=== PATIENT | male | born 1955 | race Caucasian/White ===

== ENCOUNTER → 2019-11-30 | Outpatient (CLI) | payer MEDICARE ==
[2019-11-30 11:24] LABS: African American GFR (CKD) >90 (>60 ml/min/1.73 sqM); Blood Urea Nitrogen 17 mg/dL (9-20); Non-African American GFR(CKD) >90 (>60 ml/min/1.73 sqM)
--- NOTE | 2019-11-30 12:56 | CT ---
EXAMINATION TYPE: CT soft tissue neck w con DATE OF EXAM: 11/30/2019 HISTORY: Bilateral neck tenderness with pain during swallowing. COMPARISON: NONE CT DLP: 603.9 mGycm. Automated Exposure Control for Dose Reduction was Utilized. TECHNIQUE: CT scan of the neck is performed with IV Contrast, patient injected with 100 mL of Isovue 300, axial images are obtained, coronal and sagittal reformatted images are reviewed. FINDINGS: Airway: There is irregularity at the tongue base and anterior margin of the vallecula that may repres ent secretions or folding however direct visualization is recommended given this patient's symptoms o f neck pain when swallowing. Piriform sinuses are unremarkable. True vocal cords are opposed and subo ptimally evaluated. False focal cords are unremarkable. Airway is significantly narrowed by tonsillar hypertrophy and diminutive at the level of the tonsils. Numerous dystrophic tonsilliths are also see n. Parotid/submandibular glands: Small calcification is present within the right parotid gland and the deep lobe. No additional gross abnormality seen. Carotid/Vascular Structures: Common carotid arteries and cervical portions of the internal carotid ar maggi are patent without hemodynamically significant stenosis. Vertebral arteries are also patent. Min imal atherosclerosis of the aortic arch. Osseous Structures: Moderate focal degenerative disc disease of the cervical spine at C4-C5 and C5-C6 with posterior projecting disc osteophyte complexes. Other: Superficial ovoid 7 mm density could represent a small lymph node, venous varix or sebaceous c yst. The lungs demonstrate mild background centrilobular emphysematous change and dependent subsegmen mary atelectasis. IMPRESSION: 1. Severe narrowing of the airway at the level of tonsils, diminutive and nearly obstructed due to to nsillar hypertrophy. 2. Irregularity of the tongue base and anterior vallecula that could represent simply folding or secr etions however direct visualization is recommended given the patient's complaint. 3. Punctate calcification in the deep lobe of the right parotid gland (sialolith). 4. Suboptimal evaluation of the true vocal cords given their close apposition. False focal cords are unremarkable.
[2019-12-01 11:57] LABS: ANA Pattern Homogeneous; ANA Pattern 2 See Footnote
== END | disposition home or self-care (01) ==
LOC: RADCTMAIN 10:28
PROVIDERS: ATTEND Otolaryngology
DX: J35.1 Hypertrophy of tonsils (principal); K11.8 Other diseases of salivary glands; R93.0 Abnormal findings on diagnostic imaging of skull and head, not elsewhere classified; K11.7 Disturbances of salivary secretion; K11.1 Hypertrophy of salivary gland
CPT/HCPCS: 85652; 82565; 84520; 86038; 86039; 86235; 70491; 36415; Q9967

== ENCOUNTER → 2021-07-17 | Outpatient (CLI) | payer MEDICARE ==
[2021-07-17 19:59] LABS: Albumin 4.2 g/dL (3.8-4.9); Albumin/Globulin Ratio 1.48 (1.60-3.17); Anion Gap 10.7 mmol/L (4.00-12.00); BUN/Creat Ratio 24.65 Ratio (12.00-20.00); Calcium 9.8 mg/dL (8.7-10.3); Carbon Dioxide 27.2 mmol/L (21.6-31.8); Chol/HDL Ratio 3.54 Ratio; Globulin 2.8 g/dL (1.6-3.3); HDL Cholesterol 42.1 mg/dL (40.00-60.00); LDL Cholesterol,Calculated 78.3 mg/dL (0.0-131.0); Non-African American GFR(CKD) 108.7 (60.0-200.0); Potassium 4.8 mmol/L (3.5-5.5); Total Bilirubin 0.3 mg/dL (0.30-1.20); VLDL Calculation 28.6 mg/dL (5.00-40.00)
== END | disposition home or self-care (01) ==
LOC: LABWHC1 10:29
PROVIDERS: ATTEND Internal Medicine Endocrinology, Diabetes & Metabolism
DX: E11.65 Type 2 diabetes mellitus with hyperglycemia (principal)
CPT/HCPCS: 36415; 80053; 80061; 82043; 82570; 83036; 84443

== ENCOUNTER → 2022-08-26 | Outpatient (CLI) | payer MEDICARE ==
[2022-08-26 15:07] LABS: ALT 18 U/L (10-49); AST 19 U/L (14-35); African American GFR (CKD) 124.2 (60.0-200.0); Albumin 4.2 g/dL (3.8-4.9); Albumin/Globulin Ratio 1.54 (1.60-3.17); Alkaline Phosphatase 95 U/L (41-126); BUN/Creat Ratio 18.51 Ratio (12.00-20.00); Blood Urea Nitrogen 10.7 mg/dL (9.0-27.0); Calcium 9.7 mg/dL (8.7-10.3); Carbon Dioxide 27.3 mmol/L (20.0-27.5); Chloride 102 mmol/L (96-109); Chol/HDL Ratio 3.95 Ratio; Globulin 2.7 g/dL (1.6-3.3); Glucose 161 mg/dL (70-110); LDL Cholesterol,Calculated 84.4 mg/dL (0.0-131.0); Non-African American GFR(CKD) 107.1 (60.0-200.0); Sodium 140 mmol/L (135-145); Total Protein 6.9 g/dL (6.2-8.2)
[2022-08-26 19:58] LABS: Microalbumin Creatinine Ratio <30 mg/g Creat (0-30); Urine Creatinine 15.9 mg/dL (39.0-259.0)
== END | disposition home or self-care (01) ==
LOC: LABWHC1 08:34
PROVIDERS: ATTEND Internal Medicine Endocrinology, Diabetes & Metabolism
DX: E11.65 Type 2 diabetes mellitus with hyperglycemia (principal)
CPT/HCPCS: 36415; 80053; 80061; 82043; 82570; 83036; 84443

== ENCOUNTER → 2023-03-07 | Outpatient (CLI) | payer MEDICARE ==
[2023-03-07 16:12] LABS: ALT 20 U/L (10-49); AST 18 U/L (14-35); Albumin 4.1 d/dL (3.8-4.9); Albumin/Globulin Ratio 1.64 Ratio (1.60-3.17); Alkaline Phosphatase 109 U/L (41-126); BUN/Creat Ratio 19.17 Ratio (12.00-20.00); Blood Urea Nitrogen 11.5 mg/dL (9.0-27.0); Calcium 9.9 mg/dL (8.7-10.3); Carbon Dioxide 26.2 mmol/L (21.6-31.8); Chloride 96 mmol/L (96-109); Chol/HDL Ratio 3.36 Ratio; Globulin 2.5 d/dL (1.6-3.3); Glucose 279 mg/dL (70-110); LDL Cholesterol,Calculated 67.6 mg/dL (0.0-131.0); Potassium 4.5 mmol/L (3.5-5.5); Sodium 135 mmol/L (135-145); Total Bilirubin 0.5 mg/dL (0.3-1.2); Total Protein 6.6 d/dL (6.2-8.2)
[2023-03-07 21:58] LABS: Microalbumin Creatinine Ratio <129 mg/g Cr (0-30); Urine Creatinine 9.3 mg/dL (39.0-259.0)
== END | disposition home or self-care (01) ==
LOC: LABWHC1 06:56
PROVIDERS: ATTEND Internal Medicine Endocrinology, Diabetes & Metabolism
DX: E11.65 Type 2 diabetes mellitus with hyperglycemia (principal)
CPT/HCPCS: 36415; 80053; 80061; 82043; 82570; 83036; 84443

== ENCOUNTER → 2023-06-06 | Outpatient (CLI) | payer MEDICARE ==
[2023-06-06 16:17] LABS: ALT 16 U/L (10-49); AST 19 U/L (14-35); Albumin 4.1 d/dL (3.8-4.9); Albumin/Globulin Ratio 1.71 Ratio (1.60-3.17); Alkaline Phosphatase 92 U/L (41-126); BUN/Creat Ratio 20.83 Ratio (12.00-20.00); Blood Urea Nitrogen 12.5 mg/dL (9.0-27.0); Calcium 9.5 mg/dL (8.7-10.3); Carbon Dioxide 27.5 mmol/L (21.6-31.8); Chloride 102 mmol/L (96-109); Chol/HDL Ratio 3.08 Ratio; Globulin 2.4 d/dL (1.6-3.3); Glucose 179 mg/dL (70-110); LDL Cholesterol,Calculated 69.4 mg/dL (0.0-131.0); Potassium 4.6 mmol/L (3.5-5.5); Sodium 140 mmol/L (135-145); Total Bilirubin 0.4 mg/dL (0.3-1.2); Total Protein 6.5 d/dL (6.2-8.2); VLDL Calculation 14.28 mg/dL (5.00-40.00)
[2023-06-07 02:57] LABS: Microalbumin Creatinine Ratio <111 mg/g Cr (0-30); Urine Creatinine 10.8 mg/dL (39.0-259.0)
== END | disposition home or self-care (01) ==
LOC: LABWHC1 08:33
PROVIDERS: ATTEND Internal Medicine Endocrinology, Diabetes & Metabolism
DX: E11.65 Type 2 diabetes mellitus with hyperglycemia (principal)
CPT/HCPCS: 36415; 80053; 80061; 82043; 82570; 83036; 84443

== ENCOUNTER → 2023-07-16 | Outpatient (CLI) | payer MEDICARE ==
[2023-07-16 10:03] LABS: African American GFR (CKD) >90 (>60 ml/min/1.73 sqM); Blood Urea Nitrogen 17 mg/dL (9-20); Non-African American GFR(CKD) >90 (>60 ml/min/1.73 sqM)
--- NOTE | 2023-07-16 11:17 | CT ---
EXAMINATION TYPE: CT chest w con DATE OF EXAM: 07/16/2023 COMPARISON: None HISTORY: Lung nodule, DALIA, recent hx PNE CT DLP: 557 mGycm Automated exposure control for dose reduction was used. CONTRAST: CT scan of the chest is performed with IV Contrast, patient injected with 100 mL of Isovue 300. FINDINGS: LUNGS: There is a 4.9 mm pulmonary nodule lateral segment right middle lobe. No additional nodules pr esent. Dependent atelectasis at the lung bases. There is no pleural effusion or pneumothorax seen. T he tracheobronchial tree is patent. MEDIASTINUM: There are no greater than 1 cm hilar or mediastinal lymph nodes. No pericardial effusi on is seen. Thoracic aorta is of normal caliber. The heart is mildly enlarged. UPPER ABDOMEN: No significant abnormality appreciated. OTHER: No additional significant abnormality is seen. IMPRESSION: 1.There is a 4.9 mm pulmonary nodule lateral segment right middle lobe. No additional nodules present . Twelve-month follow-up recommended.
== END | disposition home or self-care (01) ==
LOC: RADCTMAIN 08:55
PROVIDERS: ATTEND Internal Medicine Critical Care Medicine
DX: R91.1 Solitary pulmonary nodule (principal); R06.00 Dyspnea, unspecified
CPT/HCPCS: 82565; 84520; 71260; 36415; Q9967

== ENCOUNTER 2023-08-08 19:22 | Inpatient (IN) | payer MEDICARE ==
[2023-08-08 19:54] LABS: Glucose,Whole Blood 184 mg/dL (70-110)
[2023-08-08] MEDS ORDERED: ACETAMINOPHEN TAB 500 MG TAB PO STA (20:11)
[2023-08-08] MEDS ORDERED: SODIUM CHLORIDE 0.9% 1,000 ML IV STA (20:11)
--- NOTE | 2023-08-08 20:13 | XR ---
EXAMINATION TYPE: XR chest 1V portable DATE OF EXAM: 08/08/2023 Comparison: 10/29/2018 Clinical History: 68-year-old male confusion, altered mental status covid Findings: Heart upper limits of normal in size. Aorta within normal limits. Mild increased interstitial density . Mild hyperinflation. No ruthie consolidation or pleural effusion. IMPRESSION: COPD. Mild increased interstitial density could reflect bronchitis or subtle underlying COVID infiltr ates.
[2023-08-08 20:22] LABS: HCT 42.6 % (39.0-53.0); HGB 14.6 gm/dL (13.0-17.5); MCH 29.2 pg (25.0-35.0); MCHC 34.3 g/dL (31.0-37.0); MCV 85.1 fL (80.0-100.0); Mean Platelet Volume 7.9; Platelet Count 169 k/uL (150-450); RBC 5.01 m/uL (4.30-5.90); RDW 13.9 % (11.5-15.5); WBC 10.1 k/uL (3.8-10.6)
--- NOTE | 2023-08-08 20:40 | ED ---
General Adult HPI - General Chief complaint: Altered Mental Status Stated complaint: Altered Mental Time Seen by Provider: 08/08/23 19:42 Source: EMS Mode of arrival: EMS Limitations: altered mental status - History of Present Illness Initial comments: Dictation was produced using [employer] dictation software. please excuse any grammatical, word or spelling errors. Chief Complaint: 68-year-old male presents for altered mental status History of Present Illness: Patient is 68-year-old male presents emergency department for altered mental status. Patient has been positive for COVID-19 for 7 days. He's been sick and weak for the last 2 weeks. Currently patient is brought in by EMS after his family member called for concerns of altered mental status. Patient is vaccinated for COVID-19. Complains of total body pain, cough, shortness of breath. The ROS documented in this emergency department record has been reviewed and confirmed by me. Those systems with pertinent positive or negative responses have been documented in the HPI. All other systems are other negative and/or noncontributory. - Related Data Home Medications Medication Instructions Recorded Confirmed Albuterol Sulfate [Proair Hfa] 2 inhalation INHALATION Q6HR PRN 12/26/15 12/26/15 Ascorbic Acid [Vitamin C] 1 tab PO HS 12/26/15 01/02/16 Aspirin EC [Ecotrin] 325 mg PO DAILY 12/26/15 12/26/15 Levothyroxine Sodium [Synthroid] 1 tab PO DAILY 12/26/15 01/02/16 Lisinopril-Hctz 10-12.5 mg 1 tab PO DAILY 12/26/15 01/02/16 [Zestoretic 10-12.5] Meloxicam 15 mg PO DAILY PRN 12/26/15 01/02/16 Multivit-Min/FA/Lycopen/Lutein 1 tab PO DAILY 12/26/15 01/02/16 [Centrum Silver Tablet] Non Formulary Drug 10 mg PO DAILY 12/26/15 01/02/16 Omeprazole 20 mg PO DAILY 12/26/15 01/02/16 Simvastatin [Zocor] 40 mg PO HS 12/26/15 01/02/16 carvediloL [Coreg] 12.5 mg PO BID 12/26/15 01/02/16 metFORMIN HCL [Glucophage] 2 tab PO BID 12/26/15 01/02/16 sitaGLIPtin [Januvia] 50 mg PO DAILY 12/26/15 01/02/16 traMADol HCl [Ultram] 50 mg PO Q6H PRN 12/26/15 01/02/16 Allergies Allergy/AdvReac Type Severity Reaction Status Date / Time No Known Allergies Allergy Verified 08/08/23 19:33 Review of Systems ROS Statement: Those systems with pertinent positive or pertinent negative responses have been documented in the HPI. ROS Other: All systems not noted in ROS Statement are negative. Past Medical History Past Medical History: Coronary Artery Disease (CAD), COPD, Diabetes Mellitus, GERD/Reflux, Hyperlipidemia, Hypertension, Myocardial Infarction (AL), Musculoskeletal Disorder, Osteoarthritis (OA), Thyroid Disorder Additional Past Medical History / Comment(s): underactive thyroid, L2, L3 spinal vertebrae abnormality Last Myocardial Infarction Date:: 11/2011 History of Any Multi-Drug Resistant Organisms: None Reported Past Surgical History: Heart Catheterization With Stent, Orthopedic Surgery Additional Past Surgical History / Comment(s): 1984 - left knee surgery - ligament repair left knee Past Anesthesia/Blood Transfusion Reactions: No Reported Reaction Date of Last Stent Placement:: 11/2011 Past Psychological History: No Psychological Hx Reported Smoking Status: Current every day smoker Past Alcohol Use History: Rare Past Drug Use History: None Reported - Past Family History Father Family Medical History: No Reported History General Exam - General Exam Comments Initial Comments: PHYSICAL EXAM: General Impression: Alert and oriented x3, not in acute distress HEENT: Normocephalic atraumatic, extra-ocular movements intact, pupils equal and reactive to light bilaterally, mucous membranes moist. Cardiovascular: Heart regular rate and rhythm Chest: Able to complete full sentences, no retractions, no tachypnea Abdomen: abdomen soft, non-tender, non-distended, no organomegaly Musculoskeletal: Pulses present and equal in all extremities, no peripheral edema Motor: no focal deficits noted Neurological: CN II-XII grossly intact, no focal motor or sensory deficits noted Skin: Intact with no visualized rashes Psych: Normal affect and mood Limitations: altered mental status Course Vital Signs 08/08/23 19:23 Temperature 102.1 F H Pulse Rate 109 H Respiratory 20 Rate Blood Pressure 121/75 O2 Sat by Pulse 93 L Oximetry EKG Findings - EKG Comments: EKG Findings:: My EKG interpretation: Ventricular rate 111, sinus tachycardia,. 156, QRS 106, QTC 340. No VA prolongation, no QTC prolongation, no ST or T-wave changes noted. Overall, this EKG is unremarkable Medical Decision Making - Medical Decision Making Was pt. sent in by a medical professional or institution (, MIHIR, STEAM FITTER SUPERVISOR, urgent care, hospital, or alf...) When possible be specific @ -No Did you speak to anyone other than the patient for history (EMS, parent, family, police, friend...)? What history was obtained from this source @ -No Did you review nursing and triage notes (agree or disagree)? Why? @ -I reviewed and agree with nursing and triage notes Were old charts reviewed (outside hosp., previous admission, EMS record, old EKG, old radiological studies, urgent care reports/EKG's, alf records)? Report findings @ -No old charts were reviewed Differential Diagnosis (chest pain, altered mental status, abdominal pain women, abdominal pain men, vaginal bleeding, musculoskeletal, weakness, fever, dyspnea, syncope, headache, dizziness, GI bleed, back pain, seizure, CVA, palpatations, mental health)? @ -Differential Altered Mental Status: Hypoglycemia, DKA, hypercapnia, ETOH, overdose, CO poisoning, trauma, myxedema coma, HTN encephalopathy, infection, encephalitis, psychosis, intercranial hemorrhage, hepatic encephalopathy, meningitis, CVA, this is not meant to be an all-inclusive list EKG interpreted by me (3pts min.). @ -None done X-rays interpreted by me (1pt min.). @ -X-ray shows no acute processes. CT interpreted by me (1pt min.). @ -Computed tomography scan the brain shows no acute processes intracranial U/S interpreted by me (1pt. min.). @ -None done What testing was considered but not performed or refused? (CT, X-rays, U/S, la bs)? Why? @ -None What meds were considered but not given or refused? Why? @ -None Did you discuss the management of the patient with other professionals (professionals i.e. MIHIR Eldridge, STEAM FITTER SUPERVISOR, lab, RT, psych nurse, social security specialist, director of publications, teacher, transportation security officer, case checker)? Give summary @ -Case discussed with hospitalist for admission Was smoking cessation discussed for >3mins.? @ -No Was critical care preformed (if so, how long)? @ -No Were there social determinants of health that impacted care today? How? (Homelessness, low income, unemployed, alcoholism, drug addiction, transportation, low edu. Level, literacy, decrease access to med. care, senior care, rehab)? @ -No Was there de-escalation of care discussed even if they declined (Discuss DNR or withdrawal of care, Hospice)? DNR status @ -No What co-morbidities impacted this encounter? (DM, HTN, Smoking, COPD, CAD, Cancer, CVA, ARF, Chemo, Hep., AIDS, mental health diagnosis, sleep apnea, morbid obesity)? @ -None Was patient admitted / discharged? Hospital course, mention meds given and route, prescriptions, significant lab abnormalities, going to OR and other pertinent info. @ -68-year-old male presents emergency department for altered mental status. Denies been positive for cocaine 19 for approximately 2 weeks. Patient is alert and oriented 4. Family at the bedside states that he's been confused and weak. Vital signs upon arrival shows 92% on nasal cannula. Temperature 12.1. Patient given antipyretics. Laboratory evaluation shows normal CBC, coag panel negative. D-dimer is a sit appropriate. Potassium 3.1. COVID-19 is positive. Patient became hypoxic after trial with no supplemental oxygen patient dropped to the 89% at the bedside. Patient given Decadron. Patient will be admitted with constipation pulmonology for hypoxia. Undiagnosed new problem with uncertain prognosis? @ -No Drug Therapy requiring intensive monitoring for toxicity (Heparin, Nitro, Insulin, Cardizem)? @ -No Were any procedures done? @ -No Diagnosis/symptom? Acute, or Chronic, or Acute on Chronic? Uncomplicated (without systemic symptoms) or Complicated (systemic symptoms)? @ -Respiratory failure Side effects of treatment? @ -No Exacerbation, Progression, or Severe Exacerbation? @ -No Poses a threat to life or bodily function? How? (Chest pain, USA, AL, pneumonia, PE, COPD, DKA, ARF, appy, cholecystitis, CVA, Diverticulitis, Homicidal, Suicidal, threat to staff... and all critical care pts) @ -yes - Lab Data Result diagrams: 08/08/23 20:03 08/08/23 20:03 Lab Results 08/08/23 08/08/2323 Range/Units 19:53 20:03 20:03 WBC 10.1 (3.8-10.6) k/uL RBC 5.01 (4.30-5.90) m/uL Hgb 14.6 (13.0-17.5) gm/dL Hct 42.6 (39.0-53.0) % MCV 85.1 (80.0-100.0) fL MCH 29.2 (25.0-35.0) pg MCHC 34.3 (31.0-37.0) g/dL RDW 13.9 (11.5-15.5) % Plt Count 169 (150-450) k/uL MPV 7.9 Neutrophils % (Manual) 74 % Band Neuts % (Manual) 14 % Lymphocytes % (Manual) 3 % Monocytes % (Manual) 8 % Metamyelocytes % 1 % Myelocytes % 1 % Neutrophils # (Manual) 8.80 H (1.3-7.7) k/uL Lymphocytes # (Manual) 0.30 L (1.0-4.8) k/uL Monocytes # (Manual) 0.81 (0-1.0) k/uL Metamyelocytes # (Man) 0.10 H (0) k/uL Myelocytes # (Manual) 0.10 H (0) k/uL Nucleated RBCs 0 (0-0) /100 WBC Manual Slide Review Performed Toxic Granulation Present Toxic Vacuolation Present PT 10.4 (10.0-12.5) sec INR 0.9 (<1.2) APTT 28.6 (22.0-30.0) sec D-Dimer 0.60 H (<0.60) mg/L FEU Sodium (137-145) mmol/L Potassium (3.5-5.1) mmol/L Chloride (98-107) mmol/L Carbon Dioxide (22-30) mmol/L Anion Gap mmol/L BUN (9-20) mg/dL Creatinine (0.66-1.25) mg/dL Est GFR (CKD-EPI)AfAm (>60 ml/min/1.73 sqM) Est GFR (CKD-EPI)NonAf (>60 ml/min/1.73 sqM) Glucose (74-99) mg/dL POC Glucose (mg/dL) 184 H (70-110) mg/dL POC Glu Extrusion Die Template Maker ID Elyse Blancas Plasma Lactic Acid Ty (0.7-2.0) mmol/L Calcium (8.4-10.2) mg/dL TSH (0.465-4.680) mIU/L Influenza Type A (PCR) (Not Detectd) Influenza Type B (PCR) (Not Detectd) RSV (PCR) (Not Detectd) SARS-CoV-2 (PCR) (Not Detectd) 08/08/23 08/08/23 08/08/23 Range/Units 20:03 20:03 20:14 WBC (3.8-10.6) k/uL RBC (4.30-5.90) m/uL Hgb (13.0-17.5) gm/dL Hct (39.0-53.0) % MCV (80.0-100.0) fL MCH (25.0-35.0) pg MCHC (31.0-37.0) g/dL RDW (11.5-15.5) % Plt Count (150-450) k/uL MPV Neutrophils % (Manual) % Band Neuts % (Manual) % Lymphocytes % (Manual) % Monocytes % (Manual) % Metamyelocytes % % Myelocytes % % Neutrophils # (Manual) (1.3-7.7) k/uL Lymphocytes # (Manual) (1.0-4.8) k/uL Monocytes # (Manual) (0-1.0) k/uL Metamyelocytes # (Man) (0) k/uL Myelocytes # (Manual) (0) k/uL Nucleated RBCs (0-0) /100 WBC Manual Slide Review Toxic Granulation Toxic Vacuolation PT (10.0-12.5) sec INR (<1.2) APTT (22.0-30.0) sec D-Dimer (<0.60) mg/L FEU Sodium 134 L (137-145) mmol/L Potassium 3.1 L (3.5-5.1) mmol/L Chloride 99 (98-107) mmol/L Carbon Dioxide 25 (22-30) mmol/L Anion Gap 10 mmol/L BUN 16 (9-20) mg/dL Creatinine 0.48 L (0.66-1.25) mg/dL Est GFR (CKD-EPI)AfAm >90 (>60 ml/min/1.73 sqM) Est GFR (CKD-EPI)NonAf >90 (>60 ml/min/1.73 sqM) Glucose 186 H (74-99) mg/dL POC Glucose (mg/dL) (70-110) mg/dL POC Glu Extrusion Die Template Maker ID Plasma Lactic Acid Ty 1.2 (0.7-2.0) mmol/L Calcium 8.9 (8.4-10.2) mg/dL TSH 0.878 (0.465-4.680) mIU/L Influenza Type A (PCR) Not Detected (Not Detectd) Influenza Type B (PCR) Not Detected (Not Detectd) RSV (PCR) Not Detected (Not Detectd) SARS-CoV-2 (PCR) Detected A (Not Detectd) Disposition Clinical Impression: Coronavirus infection Disposition: ADMITTED IP TO THIS [facility] Condition: Fair Referrals: Dalia Canales DO [Primary Care Provider] - 1-2 days Decision Time: 22:09
[2023-08-08 20:47] LABS: INR 0.9 (<1.2); Partial Thromboplastin Time 28.6 sec (22.0-30.0); Prothrombin Time 10.4 sec (10.0-12.5)
[2023-08-08 20:52] LABS: African American GFR (CKD) >90 (>60 ml/min/1.73 sqM); Anion Gap 10 mmol/L; Blood Urea Nitrogen 16 mg/dL (9-20); Calcium 8.9 mg/dL (8.4-10.2); Carbon Dioxide 25 mmol/L (22-30); Chloride 99 mmol/L (98-107); Glucose 186 mg/dL (74-99); Non-African American GFR(CKD) >90 (>60 ml/min/1.73 sqM); Potassium 3.1 mmol/L (3.5-5.1); Sodium 134 mmol/L (137-145)
[2023-08-08 21:23] LABS: Band Neutrophils % 14 %; Metamyelocytes % 1 %; Monocytes # (M) 0.81 k/uL (0-1.0); Myelocytes % 1 %; Neutrophils % (M) 74 %; Nucleated Red Blood Cells 0 /100 WBC (0-0); Total Cells Counted 200
[2023-08-08 21:24] LABS: Toxic Vacuolation Present
[2023-08-08 21:25] LABS: Toxic Granulation Present
--- NOTE | 2023-08-08 21:44 | CT ---
EXAMINATION TYPE: CT brain wo con DATE OF EXAM: 08/08/2023 COMPARISON: None HISTORY: 68-year-old male altered mental status, Weakness, confusion. TECHNIQUE: Examination was done in axial plane without intravenous contrast. Coronal and sagittal r econstructions performed. CT DLP: 1124.4 mGycm Automated exposure control for dose reduction was used. FINDINGS: There is no evidence of acute intracranial hemorrhage, acute ischemic changes, mass, mass-effect, or extra-axial fluid collection. There is no effacement of cerebral sulci or basal subarachnoid cister ns. There is no hydrocephalus. There is no midline shift. Sanchez-white matter distinction is preserv ed. Atherosclerotic calcifications within the carotid siphons. Lacunar infarct left caudate head. Mild pe riventricular white matter hypodensities. Mild mucosal thickening throughout the ethmoid air cells. Some fluid within the inferior left mastoid air cells. Leftward nasal septal deviation. Orbits and globes appear intact. IMPRESSION: Mild changes of chronic small vessel ischemic disease. No acute intracranial abnormality seen. Mild chronic ethmoid sinus disease. Some fluid in the inferior left mastoid air cells. Correlate for any mastoid pain to exclude mastoidi tis.
[2023-08-08] MEDS ORDERED: DEXAMETHASONE SOD PHOSPHATE 10 MG/ML 1 ML VIAL IV STA (21:59)
[2023-08-08] MEDS ORDERED: NALOXONE 0.4 MG/ML 1 ML VIAL IV PRN (22:02)
[2023-08-08] MEDS: SODIUM CHLORIDE 0.9% 1,000 ML IV SCH (22:29)
[2023-08-09 05:27] LABS: Glucose,Whole Blood 247 mg/dL (70-110)
[2023-08-09] MEDS ORDERED: ALBUTEROL NEBULIZED 2.5 MG/3 ML INHALATION PRN (08:33)
[2023-08-09] MEDS ORDERED: DEXTROSE 50% SYRINGE 50 ML IVP PRN ×4 (08:35→12:52)
[2023-08-09] MEDS ORDERED: LISINOPRIL-HCTZ 10-12.5 MG 1 EACH TAB PO SCH (08:45)
[2023-08-09] MEDS: ASPIRIN 325 MG TAB PO SCH (08:59)
[2023-08-09] MEDS: FAMOTIDINE 20 MG TAB PO SCH ×2 (08:59→21:02)
[2023-08-09] MEDS: metFORMIN 500 MG TAB PO SCH ×2 (08:59→21:03)
[2023-08-09] MEDS: PANTOPRAZOLE 40 MG TABLET PO SCH (08:59)
[2023-08-09] MEDS: GLIMEPIRIDE 4 MG TAB PO SCH (09:00)
[2023-08-09] MEDS: buPROPion XL 150 MG TAB.ER.24H PO SCH ×2 (09:00→21:02)
[2023-08-09] MEDS: MELOXICAM 7.5 MG TAB PO SCH (09:00)
[2023-08-09] MEDS: LEVOTHYROXINE 137 MCG TAB PO SCH (09:00)
[2023-08-09] MEDS: LORATADINE 10 MG TAB PO SCH (09:01)
[2023-08-09] MEDS: MULTIVITAMINS, THERA 1 EACH TAB PO SCH (09:01)
[2023-08-09] MEDS: CHOLECALCIFEROL 125 MCG (5000 IU) TABLET PO SCH (09:01)
[2023-08-09] MEDS: carvediloL 12.5 MG TAB PO SCH ×2 (09:01→17:14)
[2023-08-09] MEDS: ACETAMINOPHEN TAB 325 MG TAB PO PRN ×2 (10:05→14:04)
[2023-08-09] MEDS ORDERED: dexAMETHasone 2 MG TAB PO SCH (11:00)
[2023-08-09 11:48] LABS: Glucose,Whole Blood 234 mg/dL (70-110)
[2023-08-09] MEDS: ENOXAPARIN 40 MG/0.4 ML SYRINGE SQ SCH (11:52)
[2023-08-09] MEDS: INSULIN ASPART (NovoLOG) 100 UNIT/ML VIAL SQ SCH ×3 (11:53→21:02)
--- NOTE | 2023-08-09 12:57 | P.HPIM ---
History of Present Illness H&P Date: 08/09/23 Chief Complaint: Short of breath cough This is a 68-year-old patient follows Dr. Miller. Chronic stable medical conditions include CAD with stent in 2011, diabetes, GERD, hypertension, hyperlipidemia, prostatitis, hypothyroid,. Patient is a smoker. Patient tested positive for COVID 6 days ago. Started getting symptoms or shortness of breath cough or sputum that is not able to expectorate. In the last 2 days symptoms became much worse. Fever. Chills. Bodyaches. Her appetite for last 3 days. Admitted for the same. Patient's pulse ox was down to 90% on room air. Patient's is also admitted to the hospital COVID. Patient also diagnosed with COVID. Review of systems: GEN.: Decreased appetite tired EYES: None HEENT: None NECK: None RESPIRATORY: As above CARDIOVASCULAR: None GASTROINTESTINAL: None GENITOURINARY: None MUSCULOSKELETAL: 20 joint pains LYMPHATICS: None HEMATOLOGICAL: None PSYCHIATRY: None NEUROLOGICAL: None Past medical history to include: CAD raised in 2011,'s COPD, diabetes, GERD, hypertension, hyperlipidemia, osteoarthritis, hypothyroid, Social history: . Did different jobs. Currently retired. Smokes an average of 2 packs a day for last 50 years. Alcohol rarely Physical examination: VITAL SIGNS: 102.1, 109, 20, 1 21 x 75, 90% on room air GENERAL: BMI 29.5, reclining in bed awake tired short of breath. EYES: Pupils equal. Conjunctiva normal. HEENT: External appearance of nose and ears normal, oral cavity grossly normal. NECK: JVD not raised; masses not palpable. HEART: First and second heart sounds are normal; no edema. LUNGS: Respiratory rate increased; diminished breath sounds, prolonged expirat ion and wheezing coarse crackles. ABDOMEN: Soft, nontender, liver spleen not palpable, no masses palpable. PSYCH: Alert and oriented x3; mood and affect anxiousl. MUSCULOSKELETAL:No Clubbing/cyanosis;muscles-grossly intact NEUROLOGICAL: Cranial nerves grossly intact; no facial asymmetry, power and sensation grossly intact. LYMPHATICS: No lymph nodes palpable in the axilla and neck INVESTIGATIONS, reviewed in the clinical context: White count 10.1 hemoglobin 14.6 platelets 169 neutrophils 8.8 d-dimer 0.6 sodium 134 potassium 3.1 BUN 16 creatinine 0.48 blood glucose 186 Procalcitonin 1.2 TSH 0.878 COVID: PCR positive EKG tracing personally reviewed by me-sinus tachycardia. Nonspecific T-wave changes. Chest x-ray film personally reviewed by me-some scattered infiltrates Assessment and plan: -Acute COVID 19 pneumonitis causing hypoxia and sepsis Dexamethasone -Sepsis secondary to Covid 19 pneumonitis IV fluids -Acute COPD exacerbation in a current smoker Ventolin 6 puffs with spacer every 4. Symbicort -Diabetes mellitus type 2 and oral hypoglycemic Glyburide, metformin. Actos Follow Accu-Cheks and sliding scale insulin -Chronic nicotine dependence, cigarette smoker Nicotine patch -Hyperlipidemia Lipitor 20 mg daily at bedtime -Depression Celexa 20 mg daily at bedtime -GERD Pepcid 20 mg twice a day -Hypothyroid Levothyroxine 137 g a day -Essential hypertension Continue Coreg. Hold lisinopril as blood pressure running in the lower side Care was discussed with the patient and daughter the bedside. Dr. Sanchez consulted. Past Medical History Past Medical History: Coronary Artery Disease (CAD), COPD, Diabetes Mellitus, GERD/Reflux, Hyperlipidemia, Hypertension, Myocardial Infarction ([place]), Musculoskeletal Disorder, Osteoarthritis (OA), Thyroid Disorder Additional Past Medical History / Comment(s): underactive thyroid, L2, L3 spinal vertebrae abnormality Last Myocardial Infarction Date:: 11/2011 History of Any Multi-Drug Resistant Organisms: None Reported Past Surgical History: Heart Catheterization With Stent, Orthopedic Surgery Additional Past Surgical History / Comment(s): 1984 - left knee surgery - ligament repair left knee Past Anesthesia/Blood Transfusion Reactions: No Reported Reaction Date of Last Stent Placement:: 11/2011 Past Psychological History: No Psychological Hx Reported Smoking Status: Current every day smoker Past Alcohol Use History: Rare Additional Past Alcohol Use History / Comment(s): Quit 2003 Past Drug Use History: None Reported - Past Family History Father Family Medical History: No Reported History Medications and Allergies Home Medications Medication Instructions Recorded Confirmed Type Albuterol Sulfate [Proair Hfa] 2 puff INHALATION RT-QID PRN 12/26/15 08/08/23 History Aspirin EC [Ecotrin] 325 mg PO W/BRKFST 12/26/15 08/08/23 History Lisinopril-Hctz 10-12.5 mg 1 tab PO AC-BRKFST 12/26/15 08/08/23 History [Zestoretic 10-12.5] Meloxicam 15 mg PO AC-BRKFST 12/26/15 08/08/23 History Omeprazole 20 mg PO AC-BRKFST 12/26/15 08/08/23 History carvediloL [Coreg] 12.5 mg PO BID 12/26/15 08/08/23 History Ascorbic Acid [Vitamin C] 1,000 mg PO HS 08/08/23 08/08/23 History Atorvastatin [Lipitor] 20 mg PO HS 08/08/23 08/08/23 History Cholecalciferol [Vitamin D3 (125 125 mcg PO AC-BRKFST 08/08/23 08/08/23 History Mcg = 5000 Iu)] Citalopram Hydrobromide [CeleXA] 20 mg PO HS 08/08/23 08/08/23 History Famotidine [Pepcid] 20 mg PO BID 08/08/23 08/08/23 History Fluticasone Propion/Salmeterol 1 puff INHALATION RT-BID 08/08/23 08/08/23 History [Wixela 500-50 Inhub] Glimepiride [Amaryl] 4 mg PO W/BRKFST 08/08/23 08/08/23 History Insulin Aspart [NovoLOG Flexpen] 5 - 10 units SQ AC-TID 08/08/23 08/08/23 History Insulin Glargine,Hum.rec.anlog 24 units SQ HS 08/08/23 08/08/23 History [[place] Solostar] Levothyroxine Sodium 137 mcg PO AC-BRKFST 08/08/23 08/08/23 History Loratadine [Claritin] 10 mg PO AC-BRKFST 08/08/23 08/08/23 History Mv-Min/Folic/K1/Lycopen/Lutein 1 tab PO DAILY 08/08/23 08/08/23 History [Centrum Silver Men Tablet] Pioglitazone [Actos] 30 mg PO HS 08/08/23 08/08/23 History Tiotropium [place] [Spiriva] 1 cap INHALATION RT-DAILY 08/08/23 08/08/23 History buPROPion XL [Wellbutrin XL] 150 mg PO BID 08/08/23 08/08/23 History metFORMIN HCL 1,000 mg PO BID 08/08/23 08/08/23 History Allergies Allergy/AdvReac Type Severity Reaction Status Date / Time No Known Allergies Allergy Verified 08/08/23 19:33 Physical Exam Vitals: Vital Signs Temp Pulse Pulse Resp BP BP Pulse Ox 08/09/23 08:40 100.3 F H 77 18 134/80 93 L 08/09/23 03:30 97.9 F 83 18 141/85 94 L 08/09/23 02:00 92 18 111/75 94 L 08/09/23 00:00 99 20 105/55 92 L 08/08/23 22:30 90 20 93/67 91 L 08/08/23 21:30 102 H 20 96/70 98 08/08/23 20:32 110 H 24 109/60 90 L 08/08/23 19:23 102.1 F H 109 H 20 121/75 93 L Intake and Output 08/08/23 08/09/23 08/09/23 22:59 06:59 14:59 Other: # Voids 1 Weight 90.718 kg 90.718 kg Results CBC & Chem 7: 08/08/23 20:03 08/08/23 20:03 Labs: Abnormal Lab Results - Last 24 Hours (Table) 08/08/23 08/08/23 08/08/23 Range/Units 19:53 20:03 20:03 Neutrophils # (Manual) 8.80 H (1.3-7.7) k/uL Lymphocytes # (Manual) 0.30 L (1.0-4.8) k/uL Metamyelocytes # (Man) 0.10 H (0) k/uL Myelocytes # (Manual) 0.10 H (0) k/uL D-Dimer 0.60 H (<0.60) mg/L FEU Sodium (137-145) mmol/L Potassium (3.5-5.1) mmol/L Creatinine (0.66-1.25) mg/dL Glucose (74-99) mg/dL POC Glucose (mg/dL) 184 H (70-110) mg/dL Procalcitonin (0.02-0.09) ng/mL SARS-CoV-2 (PCR) (Not Detectd) 08/08/23 08/08/23 08/08/23 Range/Units 20:03 20:03 20:03 Neutrophils # (Manual) (1.3-7.7) k/uL Lymphocytes # (Manual) (1.0-4.8) k/uL Metamyelocytes # (Man) (0) k/uL Myelocytes # (Manual) (0) k/uL D-Dimer (<0.60) mg/L FEU Sodium 134 L (137-145) mmol/L Potassium 3.1 L (3.5-5.1) mmol/L Creatinine 0.48 L (0.66-1.25) mg/dL Glucose 186 H (74-99) mg/dL POC Glucose (mg/dL) (70-110) mg/dL Procalcitonin 1.20 H (0.02-0.09) ng/mL SARS-CoV-2 (PCR) Detected A (Not Detectd) 08/09/23 Range/Units 05:26 Neutrophils # (Manual) (1.3-7.7) k/uL Lymphocytes # (Manual) (1.0-4.8) k/uL Metamyelocytes # (Man) (0) k/uL Myelocytes # (Manual) (0) k/uL D-Dimer (<0.60) mg/L FEU Sodium (137-145) mmol/L Potassium (3.5-5.1) mmol/L Creatinine (0.66-1.25) mg/dL Glucose (74-99) mg/dL POC Glucose (mg/dL) 247 H (70-110) mg/dL Procalcitonin (0.02-0.09) ng/mL SARS-CoV-2 (PCR) (Not Detectd)
[2023-08-09] MEDS ORDERED: ALBUTEROL HFA INHALER INHALATION PRN (13:06)
--- NOTE | 2023-08-09 13:51 | P.CNPUL ---
History of Present Illness Consult date: 08/09/23 Reason for consult: dyspnea Chief complaint: DYspnea, Covid 19 infection History of present illness: Patient is 68-year-old male presents emergency department for altered mental status. Patient has been positive for COVID-19 for 7 days. He's been sick and weak for the last 2 weeks. Currently patient is brought in by EMS after his family member called for concerns of altered mental status. . The patient been feeling lethargic, weak, and becoming more incoherent and at the same time feeling tired and fatigued without any stamina or energy. His oral intake has also been diminished and the patient was complaining of some shortness of breath in addition. He has not been infected with Covid 19 in the past and this is current infection. His symptoms started approximately 10 days ago and the patient tested positive approximately a week ago based on an outpatient. He has not received any treatment on outpatient basis. Patient is vaccinated for COVID-19 2 and the patient not been infected in the past.. Complains of total body pain, cough, shortness of breath.. The patient's is admitted for the same and currently she is hospitalized for Covid 19 infection and pneumonia. He has no focal neurological deficit and a CAT scan of the brain was negative. The chest x-ray showed no acute abnormalities. He has COPD. There is some mild increased interstitial markings bilaterally which could reflect bronchitis or limited Covid 19 related pneumonia changes. The patient is currently on 2 L of oxygen nasal cannula with pulse ox of 93% patient is running a low-grade fever. Also, his echoes at 10.1 with a hemoglobin of 14.6 and a platelet count of 146. D-dimer is at 0.6. Sodium is at 134 with a potassium level of 3.1. BUN is 16 with a creatinine of 0.4. Pro-calcitonin level is at 1.2. TSH 0.8. LDH level is at 117. Review of Systems Constitutional: Reports daytime sleepiness, Reports fatigue, Reports fever, Reports lethargy, Reports poor appetite, Reports weakness Eyes: denies as per HPI, denies blurred vision, denies bulging eye, denies decreased vision, denies diplopia, denies discharge, denies dry eye, denies irritation, denies itching, denies pain, denies photophobia, denies loss of peripheral vision, denies loss of vision, denies tunnel vision/blind spots Ears: deny: decreased hearing, ear discharge, earache, tinnitus Ears, nose, mouth and throat: Reports as per HPI Breasts: absent: as per HPI, gynecomastia Cardiovascular: Reports as per HPI Respiratory: Reports cough, Reports dyspnea Gastrointestinal: Reports as per HPI, Reports loss of appetite Genitourinary: Reports as per HPI Musculoskeletal: Reports as per HPI Musculoskeletal: absent: ankle pain, ankle stiffness, ankle swelling Integumentary: Reports as per HPI Neurological: Reports as per HPI, Reports confusion Psychiatric: Reports as per HPI Endocrine: Reports as per HPI, Reports fatigue Hematologic/Lymphatic: Reports as per HPI Past Medical History Past Medical History: Coronary Artery Disease (CAD), COPD, Diabetes Mellitus, GERD/Reflux, Hyperlipidemia, Hypertension, Myocardial Infarction ([place]), Musculoskeletal Disorder, Osteoarthritis (OA), Thyroid Disorder Additional Past Medical History / Comment(s): underactive thyroid, L2, L3 spinal vertebrae abnormality Last Myocardial Infarction Date:: 11/2011 History of Any Multi-Drug Resistant Organisms: None Reported Past Surgical History: Heart Catheterization With Stent, Orthopedic Surgery Additional Past Surgical History / Comment(s): 1984 - left knee surgery - ligament repair left knee Past Anesthesia/Blood Transfusion Reactions: No Reported Reaction Date of Last Stent Placement:: 11/2011 Past Psychological History: No Psychological Hx Reported Smoking Status: Current every day smoker Past Alcohol Use History: Rare Additional Past Alcohol Use History / Comment(s): Quit 2003 Past Drug Use History: None Reported - Past Family History Father Family Medical History: No Reported History Medications and Allergies Home Medications Medication Instructions Recorded Confirmed Type Albuterol Sulfate [Proair Hfa] 2 puff INHALATION RT-QID PRN 12/26/15 08/08/23 History Aspirin EC [Ecotrin] 325 mg PO W/BRKFST 12/26/15 08/08/23 History Lisinopril-Hctz 10-12.5 mg 1 tab PO AC-BRKFST 12/26/15 08/08/23 History [Zestoretic 10-12.5] Meloxicam 15 mg PO AC-BRKFST 12/26/15 08/08/23 History Omeprazole 20 mg PO AC-BRKFST 12/26/15 08/08/23 History carvediloL [Coreg] 12.5 mg PO BID 12/26/15 08/08/23 History Ascorbic Acid [Vitamin C] 1,000 mg PO HS 08/08/23 08/08/23 History Atorvastatin [Lipitor] 20 mg PO HS 08/08/23 08/08/23 History Cholecalciferol [Vitamin D3 (125 125 mcg PO AC-BRKFST 08/08/23 08/08/23 History Mcg = 5000 Iu)] Citalopram Hydrobromide [CeleXA] 20 mg PO HS 08/08/23 08/08/23 History Famotidine [Pepcid] 20 mg PO BID 08/08/23 08/08/23 History Fluticasone Propion/Salmeterol 1 puff INHALATION RT-BID 08/08/23 08/08/23 History [Wixela 500-50 Inhub] Glimepiride [Amaryl] 4 mg PO W/BRKFST 08/08/23 08/08/23 History Insulin Aspart [NovoLOG Flexpen] 5 - 10 units SQ AC-TID 08/08/23 08/08/23 History Insulin Glargine,Hum.rec.anlog 24 units SQ HS 08/08/23 08/08/23 History [[place] Solostar] Levothyroxine Sodium 137 mcg PO AC-BRKFST 08/08/23 08/08/23 History Loratadine [Claritin] 10 mg PO AC-BRKFST 08/08/23 08/08/23 History Mv-Min/Folic/K1/Lycopen/Lutein 1 tab PO DAILY 08/08/23 08/08/23 History [Centrum Silver Men Tablet] Pioglitazone [Actos] 30 mg PO HS 08/08/23 08/08/23 History Tiotropium [place] [Spiriva] 1 cap INHALATION RT-DAILY 08/08/23 08/08/23 History buPROPion XL [Wellbutrin XL] 150 mg PO BID 08/08/23 08/08/23 History metFORMIN HCL 1,000 mg PO BID 08/08/23 08/08/23 History Allergies Allergy/AdvReac Type Severity Reaction Status Date / Time No Known Allergies Allergy Verified 08/08/23 19:33 Physical Exam Vitals: Vital Signs Temp Pulse Pulse Resp BP BP Pulse Ox 08/09/23 08:40 100.3 F H 77 18 134/80 93 L 08/09/23 03:30 97.9 F 83 18 141/85 94 L 08/09/23 02:00 92 18 111/75 94 L 08/09/23 00:00 99 20 105/55 92 L 08/08/23 22:30 90 20 93/67 91 L 08/08/23 21:30 102 H 20 96/70 98 08/08/23 20:32 110 H 24 109/60 90 L 08/08/23 19:23 102.1 F H 109 H 20 121/75 93 L Intake and Output 08/08/23 08/09/23 08/09/23 22:59 06:59 14:59 Other: # Voids 1 Weight 90.718 kg 90.718 kg GENERAL: BMI 29.5, reclining in bed awake tired short of breath. The patient is currently on 2 L of O2 nasal cannula Head exam was generally normal. There was no scleral icterus or corneal arcus. Mucous membranes were moist. EYES: Pupils equal. Conjunctiva normal. HEENT: External appearance of nose and ears normal, oral cavity grossly normal. NECK: JVD not raised; masses not palpable. HEART: First and second heart sounds are normal; no edema. LUNGS: Respiratory rate increased; diminished breath sounds, prolonged expiration and wheezing coarse crackles. ABDOMEN: Soft, nontender, liver spleen not palpable, no masses palpable. PSYCH: Alert and oriented x3; mood and affect anxiousl. MUSCULOSKELETAL:No Clubbing/cyanosis;muscles-grossly intact NEUROLOGICAL: Cranial nerves grossly intact; no facial asymmetry, power and sensation grossly intact. LYMPHATICS: No lymph nodes palpable in the axilla and neck Examination of the skin revealed no evidence of significant rashes, suspicious appearing nevi or other concerning lesions. Results - Laboratory Findings CBC and BMP: 08/08/23 20:03 08/08/23 20:03 PT/INR, D-dimer PT 10.4 sec (10.0-12.5) 08/08/23 20:03 INR 0.9 (<1.2) 08/08/23 20:03 D-Dimer 0.60 mg/L FEU (<0.60) H 08/08/23 20:03 Abnormal lab findings: Abnormal Labs 08/08/23 08/08/23 08/08/23 19:53 20:03 20:03 Neutrophils # (Manual) 8.80 H Lymphocytes # (Manual) 0.30 L Metamyelocytes # (Man) 0.10 H Myelocytes # (Manual) 0.10 H D-Dimer 0.60 H Sodium Potassium Creatinine Glucose POC Glucose (mg/dL) 184 H Procalcitonin SARS-CoV-2 (PCR) 08/08/23 08/08/23 08/08/23 20:03 20:03 20:03 Neutrophils # (Manual) Lymphocytes # (Manual) Metamyelocytes # (Man) Myelocytes # (Manual) D-Dimer Sodium 134 L Potassium 3.1 L Creatinine 0.48 L Glucose 186 H POC Glucose (mg/dL) Procalcitonin 1.20 H SARS-CoV-2 (PCR) Detected A 08/09/23 05:26 Neutrophils # (Manual) Lymphocytes # (Manual) Metamyelocytes # (Man) Myelocytes # (Manual) D-Dimer Sodium Potassium Creatinine Glucose POC Glucose (mg/dL) 247 H Procalcitonin SARS-CoV-2 (PCR) - Diagnostic Findings Chest x-ray: image reviewed Assessment and Plan Plan: Covid 19 infection. Symptoms started approximately 10 days ago and the patient tested positive approximately week ago on an outpatient basis. The diagnosis was confirmed here in the hospital. His is admitted for the same. The patient may have a limited Covid 19 related pneumonia based on chest x-ray findings. Patient also has a mild hypoxic respiratory failure addition to various other constitutional symptoms The patient has been vaccinated 2 without any boosters. This is his first infection with Covid 19 Acute hypoxic respiratory failure currently on 2 L of oxygen by nasal cannula COPD and the patient smokes up to 2 pack of cigarettes a day Shortness of breath secondary to above Generalized weakness and lethargy and fatigue along with some altered level of consciousness, with a negative CAT scan of the brain and the patient is improving. D-dimer is at low Diabetes mellitus type 2 Hypothyroidism Hypertension Hyperlipidemia Plan Titrate oxygen flow to maintain saturation above 90% Start the patient on Decadron 6 mg IV every 24 hours IV fluids LDH level is low Pro calcitonin level is nonspecifically elevated and this will be monitored Resume all medications Lovenox for DVT prophylaxis We'll continue to follow.
[2023-08-09] MEDS: NICOTINE 21MG/24HR PATCH TRANSDERM SCH (14:02)
[2023-08-09] MEDS: guaiFENesin 600 MG TABLET.ER PO SCH ×3 (14:02→21:02)
[2023-08-09] MEDS: ALBUTEROL HFA INHALER INHALATION SCH ×2 (15:25→21:16)
[2023-08-09 16:53] LABS: Glucose,Whole Blood 272 mg/dL (70-110)
[2023-08-09 20:30] LABS: Glucose,Whole Blood 296 mg/dL (70-110)
[2023-08-09] MEDS: CITALOPRAM HYDROBROMIDE 20 MG TAB PO SCH (21:02)
[2023-08-09] MEDS: INSULIN DETEMIR (LEVEMIR) 100 UNIT/ML SYR SQ SCH (21:02)
[2023-08-09] MEDS: PIOGLITAZONE 30 MG TAB PO SCH (21:02)
[2023-08-09] MEDS: ASCORBIC ACID 500 MG TAB PO SCH (21:02)
[2023-08-09] MEDS: ATORVASTATIN 20 MG TAB PO SCH (21:03)
[2023-08-09] MEDS: dexAMETHasone 2 MG TAB PO SCH (21:03)
[2023-08-09] MEDS: SODIUM CHLORIDE 0.9% 1,000 ML IV SCH (21:06)
[2023-08-09] MEDS: SYMBICORT 160-4.5 MCG INHALER INHALATION SCH (21:17)
[2023-08-10] MEDS: ALBUTEROL HFA INHALER INHALATION SCH ×7 (00:19→23:36)
[2023-08-10] MEDS: ACETAMINOPHEN TAB 325 MG TAB PO PRN ×2 (01:33→08:13)
[2023-08-10 05:59] LABS: Glucose,Whole Blood 185 mg/dL (70-110)
[2023-08-10] MEDS: INSULIN ASPART (NovoLOG) 100 UNIT/ML VIAL SQ SCH ×4 (06:46→22:06)
[2023-08-10] MEDS: FAMOTIDINE 20 MG TAB PO SCH ×2 (08:12→22:10)
[2023-08-10] MEDS: LORATADINE 10 MG TAB PO SCH (08:12)
[2023-08-10] MEDS: ENOXAPARIN 40 MG/0.4 ML SYRINGE SQ SCH (08:12)
[2023-08-10] MEDS: dexAMETHasone 2 MG TAB PO SCH ×2 (08:12→22:08)
[2023-08-10] MEDS: ASPIRIN 325 MG TAB PO SCH (08:12)
[2023-08-10] MEDS: guaiFENesin 600 MG TABLET.ER PO SCH ×4 (08:12→22:06)
[2023-08-10] MEDS: metFORMIN 500 MG TAB PO SCH ×2 (08:12→22:08)
[2023-08-10] MEDS: MULTIVITAMINS, THERA 1 EACH TAB PO SCH (08:12)
[2023-08-10] MEDS: CHOLECALCIFEROL 125 MCG (5000 IU) TABLET PO SCH (08:12)
[2023-08-10] MEDS: carvediloL 12.5 MG TAB PO SCH ×2 (08:12→17:06)
[2023-08-10] MEDS: PANTOPRAZOLE 40 MG TABLET PO SCH (08:12)
[2023-08-10] MEDS: MELOXICAM 7.5 MG TAB PO SCH (08:13)
[2023-08-10] MEDS: NICOTINE 21MG/24HR PATCH TRANSDERM SCH (08:13)
[2023-08-10] MEDS: LEVOTHYROXINE 137 MCG TAB PO SCH (08:14)
[2023-08-10] MEDS: buPROPion XL 150 MG TAB.ER.24H PO SCH ×2 (08:14→22:07)
[2023-08-10] MEDS: GLIMEPIRIDE 4 MG TAB PO SCH (08:14)
[2023-08-10] MEDS: SYMBICORT 160-4.5 MCG INHALER INHALATION SCH ×2 (08:26→21:41)
[2023-08-10] MEDS: IPRATROPIUM 0.5 MG/2.5 ML NEBU INHALATION SCH ×3 (08:27→15:32)
[2023-08-10] MEDS: SODIUM CHLORIDE 0.9% 1,000 ML IV SCH (10:32)
[2023-08-10 11:37] LABS: Glucose,Whole Blood 222 mg/dL (70-110)
[2023-08-10] MEDS ORDERED: LACTULOSE 20 GM/30 ML CUP PO ONE (12:46)
--- NOTE | 2023-08-10 13:12 | P.PN ---
Subjective Progress Note Date: 08/10/23 Patient is 68-year-old male presents emergency department for altered mental status. Patient has been positive for COVID-19 for 7 days. He's been sick and weak for the last 2 weeks. Currently patient is brought in by EMS after his family member called for concerns of altered mental status. . The patient been feeling lethargic, weak, and becoming more incoherent and at the same time feeling tired and fatigued without any stamina or energy. His oral intake has also been diminished and the patient was complaining of some shortness of breath in addition. He has not been infected with Covid 19 in the past and this is current infection. His symptoms started approximately 10 days ago and the pat ient tested positive approximately a week ago based on an outpatient. He has not received any treatment on outpatient basis. Patient is vaccinated for COVID-19 2 and the patient not been infected in the past.. Complains of total body pain, cough, shortness of breath.. The patient's is admitted for the same and currently she is hospitalized for Covid 19 infection and pneumonia. He has no focal neurological deficit and a CAT scan of the brain was negative. The chest x-ray showed no acute abnormalities. He has COPD. There is some mild increased interstitial markings bilaterally which could reflect bronchitis or limited Covid 19 related pneumonia changes. The patient is currently on 2 L of oxygen nasal cannula with pulse ox of 93% patient is running a low-grade fever. Also, his echoes at 10.1 with a hemoglobin of 14.6 and a platelet count of 146. D-dimer is at 0.6. Sodium is at 134 with a potassium level of 3.1. BUN is 16 with a creatinine of 0.4. Pro-calcitonin level is at 1.2. TSH 0.8. LDH level is at 117. On today's evaluation of 08/10/2023, seeing the patient for a follow-up. Slightly improved compared to yesterday. Still having issues with lethargy and weakness. No altered mentation at this point in time. No nausea and emesis. He has a congested cough as the patient has advanced COPD and is a chronic smoker. He remains on Decadron. Some elevation of blood sugar is noted and the patient's HbA1c level is at 9.6 indicating portal blood sugar control. The d- dimer is at 0.6. TSH 0.8. Pro-calcitonin level was interestingly elevated at 1.2. No clear indication for an underlying bacterial infection at this point in time. The patient remains on Lovenox for DVT prophylaxis. Home medications of his COPD remains on Symbicort and albuterol HFA [id number]. Objective - Vital Signs Vital signs: Vital Signs Temp 99.7 F H 08/10/23 07:45 Pulse 98 08/10/23 07:45 Resp 19 08/10/23 07:45 BP 143/86 08/10/23 07:45 Pulse Ox 93 L 08/10/23 08:28 FiO2 Intake & Output 08/09/23 08/10/23 08/10/23 18:59 06:59 18:59 Other: Voiding Method Toilet # Voids 4 2 - Exam GENERAL: BMI 29.5, reclining in bed awake tired short of breath. The patient is currently on 2 L of O2 nasal cannula Head exam was generally normal. There was no scleral icterus or corneal arcus. Mucous membranes were moist. EYES: Pupils equal. Conjunctiva normal. HEENT: External appearance of nose and ears normal, oral cavity grossly normal. NECK: JVD not raised; masses not palpable. HEART: First and second heart sounds are normal; no edema. LUNGS: Respiratory rate increased; diminished breath sounds, prolonged expira tion and wheezing coarse crackles. ABDOMEN: Soft, nontender, liver spleen not palpable, no masses palpable. PSYCH: Alert and oriented x3; mood and affect anxiousl. MUSCULOSKELETAL:No Clubbing/cyanosis;muscles-grossly intact NEUROLOGICAL: Cranial nerves grossly intact; no facial asymmetry, power and sensation grossly intact. LYMPHATICS: No lymph nodes palpable in the axilla and neck Examination of the skin revealed no evidence of significant rashes, suspicious appearing nevi or other concerning lesions. - Labs CBC & Chem 7: 08/08/23 20:03 08/08/23 20:03 Labs: Abnormal Lab Results - Last 24 Hours (Table) 08/09/23 08/09/23 08/09/23 Range/Units 11:28 11:46 16:51 POC Glucose (mg/dL) 234 H 272 H (70-110) mg/dL Hemoglobin A1c (<=6.0) % Lactate Dehydrogenase 117 L (120-246) U/L 08/09/23 08/10/23 08/10/23 Range/Units 20:28 04:49 05:57 POC Glucose (mg/dL) 296 H 185 H (70-110) mg/dL Hemoglobin A1c 9.6 H (<=6.0) % Lactate Dehydrogenase (120-246) U/L Assessment and Plan Plan: Covid 19 infection. Symptoms started approximately 10 days ago and the patient tested positive approximately week ago on an outpatient basis. The diagnosis was confirmed here in the hospital. His is admitted for the same. The patient may have a limited Covid 19 related pneumonia based on chest x-ray findings. Patient also has a mild hypoxic respiratory failure addition to various other constitutional symptoms The patient has been vaccinated 2 without any boosters. This is his first infection with Covid 19 Acute hypoxic respiratory failure currently on 2 L of oxygen by nasal cannula COPD and the patient smokes up to 2 pack of cigarettes a day with a component of COPD exacerbation Shortness of breath secondary to above Generalized weakness and lethargy and fatigue along with some altered level of consciousness, with a negative CAT scan of the brain and the patient is improving. D-dimer is at low Diabetes mellitus type 2, poorly controlled and outpatient basis with an elevated HbA1c level and the patient is currently on Levemir insulin 24 units and a sliding scale coverage. Hypothyroidism Hypertension Hyperlipidemia Plan Clinically improved compared to yesterday Titrate oxygen flow to maintain saturation above 90% Start the patient on Decadron 6 mg IV every 24 hours IV fluids LDH level is low Pro calcitonin level is nonspecifically elevated and this will be monitored, suggested beating on the pro calcitonin level in a.m. Resume all medications Lovenox for DVT prophylaxis We'll continue to follow.
[2023-08-10] MEDS ORDERED: POTASSIUM CHLORIDE ER 20 MEQ TAB.ER PO STA (14:55)
--- NOTE | 2023-08-10 14:56 | P.PN ---
Progress Note - Text Progress Note Date: 08/10/23 Chief Complaint: Short of breath cough This is a 68-year-old patient follows Dr. Miller. Chronic stable medical conditions include CAD with stent in 2011, diabetes, GERD, hypertension, hyperlipidemia, prostatitis, hypothyroid,. Patient is a smoker. Patient tested positive for COVID 6 days ago. Started getting symptoms or shortness of breath cough or sputum that is not able to expectorate. In the last 2 days symptoms became much worse. Fever. Chills. Bodyaches. Her appetite for last 3 days. Admitted for the same. Patient's pulse ox was down to 90% on room air. Patient's is also admitted to the hospital COVID. Patient also diagnosed with COVID. August 10: Some improvement in breathing. Did eating better. Transferred to the bedside. Some cough and sputum. No fever. Tired. Slight blood in the sputum. Last BM was 3 days ago. Lactulose ordered. Active Medications Acetaminophen (Acetaminophen Tab 325 Mg Tab) 650 mg PO Q6HR PRN PRN Reason: Fever and/ or Pain Last Admin: 08/10/23 08:13 Dose: 650 mg Albuterol Sulfate (Albuterol Hfa Inhaler) 6 puff INHALATION RT-Q4H [facility] Last Admin: 08/10/23 11:35 Dose: 6 puff Albuterol Sulfate (Albuterol Hfa Inhaler) 2 puff INHALATION RT-QID PRN PRN Reason: Shortness Of Breath Ascorbic Acid (Ascorbic Acid 500 Mg Tab) 1,000 mg PO [facility] Last Admin: 08/09/23 21:02 Dose: 1,000 mg Aspirin (Aspirin 325 Mg Tab) 325 mg PO W/BRKFST [facility] Last Admin: 08/10/23 08:12 Dose: 325 mg Atorvastatin Calcium (Atorvastatin 20 Mg Tab) 20 mg PO [facility] Last Admin: 08/09/23 21:03 Dose: 20 mg Budesonide/Formoterol Fumarate (Symbicort 160-4.5 Mcg Inhaler) 2 puff INHALATION RT-BID [facility] Last Admin: 08/10/23 08:26 Dose: 2 puff Bupropion HCl (Bupropion Xl 150 Mg Tab.Er.24h) 150 mg PO BID [facility] Last Admin: 08/10/23 08:14 Dose: 150 mg Carvedilol (Carvedilol 12.5 Mg Tab) 12.5 mg PO AC-BID [facility] Last Admin: 08/10/23 08:12 Dose: 12.5 mg Cholecalciferol (Cholecalciferol 125 Mcg (5000 Iu) Tablet) 125 mcg PO AC-BRKFST [facility] Last Admin: 08/10/23 08:12 Dose: 125 mcg Citalopram Hydrobromide (Citalopram Hydrobromide 20 Mg Tab) 20 mg PO [facility] Last Admin: 08/09/23 21:02 Dose: 20 mg Dexamethasone (Dexamethasone 2 Mg Tab) 6 mg PO BID [facility] Last Admin: 08/10/23 08:12 Dose: 6 mg Dextrose/Water (Dextrose 50% Syringe 50 Ml) 25 ml IVP PER PROTOCOL PRN; Protocol PRN Reason: Hypoglycemia Dextrose/Water (Dextrose 50% Syringe 50 Ml) 50 ml IVP PER PROTOCOL PRN; Protocol PRN Reason: Hypoglycemia Enoxaparin Sodium (Enoxaparin 40 Mg/0.4 Ml Syringe) 40 mg SQ DAILY [facility] Last Admin: 08/10/23 08:12 Dose: 40 mg Famotidine (Famotidine 20 Mg Tab) 20 mg PO BID [facility] Last Admin: 08/10/23 08:12 Dose: 20 mg Glimepiride (Glimepiride 4 Mg Tab) 4 mg PO W/BRKFST [facility] Last Admin: 08/10/23 08:14 Dose: 4 mg Guaifenesin (Guaifenesin 600 Mg Tablet.Er) 600 mg PO QID [facility] Last Admin: 08/10/23 12:02 Dose: 600 mg Sodium Chloride (Saline 0.9%) 1,000 mls @ 75 mls/hr IV .[id number] [facility] Last Admin: 08/10/23 10:32 Dose: Not Given Insulin Aspart (Insulin Aspart (Novolog) 100 Unit/Ml Vial) 0 unit SQ [facility]; Protocol Last Admin: 08/10/23 12:02 Dose: 4 unit Insulin Detemir (Insulin Detemir (Levemir) 100 Unit/Ml Syr) 24 unit SQ [facility] Last Admin: 08/09/23 21:02 Dose: 24 unit Ipratropium [place] (Ipratropium 0.5 Mg/2.5 Ml Nebu) 0.5 mg INHALATION RT-QID [facility] Last Admin: 08/10/23 11:35 Dose: Not Given Levothyroxine Sodium (Levothyroxine 137 Mcg Tab) 137 mcg PO -BRKFST [facility] Last Admin: 08/10/23 08:14 Dose: 137 mcg Loratadine (Loratadine 10 Mg Tab) 10 mg PO -BRKFST [facility] Last Admin: 08/10/23 08:12 Dose: 10 mg Meloxicam (Meloxicam 7.5 Mg Tab) 15 mg PO AC-KFST [facility] Last Admin: 08/10/23 08:13 Dose: 15 mg Metformin HCl (Metformin 500 Mg Tab) 1,000 mg PO BID [facility] Last Admin: 08/10/23 08:12 Dose: 1,000 mg Multivitamins (Multivitamins, Thera 1 Each Tab) 1 each PO DAILY [facility] Last Admin: 08/10/23 08:12 Dose: 1 each Naloxone HCl (Naloxone 0.4 Mg/Ml 1 Ml Vial) 0.2 mg IV Q2M PRN PRN Reason: Opioid Reversal Nicotine (Nicotine 21mg/24hr Patch) 1 patch TRANSDERM DAILY [facility] Last Admin: 08/10/23 08:13 Dose: 1 patch Pantoprazole Sodium (Pantoprazole 40 Mg Tablet) 40 mg PO -KFST [facility] Last Admin: 08/10/23 08:12 Dose: 40 mg Pioglitazone HCl (Pioglitazone 30 Mg Tab) 30 mg PO HS [facility] Last Admin: 08/09/23 21:02 Dose: 30 mg Past medical history to include: CAD raised in 2011,'s COPD, diabetes, GERD, hypertension, hyperlipidemia, osteoarthritis, hypothyroid, Social history: . Did different jobs. Currently retired. Smokes an average of 2 packs a day for last 50 years. Alcohol rarely Physical examination: VITAL SIGNS: 99.7, 98, 19, 143 with 86, 93% on 2 L GENERAL: Sitting at the edge of the bed, looking better EYES: Pupils equal. Conjunctiva normal. HEENT: External appearance of nose and ears normal, oral cavity grossly normal. NECK: JVD not raised; masses not palpable. HEART: First and second heart sounds are normal; no edema. LUNGS: Respiratory rate increased; diminished breath sounds, prolonged expiration and some wheezing ABDOMEN: Soft, nontender, liver spleen not palpable, no masses palpable. PSYCH: Alert and oriented x3; mood and affect anxiousl. INVESTIGATIONS, reviewed in the clinical context: White count 10.1 hemoglobin 14.6 platelets 169 neutrophils 8.8 d-dimer 0.6 sodium 134 potassium 3.1 BUN 16 creatinine 0.48 blood glucose 186 Procalcitonin 1.2 TSH 0.878 COVID: PCR positive EKG tracing personally reviewed by me-sinus tachycardia. Nonspecific T-wave changes. Chest x-ray film personally reviewed by me-some scattered infiltrates Assessment and plan: -Acute COVID 19 pneumonitis causing hypoxia and sepsis Dexamethasone -Sepsis secondary to Covid 19 pneumonitis IV fluids -Acute COPD exacerbation in a current smoker Ventolin 6 puffs with spacer every 4. Symbicort -Diabetes mellitus type 2 and oral hypoglycemic Glyburide, metformin. Actos Follow Accu-Cheks and sliding scale insulin -CAD with stent Aspirin, Coreg -Chronic nicotine dependence, cigarette smoker Nicotine patch -Hyperlipidemia Lipitor 20 mg daily at bedtime -Depression Celexa 20 mg daily at bedtime -GERD Pepcid 20 mg twice a day -Hypothyroid Levothyroxine 137 g a day -Essential hypertension Continue Coreg. Hold lisinopril as blood pressure running in the lower side Slight improvement. Continue current medication treatment plan. Add incentive spirometry.
[2023-08-10 17:02] LABS: Glucose,Whole Blood 223 mg/dL (70-110)
[2023-08-10] MEDS: TIOTROPIUM 2.5 MCG INHALER INHALATION SCH (17:55)
[2023-08-10 19:36] LABS: Glucose,Whole Blood 274 mg/dL (70-110)
[2023-08-10] MEDS: INSULIN DETEMIR (LEVEMIR) 100 UNIT/ML SYR SQ SCH (22:05)
[2023-08-10] MEDS: PIOGLITAZONE 30 MG TAB PO SCH (22:06)
[2023-08-10] MEDS: ASCORBIC ACID 500 MG TAB PO SCH (22:07)
[2023-08-10] MEDS: ATORVASTATIN 20 MG TAB PO SCH (22:07)
[2023-08-10] MEDS: CITALOPRAM HYDROBROMIDE 20 MG TAB PO SCH (22:08)
[2023-08-11] MEDS: ALBUTEROL HFA INHALER INHALATION SCH ×5 (02:54→20:20)
[2023-08-11] MEDS: SODIUM CHLORIDE 0.9% 1,000 ML IV SCH ×2 (05:38→12:32)
[2023-08-11 06:20] LABS: Glucose,Whole Blood 120 mg/dL (70-110)
[2023-08-11 06:25] LABS: Basophils % (A) 0 %; Eosinophils % (A) 0 %; HCT 36.2 % (39.0-53.0); Lymphocytes # (A) 0.3 k/uL (1.0-4.8); Lymphocytes % (A) 4 %; MCH 29.1 pg (25.0-35.0); MCHC 33.1 g/dL (31.0-37.0); Mean Platelet Volume 8.5; Monocytes # (A) 0.3 k/uL (0-1.0); Monocytes % (A) 4 %; Neutrophils # (A) 6.9 k/uL (1.3-7.7); Neutrophils % (A) 92 %; Platelet Count 207 k/uL (150-450); RBC 4.12 m/uL (4.30-5.90); RDW 14.1 % (11.5-15.5); WBC 7.6 k/uL (3.8-10.6)
[2023-08-11] MEDS: INSULIN ASPART (NovoLOG) 100 UNIT/ML VIAL SQ SCH ×4 (06:30→21:39)
[2023-08-11 06:36] LABS: ALT 19 U/L (4-49); AST 22 U/L (17-59); African American GFR (CKD) >90 (>60 ml/min/1.73 sqM); Albumin 2.5 g/dL (3.5-5.0); Albumin/Globulin Ratio 0.9; Alkaline Phosphatase 101 U/L (38-126); Anion Gap 7 mmol/L; Blood Urea Nitrogen 24 mg/dL (9-20); Calcium 9.2 mg/dL (8.4-10.2); Carbon Dioxide 27 mmol/L (22-30); Chloride 102 mmol/L (98-107); Globulin 2.7 g/dL; Glucose 108 mg/dL (74-99); Non-African American GFR(CKD) >90 (>60 ml/min/1.73 sqM); Potassium 4.2 mmol/L (3.5-5.1); Sodium 136 mmol/L (137-145); Total Bilirubin 0.6 mg/dL (0.2-1.3); Total Protein 5.2 g/dL (6.3-8.2)
[2023-08-11] MEDS: MELOXICAM 7.5 MG TAB PO SCH (06:37)
[2023-08-11] MEDS: ASPIRIN 325 MG TAB PO SCH (06:37)
[2023-08-11] MEDS: CHOLECALCIFEROL 125 MCG (5000 IU) TABLET PO SCH (06:37)
[2023-08-11] MEDS: PANTOPRAZOLE 40 MG TABLET PO SCH (06:37)
[2023-08-11] MEDS: carvediloL 12.5 MG TAB PO SCH ×2 (06:39→17:10)
[2023-08-11] MEDS: LORATADINE 10 MG TAB PO SCH (06:39)
[2023-08-11] MEDS: GLIMEPIRIDE 4 MG TAB PO SCH (06:40)
[2023-08-11] MEDS: LEVOTHYROXINE 137 MCG TAB PO SCH (06:40)
[2023-08-11] MEDS: metFORMIN 500 MG TAB PO SCH ×3 (09:26→21:38)
[2023-08-11] MEDS: TIOTROPIUM 2.5 MCG INHALER INHALATION SCH (09:28)
[2023-08-11] MEDS: SYMBICORT 160-4.5 MCG INHALER INHALATION SCH ×2 (09:29→20:21)
[2023-08-11] MEDS: NICOTINE 21MG/24HR PATCH TRANSDERM SCH (09:33)
[2023-08-11] MEDS: ENOXAPARIN 40 MG/0.4 ML SYRINGE SQ SCH (09:34)
[2023-08-11] MEDS: guaiFENesin 600 MG TABLET.ER PO SCH ×4 (09:34→21:38)
[2023-08-11] MEDS: FAMOTIDINE 20 MG TAB PO SCH ×2 (09:34→21:38)
[2023-08-11] MEDS: MULTIVITAMINS, THERA 1 EACH TAB PO SCH (09:34)
[2023-08-11] MEDS: dexAMETHasone 2 MG TAB PO SCH (09:34)
[2023-08-11] MEDS: buPROPion XL 150 MG TAB.ER.24H PO SCH ×2 (09:40→21:38)
[2023-08-11 11:43] LABS: Glucose,Whole Blood 184 mg/dL (70-110)
[2023-08-11] MEDS: ALBUTEROL NEBULIZED 2.5 MG/3 ML INHALATION SCH ×2 (13:05→16:35)
--- NOTE | 2023-08-11 13:12 | P.PN ---
Progress Note - Text Progress Note Date: 08/11/23 Chief Complaint: Short of breath cough This is a 68-year-old patient follows Dr. Miller. Chronic stable medical conditions include CAD with stent in 2011, diabetes, GERD, hypertension, hyperlipidemia, prostatitis, hypothyroid,. Patient is a smoker. Patient tested positive for COVID 6 days ago. Started getting symptoms or shortness of breath cough or sputum that is not able to expectorate. In the last 2 days symptoms became much worse. Fever. Chills. Bodyaches. Her appetite for last 3 days. Admitted for the same. Patient's pulse ox was down to 90% on room air. Patient's is also admitted to the hospital COVID. Patient also diagnosed with COVID. August 10: Some improvement in breathing. Did eating better. Transferred to the bedside. Some cough and sputum. No fever. Tired. Slight blood in the sputum. Last BM was 3 days ago. Lactulose ordered. August 11: Still having some shortness of breath and some wheezing. Tired. Reminded the patient sit up in a chair. Use incentive spirometry. Oral intake good. [Patient's in the hospital in the ICU intubated.] Active Medications Acetaminophen (Acetaminophen Tab 325 Mg Tab) 650 mg PO Q6HR PRN PRN Reason: Fever and/ or Pain Last Admin: 08/10/23 08:13 Dose: 650 mg Albuterol Sulfate (Albuterol Hfa Inhaler) 2 puff INHALATION RT-QID PRN PRN Reason: Shortness Of Breath Last Admin: 08/11/23 13:09 Dose: 2 puff Albuterol Sulfate (Albuterol Nebulized 2.5 Mg/3 Ml) 2.5 mg INHALATION RT-Q4H [facility] Ascorbic Acid (Ascorbic Acid 500 Mg Tab) 1,000 mg PO [facility] Last Admin: 08/10/23 22:07 Dose: 1,000 mg Aspirin (Aspirin 325 Mg Tab) 325 mg PO W/BRKFST [facility] Last Admin: 08/11/23 06:37 Dose: 325 mg Atorvastatin Calcium (Atorvastatin 20 Mg Tab) 20 mg PO [facility] Last Admin: 08/10/23 22:07 Dose: 20 mg Budesonide/Formoterol Fumarate (Symbicort 160-4.5 Mcg Inhaler) 2 puff INHALATION RT-BID [facility] Last Admin: 08/11/23 09:29 Dose: 2 puff Bupropion HCl (Bupropion Xl 150 Mg Tab.Er.24h) 150 mg PO BID [facility] Last Admin: 08/11/23 09:40 Dose: 150 mg Carvedilol (Carvedilol 12.5 Mg Tab) 12.5 mg PO AC-BID [facility] Last Admin: 08/11/23 06:39 Dose: 12.5 mg Cholecalciferol (Cholecalciferol 125 Mcg (5000 Iu) Tablet) 125 mcg PO AC-BRKFST [facility] Last Admin: 08/11/23 06:37 Dose: 125 mcg Citalopram Hydrobromide (Citalopram Hydrobromide 20 Mg Tab) 20 mg PO [facility] Last Admin: 08/10/23 22:08 Dose: 20 mg Dexamethasone (Dexamethasone 2 Mg Tab) 6 mg PO DAILY [facility] Dextrose/Water (Dextrose 50% Syringe 50 Ml) 25 ml IVP PER PROTOCOL PRN; Protocol PRN Reason: Hypoglycemia Dextrose/Water (Dextrose 50% Syringe 50 Ml) 50 ml IVP PER PROTOCOL PRN; Protocol PRN Reason: Hypoglycemia Enoxaparin Sodium (Enoxaparin 40 Mg/0.4 Ml Syringe) 40 mg SQ DAILY [facility] Last Admin: 08/11/23 09:34 Dose: 40 mg Famotidine (Famotidine 20 Mg Tab) 20 mg PO BID [facility] Last Admin: 08/11/23 09:34 Dose: 20 mg Glimepiride (Glimepiride 4 Mg Tab) 4 mg PO W/BRKFST [facility] Last Admin: 08/11/23 06:40 Dose: 4 mg Guaifenesin (Guaifenesin 600 Mg Tablet.Er) 600 mg PO QID [facility] Last Admin: 08/11/23 12:34 Dose: 600 mg Sodium Chloride (Saline 0.9%) 1,000 mls @ 75 mls/hr IV .[id number] [facility] Last Admin: 08/11/23 12:32 Dose: Not Given Insulin Aspart (Insulin Aspart (Novolog) 100 Unit/Ml Vial) 0 unit SQ [facility]; Protocol Last Admin: 08/11/23 12:34 Dose: 2 unit Insulin Detemir (Insulin Detemir (Levemir) 100 Unit/Ml Syr) 24 unit SQ [facility] Last Admin: 08/10/23 22:05 Dose: 24 unit Levothyroxine Sodium (Levothyroxine 137 Mcg Tab) 137 mcg PO -[facility] Last Admin: 08/11/23 06:40 Dose: 137 mcg Loratadine (Loratadine 10 Mg Tab) [facility] Last Admin: 08/11/23 06:39 Dose: 10 mg Meloxicam (Meloxicam 7.5 Mg Tab) [facility] Last Admin: 08/11/23 06:37 Dose: 15 mg Metformin HCl (Metformin 500 Mg Tab) 1,000 mg PO BID [facility] Last Admin: 08/11/23 09:34 Dose: 1,000 mg Multivitamins (Multivitamins, Thera 1 Each Tab) 1 each PO DAILY [facility] Last Admin: 08/11/23 09:34 Dose: 1 each Naloxone HCl (Naloxone 0.4 Mg/Ml 1 Ml Vial) 0.2 mg IV Q2M PRN PRN Reason: Opioid Reversal Nicotine (Nicotine 21mg/24hr Patch) 1 patch TRANSDERM DAILY [facility] Last Admin: 08/11/23 09:33 Dose: 1 patch Pantoprazole Sodium (Pantoprazole 40 Mg Tablet) 40 mg PO -[facility] Last Admin: 08/11/23 06:37 Dose: 40 mg Pioglitazone HCl (Pioglitazone 30 Mg Tab) 30 mg PO HS [facility] Last Admin: 08/10/23 22:06 Dose: 30 mg Tiotropium [place] (Tiotropium 2.5 Mcg Inhaler) 2 puff INHALATION RT-DAILY [facility] Last Admin: 08/11/23 09:28 Dose: 2 puff Past medical history to include: CAD raised in 2011,'s COPD, diabetes, GERD, hypertension, hyperlipidemia, osteoarthritis, hypothyroid, Social history: . Did different jobs. Currently retired. Smokes an average of 2 packs a day for last 50 years. Alcohol rarely Physical examination: VITAL SIGNS: 98, 78, 17, 138/92, 96% on 2 L, 91% on room air GENERAL: Laying in bed, tired EYES: Pupils equal. Conjunctiva normal. HEENT: External appearance of nose and ears normal, oral cavity grossly normal. NECK: JVD not raised; masses not palpable. HEART: First and second heart sounds are normal; no edema. LUNGS: Respiratory rate increased; diminished breath sounds, , wheezing ABDOMEN: Soft, nontender, liver spleen not palpable, no masses palpable. PSYCH: Alert and oriented x3; mood and affect anxious INVESTIGATIONS, reviewed in the clinical context: August 11: White count 7.6 hemoglobin 12 platelets 277 potassium 4.2. 24 creatinine 0.49. Albumin 2.5 White count 10.1 hemoglobin 14.6 platelets 169 neutrophils 8.8 d-dimer 0.6 sodium 134 potassium 3.1 BUN 16 creatinine 0.48 blood glucose 186 Procalcitonin 1.2 TSH 0.878 COVID: PCR positive EKG tracing personally reviewed by me-sinus tachycardia. Nonspecific T-wave changes. Chest x-ray film personally reviewed by me-some scattered infiltrates Assessment and plan: -Acute COVID 19 pneumonitis causing hypoxia and sepsis: Slow improvement Dexamethasone -Sepsis secondary to Covid 19 pneumonitis, improving. No further fever IV fluids -Acute hypoxic respiratory failure secondary dose COVID 19 and COPD exacerbation Pulse ox 91% on 6 L -Acute COPD exacerbation in a current smoker: Slow to respond Ventolin 6 puffs with spacer every 4. Symbicort -Diabetes mellitus type 2 and oral hypoglycemic Glyburide, metformin. Actos Follow Accu-Cheks and sliding scale insulin -CAD with stent Aspirin, Coreg -Chronic nicotine dependence, cigarette smoker Nicotine patch -Hyperlipidemia Lipitor 20 mg daily at bedtime -Depression Celexa 20 mg daily at bedtime -GERD Pepcid 20 mg twice a day -Hypothyroid Levothyroxine 137 g a day -Essential hypertension Continue Coreg. Hold lisinopril as blood pressure running in the lower side Encourage incentive spirometry. Sitting up on a chair. Current medications to continue. Increase activity as tolerated.
--- NOTE | 2023-08-11 15:04 | P.PN ---
Subjective Progress Note Date: 08/11/23 Patient is 68-year-old male presents emergency department for altered mental status. Patient has been positive for COVID-19 for 7 days. He's been sick and weak for the last 2 weeks. Currently patient is brought in by EMS after his family member called for concerns of altered mental status. . The patient been feeling lethargic, weak, and becoming more incoherent and at the same time feeling tired and fatigued without any stamina or energy. His oral intake has also been diminished and the patient was complaining of some shortness of breath in addition. He has not been infected with Covid 19 in the past and this is current infection. His symptoms started approximately 10 days ago and the melinda ent tested positive approximately a week ago based on an outpatient. He has not received any treatment on outpatient basis. Patient is vaccinated for COVID-19 2 and the patient not been infected in the past.. Complains of total body pain, cough, shortness of breath.. The patient's is admitted for the same and currently she is hospitalized for Covid 19 infection and pneumonia. He has no focal neurological deficit and a CAT scan of the brain was negative. The chest x-ray showed no acute abnormalities. He has COPD. There is some mild increased interstitial markings bilaterally which could reflect bronchitis or limited Covid 19 related pneumonia changes. The patient is currently on 2 L of oxygen nasal cannula with pulse ox of 93% patient is running a low-grade fever. Also, his echoes at 10.1 with a hemoglobin of 14.6 and a platelet count of 146. D-dimer is at 0.6. Sodium is at 134 with a potassium level of 3.1. BUN is 16 with a creatinine of 0.4. Pro-calcitonin level is at 1.2. TSH 0.8. LDH level is at 117. On today's evaluation of 08/10/2023, seeing the patient for a follow-up. Slightly improved compared to yesterday. Still having issues with lethargy and weakness. No altered mentation at this point in time. No nausea and emesis. He has a congested cough as the patient has advanced COPD and is a chronic smoker. He remains on Decadron. Some elevation of blood sugar is noted and the patient's HbA1c level is at 9.6 indicating portal blood sugar control. The d- dimer is at 0.6. TSH 0.8. Pro-calcitonin level was interestingly elevated at 1.2. No clear indication for an underlying bacterial infection at this point in time. The patient remains on Lovenox for DVT prophylaxis. Home medications of his COPD remains on Symbicort and albuterol HFA [id number]. The patient is seen today 08/11/2023 in follow-up on the regular medical floor. He is currently resting comfortably in bed. Awake and alert in no acute distress. He is sitting up in bed. He is maintaining O2 saturations in the 90s on room air. His a dry nonproductive cough. White count 7.6. Hemoglobin 12.0. Platelets 207. Sodium 136. Potassium 4.2. Bicarb 27. BUN 24. Creatinine 0.49. Glucose 108. AST 22. ALT 19. He is continued on Symbicort, Spiriva, albuterol, vitamin supplements. Maintained on Decadron. Lovenox for DVT prophylaxis. NicoDerm patch in place. Objective - Vital Signs Vital signs: Vital Signs Temp 97.8 F 08/11/23 13:45 Pulse 94 08/11/23 13:45 Resp 18 08/11/23 13:45 BP 127/79 08/11/23 13:45 Pulse Ox 94 L 08/11/23 13:45 FiO2 Intake & Output 08/10/23 08/11/23 08/11/23 18:59 06:59 18:59 Weight 90.718 kg Other: # Voids 2 1 # Bowel Movements 2 - Exam GENERAL EXAM: Alert, alert 68-year-old male, on room air, comfortable in no apparent distress. HEAD: Normocephalic. EYES: Normal reaction of pupils, equal size. NOSE: Clear with pink turbinates. THROAT: No erythema or exudates. NECK: No masses, no JVD. CHEST: No chest wall deformity. LUNGS: Equal air entry with crackles in the bilateral bases. CVS: S1 and S2 normal with no audible murmur, regular rhythm. ABDOMEN: No hepatosplenomegaly, normal bowel sounds, no guarding or rigidity. SPINE: No scoliosis or deformity SKIN: No rashes CENTRAL NERVOUS SYSTEM: No focal deficits, tone is normal in all 4 extremities. EXTREMITIES: There is no peripheral edema. No clubbing, no cyanosis. Peripheral pulses are intact. - Labs CBC & Chem 7: 08/11/23 05:18 08/11/23 05:18 Labs: Abnormal Lab Results - Last 24 Hours (Table) 08/10/23 08/10/23 08/11/23 Range/Units 17:01 19:34 05:18 RBC 4.12 L (4.30-5.90) m/uL Hgb 12.0 L (13.0-17.5) gm/dL Hct 36.2 L (39.0-53.0) % Lymphocytes # 0.3 L (1.0-4.8) k/uL Sodium (137-145) mmol/L BUN (9-20) mg/dL Creatinine (0.66-1.25) mg/dL Glucose (74-99) mg/dL POC Glucose (mg/dL) 223 H 274 H (70-110) mg/dL Total Protein (6.3-8.2) g/dL Albumin (3.5-5.0) g/dL 08/11/23 08/11/23 08/11/23 Range/Units 05:18 06:18 11:42 RBC (4.30-5.90) m/uL Hgb (13.0-17.5) gm/dL Hct (39.0-53.0) % Lymphocytes # (1.0-4.8) k/uL Sodium 136 L (137-145) mmol/L BUN 24 H (9-20) mg/dL Creatinine 0.49 L (0.66-1.25) mg/dL Glucose 108 H (74-99) mg/dL POC Glucose (mg/dL) 120 H 184 H (70-110) mg/dL Total Protein 5.2 L (6.3-8.2) g/dL Albumin 2.5 L (3.5-5.0) g/dL Assessment and Plan Assessment: Covid 19 infection. Symptoms started over 10 days ago and the patient tested positive over a week ago on an outpatient basis. The diagnosis was confirmed here in the hospital. His is admitted for the same. The patient may have a limited Covid 19 related pneumonia based on chest x-ray findings. Patient also has a mild hypoxic respiratory failure addition to various other constitutional symptoms. The patient has been vaccinated 2 without any boosters. This is his first infection with Covid 19 Acute hypoxic respiratory failure recovered and on room air COPD and the patient smokes up to 2 pack of cigarettes a day with a component of COPD exacerbation Generalized weakness and lethargy and fatigue along with some altered level of c onsciousness, with a negative CAT scan of the brain and the patient is improving. D-dimer is at low Diabetes mellitus type 2, poorly controlled and outpatient basis with an elevated HbA1c level and the patient is currently on Levemir insulin 24 units and a sliding scale coverage. Hypothyroidism Hypertension Hyperlipidemia Plan: The patient was seen and evaluated Labs and medications reviewed Continue bronchodilators Continue Decadron Continue Lovenox Continue vitamin supplements Increase his activity as tolerated I have personally seen and examined the patient, performed the documentation and the assessment and plan as written. Number of minutes spent on the visit: 10.
[2023-08-11 16:44] LABS: Glucose,Whole Blood 291 mg/dL (70-110)
[2023-08-11 19:14] LABS: Glucose,Whole Blood 285 mg/dL (70-110)
[2023-08-11] MEDS: ASCORBIC ACID 500 MG TAB PO SCH (21:38)
[2023-08-11] MEDS: CITALOPRAM HYDROBROMIDE 20 MG TAB PO SCH (21:38)
[2023-08-11] MEDS: ATORVASTATIN 20 MG TAB PO SCH (21:38)
[2023-08-11] MEDS: PIOGLITAZONE 30 MG TAB PO SCH (21:38)
[2023-08-11] MEDS: INSULIN DETEMIR (LEVEMIR) 100 UNIT/ML SYR SQ SCH (21:39)
[2023-08-11] MEDS: ACETAMINOPHEN TAB 325 MG TAB PO PRN (21:45)
[2023-08-12] MEDS: ALBUTEROL HFA INHALER INHALATION SCH ×7 (01:08→20:38)
[2023-08-12] MEDS: SODIUM CHLORIDE 0.9% 1,000 ML IV SCH ×2 (03:19→20:22)
[2023-08-12 06:22] LABS: Glucose,Whole Blood 59 mg/dL (70-110)
[2023-08-12 06:22] LABS: Glucose,Whole Blood 70 mg/dL (70-110)
[2023-08-12 06:37] LABS: ABG Base Excess 2.1 mmol/L; ABG HCO3 27 mmol/L (21-25); ABG Oxygen Saturation 93.8 % (94-97); ABG PCO2 44 mmHg (35-45); ABG PO2 70 mmHg (83-108); ABG TCO2 28 mmol/L (19-24); Allen Test Performed? Yes
[2023-08-12 06:50] LABS: Glucose,Whole Blood 114 mg/dL (70-110)
[2023-08-12 07:07] LABS: ALT 26 U/L (4-49); AST 29 U/L (17-59); African American GFR (CKD) >90 (>60 ml/min/1.73 sqM); Albumin 2.5 g/dL (3.5-5.0); Albumin/Globulin Ratio 0.9; Alkaline Phosphatase 103 U/L (38-126); Anion Gap 9 mmol/L; Blood Urea Nitrogen 23 mg/dL (9-20); Calcium 9.6 mg/dL (8.4-10.2); Carbon Dioxide 23 mmol/L (22-30); Chloride 103 mmol/L (98-107); Globulin 2.8 g/dL; Glucose 94 mg/dL (74-99); Magnesium 1.4 mg/dL (1.6-2.3); Non-African American GFR(CKD) >90 (>60 ml/min/1.73 sqM); Potassium 3.7 mmol/L (3.5-5.1); Sodium 135 mmol/L (137-145); Total Bilirubin 0.8 mg/dL (0.2-1.3); Total Protein 5.3 g/dL (6.3-8.2)
--- NOTE | 2023-08-12 07:34 | XR ---
EXAM: XR Chest, 1 View CLINICAL HISTORY: ITS.REASON XR Reason: Resp distress TECHNIQUE: Frontal view of the chest. COMPARISON: 10/29/18 FINDINGS: Lungs: Interval development of dense opacity in the mid to lower lung zones bilaterally. Pleural space: Blunting of the right lateral costophrenic sulcus, probable small effusion. No pneumothorax. Heart: Cardiovascular silhouette, upper limits of normal. Mediastinum: Unremarkable. Normal mediastinal contour. Bones/joints: Unremarkable. No acute fracture. Vasculature: Calcified tortuous thoracic aorta is seen. IMPRESSION: 1. Interval development of bilateral airspace disease and probable small right effusion. 2. Follow-up to clearing recommended to exclude underlying abnormality/lesion.
[2023-08-12 07:49] LABS: HCT 44.8 % (39.0-53.0); Hypochromasia Moderate; MCH 29.1 pg (25.0-35.0); MCHC 31.3 g/dL (31.0-37.0); Mean Platelet Volume 8.2; Platelet Count 276 k/uL (150-450); RBC 4.81 m/uL (4.30-5.90); RDW 14.1 % (11.5-15.5); WBC 4.2 k/uL (3.8-10.6)
[2023-08-12 07:55] LABS: MCV 93.1 fL (80.0-100.0)
[2023-08-12] MEDS: SYMBICORT 160-4.5 MCG INHALER INHALATION SCH ×2 (08:12→20:38)
[2023-08-12] MEDS: CHOLECALCIFEROL 125 MCG (5000 IU) TABLET PO SCH (08:27)
[2023-08-12] MEDS: carvediloL 12.5 MG TAB PO SCH ×2 (08:27→18:06)
[2023-08-12] MEDS: PANTOPRAZOLE 40 MG TABLET PO SCH (08:27)
[2023-08-12] MEDS: guaiFENesin 600 MG TABLET.ER PO SCH ×4 (08:27→20:21)
[2023-08-12] MEDS: MULTIVITAMINS, THERA 1 EACH TAB PO SCH (08:27)
[2023-08-12] MEDS: LORATADINE 10 MG TAB PO SCH (08:27)
[2023-08-12] MEDS: ASPIRIN 325 MG TAB PO SCH (08:27)
[2023-08-12] MEDS: FAMOTIDINE 20 MG TAB PO SCH ×2 (08:27→20:21)
[2023-08-12] MEDS: PIPERACILLIN-TAZOBACTAM 3.375 GM in SODIUM CHLORIDE 0.9% 100 ML IVPB SCH ×2 (08:28→16:00)
[2023-08-12] MEDS: ENOXAPARIN 40 MG/0.4 ML SYRINGE SQ SCH (08:28)
[2023-08-12] MEDS: NICOTINE 21MG/24HR PATCH TRANSDERM SCH (08:28)
[2023-08-12] MEDS: TIOTROPIUM 2.5 MCG INHALER INHALATION SCH (08:29)
[2023-08-12 08:38] LABS: Band Neutrophils % 14 %; Lymphocytes # (M) 0.21 k/uL (1.0-4.8); Metamyelocytes # (M) 0.13 k/uL (0); Metamyelocytes % 3 %; Myelocytes # (M) 0.04 k/uL (0); Myelocytes % 1 %; Neutrophils % (M) 79 %; Nucleated Red Blood Cells 0 /100 WBC (0-0); Total Cells Counted 200
[2023-08-12] MEDS ORDERED: FUROSEMIDE 10 MG/ML 4 ML VIAL IV STA (08:48)
[2023-08-12 09:00] LABS: Glucose,Whole Blood 58 mg/dL (70-110)
[2023-08-12] MEDS: MELOXICAM 7.5 MG TAB PO SCH (09:26)
[2023-08-12] MEDS: LEVOTHYROXINE 137 MCG TAB PO SCH (09:26)
[2023-08-12] MEDS: MAGNESIUM SULFATE-D5W PMX 1 GM in DEXTROSE/WATER 1 100ML.BAG IVPB SCH ×2 (09:31→12:15)
[2023-08-12 09:34] LABS: Glucose,Whole Blood 90 mg/dL (70-110)
[2023-08-12] MEDS: INSULIN ASPART (NovoLOG) 100 UNIT/ML VIAL SQ SCH ×4 (09:59→20:41)
[2023-08-12] MEDS ORDERED: LORazepam 2 MG/ML INJ IV PRN (10:05)
[2023-08-12 10:27] LABS: Glucose,Whole Blood 90 mg/dL (70-110)
[2023-08-12] MEDS: buPROPion XL 150 MG TAB.ER.24H PO SCH ×2 (11:05→20:41)
[2023-08-12] MEDS: dexAMETHasone 2 MG TAB PO SCH (11:05)
[2023-08-12 11:13] LABS: Glucose,Whole Blood 99 mg/dL (70-110)
[2023-08-12] MEDS: GLIMEPIRIDE 4 MG TAB PO SCH (11:20)
[2023-08-12 11:47] LABS: ABG Base Excess 3.4 mmol/L; ABG HCO3 29 mmol/L (21-25); ABG Oxygen Saturation 98.6 % (94-97); ABG PCO2 48 mmHg (35-45); ABG PH 7.38 (7.35-7.45); ABG PO2 128 mmHg (83-108); ABG TCO2 30 mmol/L (19-24); Allen Test Performed? Yes
[2023-08-12] MEDS ORDERED: SODIUM CHLORIDE 0.9% 1,000 ML IV ONE (12:14)
[2023-08-12 12:31] LABS: Glucose,Whole Blood 70 mg/dL (70-110)
[2023-08-12 13:17] LABS: Glucose,Whole Blood 78 mg/dL (70-110)
[2023-08-12 14:38] LABS: C Reactive Protein 26.7 mg/dL (<1.0)
--- NOTE | 2023-08-12 14:45 | P.PN ---
Subjective Progress Note Date: 08/12/23 Patient today was a rapid response for worsening respiratory failure ended up on a 100% nonrebreather. Had a chest x-ray done which reveals a small right-sided pleural effusion and received a dose of IV Lasix. Was transferred to the intensive care unit and was placed on a 100% FiO2 BiPAP 08/27. Noted the patient tested positive for Covid 4 days ago in the hospital but has been having symptoms for 10+ days outpatient and had a positive test outpatient as well. D- Dimer is elevated at 2.11 which is increased from 0.60 on admission. He has been started on IV zosyn empirically as well as PO decadron. Review of Systems Unable to complete PHYSICAL EXAMINATION: GENERAL: The patient is alert and oriented x3, short of breath, Well developed, well nourished. HEENT: Pupils are round and equally reacting to light. EOMI. No scleral icterus. No conjunctival pallor. Normocephalic, atraumatic. No pharyngeal erythema. No thyromegaly. CARDIOVASCULAR: S1 and S2 present. No murmurs, rubs, or gallops. PULMONARY: Diminished, bibasilar crackles ABDOMEN: Soft, nontender, nondistended, normoactive bowel sounds. No palpable organomegaly. MUSCULOSKELETAL: No joint swelling or deformity. EXTREMITIES: No cyanosis, clubbing, or pedal edema. NEUROLOGICAL: Gross neurological examination did not reveal any focal deficits. Generalized weakness. SKIN: No rashes. Assessment Acute covid 19 infection with underlying pneumonia and sepsis Acute hypoxic respiratory failure secondary to acute covid infection and COPD exacerbation COPD and mild COPD exacerbation Chronic nicotine use Diabetes Mellitus type 2 HX of coronary artery disease and prior cardiac stenting Gastroesophageal reflux disease Hypthyroidism Hypertension currently hypotensive Hyperlipidemia GI prophylaxis Protonix DVT prophylaxis Lovenox Full Code Plan Check procalcionin, LDH, CRP CT angiography ordered rule out pulmonary embolism Continue BiPAP per home care chaplain Continue oral decadron, and empiric IV zosyn Hold metformin, and levemir; recommend to continue with sliding scale inclusin Continue to hold lisinopril PT/OT Repeat labs in AM The impression and plan of care has been dictated by Sherlyn Blancas Nurse Practitioner as directed. Dr. Darrel MD I have performed a history and physical examination and medical decision making of this patient, discussed the same with the dictator, and agree with the dictators assessment and plan as written, documented as a scribe. Based on total visit time, I have performed more than 50% of this visit. Objective - Vital Signs Vital signs: Vital Signs Temp 98.3 F 08/12/23 01:20 Pulse 82 08/12/23 01:20 Resp 18 08/12/23 01:20 BP 115/72 08/12/23 01:20 Pulse Ox 94 L 08/12/23 06:38 FiO2 100 08/12/23 08:13 Intake & Output 08/11/23 08/12/23 08/12/23 18:59 06:59 18:59 Weight 90.718 kg Other: # Voids 2 1 - Labs CBC & Chem 7: 08/12/23 06:35 08/12/23 06:35 Labs: Abnormal Lab Results - Last 24 Hours (Table) 08/11/23 08/11/23 08/11/23 Range/Units 11:42 16:42 19:13 Lymphocytes # (Manual) (1.0-4.8) k/uL Metamyelocytes # (Man) (0) k/uL Myelocytes # (Manual) (0) k/uL ABG pO2 (83-108) mmHg ABG HCO3 (21-25) mmol/L ABG Total CO2 (19-24) mmol/L ABG O2 Saturation (94-97) % Sodium (137-145) mmol/L BUN (9-20) mg/dL Creatinine (0.66-1.25) mg/dL POC Glucose (mg/dL) 184 H 291 H 285 H (70-110) mg/dL Plasma Lactic Acid Ty (0.7-2.0) mmol/L Magnesium (1.6-2.3) mg/dL Total Protein (6.3-8.2) g/dL Albumin (3.5-5.0) g/dL 08/12/23 08/12/23 08/12/23 Range/Units 06:08 06:34 06:35 Lymphocytes # (Manual) 0.21 L (1.0-4.8) k/uL Metamyelocytes # (Man) 0.13 H (0) k/uL Myelocytes # (Manual) 0.04 H (0) k/uL ABG pO2 70 L (83-108) mmHg ABG HCO3 27 H (21-25) mmol/L ABG Total CO2 28 H (19-24) mmol/L ABG O2 Saturation 93.8 L (94-97) % Sodium (137-145) mmol/L BUN (9-20) mg/dL Creatinine (0.66-1.25) mg/dL POC Glucose (mg/dL) 59 L (70-110) mg/dL Plasma Lactic Acid Ty (0.7-2.0) mmol/L Magnesium (1.6-2.3) mg/dL Total Protein (6.3-8.2) g/dL Albumin (3.5-5.0) g/dL 08/12/23 08/12/23 08/12/23 Range/Units 06:35 06:35 06:49 Lymphocytes # (Manual) (1.0-4.8) k/uL Metamyelocytes # (Man) (0) k/uL Myelocytes # (Manual) (0) k/uL ABG pO2 (83-108) mmHg ABG HCO3 (21-25) mmol/L ABG Total CO2 (19-24) mmol/L ABG O2 Saturation (94-97) % Sodium 135 L (137-145) mmol/L BUN 23 H (9-20) mg/dL Creatinine 0.49 L (0.66-1.25) mg/dL POC Glucose (mg/dL) 114 H (70-110) mg/dL Plasma Lactic Acid Ty 2.4 H* (0.7-2.0) mmol/L Magnesium 1.4 L (1.6-2.3) mg/dL Total Protein 5.3 L (6.3-8.2) g/dL Albumin 2.5 L (3.5-5.0) g/dL 08/12/23 Range/Units 08:58 Lymphocytes # (Manual) (1.0-4.8) k/uL Metamyelocytes # (Man) (0) k/uL Myelocytes # (Manual) (0) k/uL ABG pO2 (83-108) mmHg ABG HCO3 (21-25) mmol/L ABG Total CO2 (19-24) mmol/L ABG O2 Saturation (94-97) % Sodium (137-145) mmol/L BUN (9-20) mg/dL Creatinine (0.66-1.25) mg/dL POC Glucose (mg/dL) 58 L (70-110) mg/dL Plasma Lactic Acid Ty (0.7-2.0) mmol/L Magnesium (1.6-2.3) mg/dL Total Protein (6.3-8.2) g/dL Albumin (3.5-5.0) g/dL Assessment and Plan Time with Patient: Less than 30
[2023-08-12] MEDS ORDERED: RX INFO: IV CONTRAST WAS GIVEN 1 EACH MISC MISCELLANE PRN (15:03)
--- NOTE | 2023-08-12 15:03 | P.PN ---
Subjective Progress Note Date: 08/12/23 Principal diagnosis: Acute COVID-19 infection/pneumonia Patient is 68-year-old male presents emergency department for altered mental status. Patient has been positive for COVID-19 for 7 days. He's been sick and weak for the last 2 weeks. Currently patient is brought in by EMS after his family member called for concerns of altered mental status. . The patient been feeling lethargic, weak, and becoming more incoherent and at the same time feeling tired and fatigued without any stamina or energy. His oral intake has also been diminished and the patient was complaining of some shortness of breath in addition. He has not been infected with Covid 19 in the past and this is current infection. His symptoms started approximately 10 days ago and the patient tested positive approximately a week ago based on an outpatient. He has not received any treatment on outpatient basis. Patient is vaccinated for COVID-19 2 and the patient not been infected in the past.. Complains of total body pain, cough, shortness of breath.. The patient's is admitted for the same and currently she is hospitalized for Covid 19 infection and pneumonia. He has no focal neurological deficit and a CAT scan of the brain was negative. The chest x-ray showed no acute abnormalities. He has COPD. There is some mild increased interstitial markings bilaterally which could reflect bronchitis or limited Covid 19 related pneumonia changes. The patient is currently on 2 L of oxygen nasal cannula with pulse ox of 93% patient is running a low-grade fever. Also, his echoes at 10.1 with a hemoglobin of 14.6 and a platelet count of 146. D-dimer is at 0.6. Sodium is at 134 with a potassium level of 3.1. BUN is 16 with a creatinine of 0.4. Pro-calcitonin level is at 1.2. TSH 0.8. LDH level is at 117. On today's evaluation of 08/10/2023, seeing the patient for a follow-up. Slightly improved compared to yesterday. Still having issues with lethargy and weakness. No altered mentation at this point in time. No nausea and emesis. He has a congested cough as the patient has advanced COPD and is a chronic smoker. He remains on Decadron. Some elevation of blood sugar is noted and the patient's HbA1c level is at 9.6 indicating portal blood sugar control. The d-di tami is at 0.6. TSH 0.8. Pro-calcitonin level was interestingly elevated at 1.2. No clear indication for an underlying bacterial infection at this point in time. The patient remains on Lovenox for DVT prophylaxis. Home medications of his COPD remains on Symbicort and albuterol HFA [id number]. The patient is seen today 08/11/2023 in follow-up on the regular medical floor. He is currently resting comfortably in bed. Awake and alert in no acute distress. He is sitting up in bed. He is maintaining O2 saturations in the 90s on room air. His a dry nonproductive cough. White count 7.6. Hemoglobin 12.0. Platelets 207. Sodium 136. Potassium 4.2. Bicarb 27. BUN 24. Creatinine 0 .49. Glucose 108. AST 22. ALT 19. He is continued on Symbicort, Spiriva, albuterol, vitamin supplements. Maintained on Decadron. Lovenox for DVT prophylaxis. NicoDerm patch in place. Patient was reevaluated today on 08/12/70, patient had a downhill course overnight, and his oxygenation deteriorated, required placement on BiPAP, and 100% FiO2, and he had an increase in the work of breathing, hence the patient was transferred to the ICU and he remains on BiPAP //100%. Patient also had a worsening chest x-ray with worsening bilateral pneumonia right more so than left, he remains on Decadron, Lovenox, Zosyn, and he received 1 dose of Lasix 40 mg IV push but no significant improvement. And no significant urine output after the Lasix given. His IV fluid is 0.9 at 75 mL per hour, pro-calcitonin is elevated at 1.2. D-dimer is up to 2.11, and I'm recommending a CT angiogram of the chest on this patient. Follow-up ABG on BiPAP showed a pO2 of 128 pCO2 48 pH of 7.38. Considering his pro-calcitonin, patient is not a candidate for Baricitinib, and he is already out of the therapeutic window to start on Remdesivir. Considering his overall pulmonary status is marginal, I prefer to keep a close watch in the ICU. Objective - Vital Signs Vital signs: Vital Signs Temp 99.8 F H 08/12/23 08:00 Pulse 82 08/12/23 14:00 Resp 16 08/12/23 14:00 BP 88/62 08/12/23 14:00 Pulse Ox 95 08/12/23 14:00 FiO2 90 08/12/23 14:00 Intake & Output 08/11/23 08/12/23 08/12/23 18:59 06:59 18:59 Intake Total 1400 Output Total 280 Balance 1120 Weight 90.718 kg Intake: IV 100 .9NS 100 Intake, IV Titration 1300 Amount Magnesium Sulfate-D5w Pmx 200 1 gm In Dextrose/Water 1 100ml.bag @ 100 mls/hr IVPB Q1H [facility] Rx#: [id number] Piperacillin-Tazobactam 3 100 .375 gm In Sodium Chloride 0.9% 100 ml @ 25 mls/hr IVPB Q8HR [facility] Rx# :[id number] Sodium Chloride 0.9% 1, 1000 000 ml @ 999 mls/hr IV . Q1H1M [facility] Rx#:[id number] Output: Urine 280 Other: # Voids 2 1 # Bowel Movements 1 - Exam GENERAL EXAM: Revealed a 68-year-old white male, on BiPAP, seems to be relatively comfortable he is on 100% FiO2. HEAD: Normocephalic. EYES: Normal reaction of pupils, equal size. NOSE: Clear with pink turbinates. THROAT: No erythema or exudates. NECK: No masses, no JVD. CHEST: No chest wall deformity. LUNGS: Crackles persist bilaterally. CVS: S1 and S2 normal with no audible murmur, regular rhythm. ABDOMEN: No hepatosplenomegaly, normal bowel sounds, no guarding or rigidity. SKIN: No rashes CENTRAL NERVOUS SYSTEM: Alert and oriented 3 focal deficit EXTREMITIES: No clubbing, no edema, no cyanosis - Labs CBC & Chem 7: 08/12/23 06:35 08/12/23 06:35 Labs: Abnormal Lab Results - Last 24 Hours (Table) 08/11/23 08/11/23 08/12/23 Range/Units 16:42 19:13 06:08 Lymphocytes # (Manual) (1.0-4.8) k/uL Metamyelocytes # (Man) (0) k/uL Myelocytes # (Manual) (0) k/uL D-Dimer (<0.60) mg/L FEU ABG pCO2 (35-45) mmHg ABG pO2 (83-108) mmHg ABG HCO3 (21-25) mmol/L ABG Total CO2 (19-24) mmol/L ABG O2 Saturation (94-97) % Sodium (137-145) mmol/L BUN (9-20) mg/dL Creatinine (0.66-1.25) mg/dL POC Glucose (mg/dL) 291 H 285 H 59 L (70-110) mg/dL Plasma Lactic Acid Ty (0.7-2.0) mmol/L Magnesium (1.6-2.3) mg/dL C-Reactive Protein (<1.0) mg/dL Total Protein (6.3-8.2) g/dL Albumin (3.5-5.0) g/dL 08/12/23 08/12/23 08/12/23 Range/Units 06:34 06:35 06:35 Lymphocytes # (Manual) 0.21 L (1.0-4.8) k/uL Metamyelocytes # (Man) 0.13 H (0) k/uL Myelocytes # (Manual) 0.04 H (0) k/uL D-Dimer (<0.60) mg/L FEU ABG pCO2 (35-45) mmHg ABG pO2 70 L (83-108) mmHg ABG HCO3 27 H (21-25) mmol/L ABG Total CO2 28 H (19-24) mmol/L ABG O2 Saturation 93.8 L (94-97) % Sodium 135 L (137-145) mmol/L BUN 23 H (9-20) mg/dL Creatinine 0.49 L (0.66-1.25) mg/dL POC Glucose (mg/dL) (70-110) mg/dL Plasma Lactic Acid Ty (0.7-2.0) mmol/L Magnesium 1.4 L (1.6-2.3) mg/dL C-Reactive Protein (<1.0) mg/dL Total Protein 5.3 L (6.3-8.2) g/dL Albumin 2.5 L (3.5-5.0) g/dL 08/12/23 08/12/23 08/12/23 Range/Units 06:35 06:35 06:49 Lymphocytes # (Manual) (1.0-4.8) k/uL Metamyelocytes # (Man) (0) k/uL Myelocytes # (Manual) (0) k/uL D-Dimer (<0.60) mg/L FEU ABG pCO2 (35-45) mmHg ABG pO2 (83-108) mmHg ABG HCO3 (21-25) mmol/L ABG Total CO2 (19-24) mmol/L ABG O2 Saturation (94-97) % Sodium (137-145) mmol/L BUN (9-20) mg/dL Creatinine (0.66-1.25) mg/dL POC Glucose (mg/dL) 114 H (70-110) mg/dL Plasma Lactic Acid Ty 2.4 H* (0.7-2.0) mmol/L Magnesium (1.6-2.3) mg/dL C-Reactive Protein 26.7 H (<1.0) mg/dL Total Protein (6.3-8.2) g/dL Albumin (3.5-5.0) g/dL 08/12/23 08/12/23 08/12/23 Range/Units 08:58 10:04 11:36 Lymphocytes # (Manual) (1.0-4.8) k/uL Metamyelocytes # (Man) (0) k/uL Myelocytes # (Manual) (0) k/uL D-Dimer 2.11 H (<0.60) mg/L FEU ABG pCO2 48 H (35-45) mmHg ABG pO2 128 H (83-108) mmHg ABG HCO3 29 H (21-25) mmol/L ABG Total CO2 30 H (19-24) mmol/L ABG O2 Saturation 98.6 H (94-97) % Sodium (137-145) mmol/L BUN (9-20) mg/dL Creatinine (0.66-1.25) mg/dL POC Glucose (mg/dL) 58 L (70-110) mg/dL Plasma Lactic Acid Ty (0.7-2.0) mmol/L Magnesium (1.6-2.3) mg/dL C-Reactive Protein (<1.0) mg/dL Total Protein (6.3-8.2) g/dL Albumin (3.5-5.0) g/dL Assessment and Plan Assessment: Impression: Acute hypoxic respiratory failure Acute COVID-19 infection, possible pneumonia Possible superimposed bacterial pneumonia Underlying COPD based on his clinical history Type 2 diabetes Hypothyroidism Hypertension Dyslipidemia Recommendations: Continue to monitor in the ICU Continue Decadron Continue Lovenox Continue COVID-19 cocktail Not a candidate for Baricitinib and not a candidate for Remdesivir. Consider CT angiogram of the chest since his d-dimer is elevated although clinically I truly doubt pulmonary embolism. Will continue to follow. Prognosis is relatively guarded Time with Patient: Less than 30
[2023-08-12 16:10] LABS: Glucose,Whole Blood 78 mg/dL (70-110)
--- NOTE | 2023-08-12 17:05 | CT ---
EXAMINATION TYPE: CT chest angio for PE CT DLP: 627.4 mGycm, Automated exposure control for dose reduction was used. DATE OF EXAM: 08/12/2023 4:53 PM COMPARISON: CT chest 07/16/2023. CLINICAL INDICATION:Male, 68 years old with history of r/o PE; Rule out PE, Covid + TECHNIQUE/CONTRAST: CTA scan of the thorax is performed with IV Contrast, patient injected with 100 mL of Isovue 370, MIP images are created and reviewed these are created on a separate workstation.. FINDINGS: Pulmonary Artery: There is no evidence for a filling defect within the pulmonary vasculature to sugge st acute pulmonary embolism. The pulmonary artery is of normal size. Lungs/Pleura: Airspace opacities on the right hilum. There is consolidation changes of the lower lung s. No evidence of focal consolidation, pleural effusion or pneumothorax. Airway: Large airways are patent. Heart: There are is mildly enlarged for size. There is coronary artery atherosclerosis. Vasculature: No evidence of aortic aneurysm. Mediastinum: No gross evidence of adenopathy. Scattered prominent lymph nodes throughout the mediasti num are new likely reactive to ongoing infectious process. Musculoskeletal: No acute osseous abnormalities Soft Tissues: Unremarkable. Lower neck: No significant findings. Upper Abdomen: No significant findings. IMPRESSION: 1. No evidence of pulmonary embolism. 2. Bibasilar and right perihilar airspace consolidation. Findings likely represent pneumonia. Finding s are new from prior. There is lymphadenopathy throughout the mediastinum likely secondary to infecti ous process
[2023-08-12] MEDS: ASCORBIC ACID 500 MG TAB PO SCH (20:21)
[2023-08-12] MEDS: CITALOPRAM HYDROBROMIDE 20 MG TAB PO SCH (20:21)
[2023-08-12] MEDS: ATORVASTATIN 20 MG TAB PO SCH (20:21)
[2023-08-12 20:26] LABS: Glucose,Whole Blood 91 mg/dL (70-110)
[2023-08-13] MEDS: PIPERACILLIN-TAZOBACTAM 3.375 GM in SODIUM CHLORIDE 0.9% 100 ML IVPB SCH ×3 (00:01→15:58)
[2023-08-13 00:05] LABS: Glucose,Whole Blood 123 mg/dL (70-110)
[2023-08-13] MEDS: ALBUTEROL HFA INHALER INHALATION SCH ×7 (00:16→23:36)
[2023-08-13] MEDS: SODIUM CHLORIDE 0.9% 1,000 ML IV SCH ×2 (06:41→12:23)
[2023-08-13 06:52] LABS: Glucose,Whole Blood 159 mg/dL (70-110)
[2023-08-13] MEDS: carvediloL 12.5 MG TAB PO SCH ×2 (06:57→17:05)
[2023-08-13] MEDS: LORATADINE 10 MG TAB PO SCH (06:57)
[2023-08-13] MEDS: ASPIRIN 325 MG TAB PO SCH (06:57)
[2023-08-13] MEDS: PANTOPRAZOLE 40 MG TABLET PO SCH (06:57)
[2023-08-13] MEDS: CHOLECALCIFEROL 125 MCG (5000 IU) TABLET PO SCH (06:57)
[2023-08-13] MEDS: MELOXICAM 7.5 MG TAB PO SCH (06:58)
[2023-08-13] MEDS: INSULIN ASPART (NovoLOG) 100 UNIT/ML VIAL SQ SCH ×4 (06:59→21:27)
--- NOTE | 2023-08-13 07:54 | XR ---
EXAMINATION TYPE: XR chest 1V portable DATE OF EXAM: 08/13/2023 Comparison: 08/12/2023 Clinical History: 68-year-old male ICU follow-up, assess lungs Findings: Ongoing extensive consolidation in the right lower lung and retrocardiac region. Heart upper limits o f normal in size. Upper lungs remain clear. Impression: Ongoing extensive bilateral lower lung airspace disease, right greater than left.
[2023-08-13 07:59] LABS: ALT 26 U/L (4-49); AST 39 U/L (17-59); African American GFR (CKD) >90 (>60 ml/min/1.73 sqM); Albumin 2.1 g/dL (3.5-5.0); Alkaline Phosphatase 97 U/L (38-126); Anion Gap 11 mmol/L; Blood Urea Nitrogen 30 mg/dL (9-20); Calcium 9.1 mg/dL (8.4-10.2); Carbon Dioxide 24 mmol/L (22-30); Chloride 102 mmol/L (98-107); Glucose 149 mg/dL (74-99); Non-African American GFR(CKD) >90 (>60 ml/min/1.73 sqM); Potassium 3.9 mmol/L (3.5-5.1); Sodium 137 mmol/L (137-145); Total Bilirubin 0.8 mg/dL (0.2-1.3); Total Protein 4.5 g/dL (6.3-8.2)
[2023-08-13] MEDS: MULTIVITAMINS, THERA 1 EACH TAB PO SCH (08:14)
[2023-08-13] MEDS: guaiFENesin 600 MG TABLET.ER PO SCH ×4 (08:14→21:27)
[2023-08-13] MEDS: ENOXAPARIN 40 MG/0.4 ML SYRINGE SQ SCH (08:14)
[2023-08-13] MEDS: buPROPion XL 150 MG TAB.ER.24H PO SCH ×2 (08:14→21:28)
[2023-08-13] MEDS: NICOTINE 21MG/24HR PATCH TRANSDERM SCH (08:14)
[2023-08-13] MEDS: LEVOTHYROXINE 137 MCG TAB PO SCH (08:14)
[2023-08-13] MEDS: dexAMETHasone 2 MG TAB PO SCH (08:15)
[2023-08-13 08:30] LABS: HGB 11.7 gm/dL (13.0-17.5); MCH 28.7 pg (25.0-35.0); MCHC 31.7 g/dL (31.0-37.0); MCV 90.5 fL (80.0-100.0); Mean Platelet Volume 9.7; Platelet Count 230 k/uL (150-450); RBC 4.09 m/uL (4.30-5.90); RDW 14.5 % (11.5-15.5); WBC 10.9 k/uL (3.8-10.6)
[2023-08-13] MEDS: SYMBICORT 160-4.5 MCG INHALER INHALATION SCH ×2 (08:48→20:24)
[2023-08-13] MEDS: TIOTROPIUM 2.5 MCG INHALER INHALATION SCH (08:49)
[2023-08-13] MEDS: ZINC SULFATE 220 MG CAP PO SCH (11:44)
[2023-08-13 12:03] LABS: Glucose,Whole Blood 183 mg/dL (70-110)
--- NOTE | 2023-08-13 12:53 | P.PN ---
Subjective Progress Note Date: 08/13/23 Principal diagnosis: Acute COVID-19 infection/pneumonia Patient is 68-year-old male presents emergency department for altered mental status. Patient has been positive for COVID-19 for 7 days. He's been sick and weak for the last 2 weeks. Currently patient is brought in by EMS after his family member called for concerns of altered mental status. . The patient been feeling lethargic, weak, and becoming more incoherent and at the same time feeling tired and fatigued without any stamina or energy. His oral intake has also been diminished and the patient was complaining of some shortness of breath in addition. He has not been infected with Covid 19 in the past and this is current infection. His symptoms started approximately 10 days ago and the patient tested positive approximately a week ago based on an outpatient. He has not received any treatment on outpatient basis. Patient is vaccinated for COVID-19 2 and the patient not been infected in the past.. Complains of total body pain, cough, shortness of breath.. The patient's is admitted for the same and currently she is hospitalized for Covid 19 infection and pneumonia. He has no focal neurological deficit and a CAT scan of the brain was negative. The chest x-ray showed no acute abnormalities. He has COPD. There is some mild increased interstitial markings bilaterally which could reflect bronchitis or limited Covid 19 related pneumonia changes. The patient is currently on 2 L of oxygen nasal cannula with pulse ox of 93% patient is running a low-grade fever. Also, his echoes at 10.1 with a hemoglobin of 14.6 and a platelet count of 146. D-dimer is at 0.6. Sodium is at 134 with a potassium level of 3.1. BUN is 16 with a creatinine of 0.4. Pro-calcitonin level is at 1.2. TSH 0.8. LDH level is at 117. On today's evaluation of 08/10/2023, seeing the patient for a follow-up. Slightly improved compared to yesterday. Still having issues with lethargy and weakness. No altered mentation at this point in time. No nausea and emesis. He has a congested cough as the patient has advanced COPD and is a chronic smoker. He remains on Decadron. Some elevation of blood sugar is noted and the patient's HbA1c level is at 9.6 indicating portal blood sugar control. The d-di tami is at 0.6. TSH 0.8. Pro-calcitonin level was interestingly elevated at 1.2. No clear indication for an underlying bacterial infection at this point in time. The patient remains on Lovenox for DVT prophylaxis. Home medications of his COPD remains on Symbicort and albuterol HFA [id number]. The patient is seen today 08/11/2023 in follow-up on the regular medical floor. He is currently resting comfortably in bed. Awake and alert in no acute distress. He is sitting up in bed. He is maintaining O2 saturations in the 90s on room air. His a dry nonproductive cough. White count 7.6. Hemoglobin 12.0. Platelets 207. Sodium 136. Potassium 4.2. Bicarb 27. BUN 24. Creatinine 0 .49. Glucose 108. AST 22. ALT 19. He is continued on Symbicort, Spiriva, albuterol, vitamin supplements. Maintained on Decadron. Lovenox for DVT prophylaxis. NicoDerm patch in place. Patient was reevaluated today on 08/12/70, patient had a downhill course overnight, and his oxygenation deteriorated, required placement on BiPAP, and 100% FiO2, and he had an increase in the work of breathing, hence the patient was transferred to the ICU and he remains on BiPAP 08/27/100%. Patient also had a worsening chest x-ray with worsening bilateral pneumonia right more so than left, he remains on Decadron, Lovenox, Zosyn, and he received 1 dose of Lasix 40 mg IV push but no significant improvement. And no significant urine output after the Lasix given. His IV fluid is 0.9 at 75 mL per hour, pro-calcitonin is elevated at 1.2. D-dimer is up to 2.11, and I'm recommending a CT angiogram of the chest on this patient. Follow-up ABG on BiPAP showed a pO2 of 128 pCO2 48 pH of 7.38. Considering his pro-calcitonin, patient is not a candidate for Baricitinib, and he is already out of the therapeutic window to start on Remdesivir. Considering his overall pulmonary status is marginal, I prefer to keep a close watch in the ICU. Reevaluated today on 08/13/23, patient remains in the ICU, remains on BiPAP 08/27/55% and I got him down to 50%. Patient remains on Decadron, Lovenox, Zosyn, his also on the COVID-19 cocktail. Slightly better today compared to yesterday, chest x-ray and CT angiogram of the chest clearly showed extensive bilateral pneumonia and consolidation. Clinically there is slight improvement, patient is hemodynamically stable, he is on IV fluid at 75 mL/h, has good urine output. And again his hemodynamics are normal. WBC count is 10.9 hemoglobin is 11.7 basic metabolic profile is normal renal profile is normal inflammatory markers including C-reactive protein and LDH was slightly elevated with pro- calcitonin also of 0.78, C-reactive protein of 26.7, and LDH of 188 Objective - Vital Signs Vital signs: Vital Signs Temp 97.6 F 08/13/23 12:00 Pulse 85 08/13/23 12:00 Resp 22 08/13/23 12:00 BP 113/80 08/13/23 12:00 Pulse Ox 95 08/13/23 12:00 FiO2 50 08/13/23 12:00 Intake & Output 08/12/23 08/13/23 08/13/23 18:59 06:59 18:59 Intake Total 1710 925 625 Output Total 590 580 305 Balance 1120 345 320 Weight 93.1 kg Intake: IV 310 925 625 .9NS 310 825 525 Piperacillin-Tazobactam 3 100 100 .375 gm In Sodium Chloride 0.9% 100 ml @ 25 mls/hr IVPB Q8HR [facility] Rx# :[id number] Intake, IV Titration 1400 Amount Magnesium Sulfate-D5w Pmx 200 1 gm In Dextrose/Water 1 100ml.bag @ 100 mls/hr IVPB Q1H [facility] Rx#: [id number] Piperacillin-Tazobactam 3 200 .375 gm In Sodium Chloride 0.9% 100 ml @ 25 mls/hr IVPB Q8HR [facility] Rx# :[id number] Sodium Chloride 0.9% 1, 1000 000 ml @ 999 mls/hr IV . Q1H1M ONE Rx#:[id number] Output: Urine 590 580 305 Other: Voiding Method Indwelling Catheter Indwelling Catheter Indwelling Catheter # Bowel Movements 1 - Exam GENERAL EXAM: Revealed a 68-year-old white male, on BiPAP, seems to be relatively comfortable he is on 55% FiO2 12/ HEAD: Normocephalic. EYES: Normal reaction of pupils, equal size. NOSE: Clear with pink turbinates. THROAT: No erythema or exudates. NECK: No masses, no JVD. CHEST: No chest wall deformity. LUNGS: Harsh breath sound bilaterally no rhonchi no wheezes CVS: S1 and S2 normal with no audible murmur, regular rhythm. ABDOMEN: No hepatosplenomegaly, normal bowel sounds, no guarding or rigidity. SKIN: No rashes CENTRAL NERVOUS SYSTEM: Alert and oriented 3 focal deficit EXTREMITIES: No clubbing, no edema, no cyanosis - Labs CBC & Chem 7: 08/13/23 06:53 08/13/23 06:53 Labs: Abnormal Lab Results - Last 24 Hours (Table) 08/12/23 08/12/23 08/13/23 Range/Units 06:35 06:35 00:03 WBC (3.8-10.6) k/uL RBC (4.30-5.90) m/uL Hgb (13.0-17.5) gm/dL Hct (39.0-53.0) % BUN (9-20) mg/dL Creatinine (0.66-1.25) mg/dL Glucose (74-99) mg/dL POC Glucose (mg/dL) 123 H (70-110) mg/dL C-Reactive Protein 26.7 H (<1.0) mg/dL Total Protein (6.3-8.2) g/dL Albumin (3.5-5.0) g/dL Procalcitonin 0.78 H (0.02-0.09) ng/mL 08/13/23 08/13/23 08/13/23 Range/Units 06:51 06:53 06:53 WBC 10.9 H (3.8-10.6) k/uL RBC 4.09 L (4.30-5.90) m/uL Hgb 11.7 L (13.0-17.5) gm/dL Hct 37.0 L (39.0-53.0) % BUN 30 H (9-20) mg/dL Creatinine 0.44 L (0.66-1.25) mg/dL Glucose 149 H (74-99) mg/dL POC Glucose (mg/dL) 159 H (70-110) mg/dL C-Reactive Protein (<1.0) mg/dL Total Protein 4.5 L (6.3-8.2) g/dL Albumin 2.1 L (3.5-5.0) g/dL Procalcitonin (0.02-0.09) ng/mL 08/13/23 Range/Units 12:02 WBC (3.8-10.6) k/uL RBC (4.30-5.90) m/uL Hgb (13.0-17.5) gm/dL Hct (39.0-53.0) % BUN (9-20) mg/dL Creatinine (0.66-1.25) mg/dL Glucose (74-99) mg/dL POC Glucose (mg/dL) 183 H (70-110) mg/dL C-Reactive Protein (<1.0) mg/dL Total Protein (6.3-8.2) g/dL Albumin (3.5-5.0) g/dL Procalcitonin (0.02-0.09) ng/mL Assessment and Plan Assessment: Impression: Acute hypoxic respiratory failure Acute COVID-19 infection, possible pneumonia Possible superimposed bacterial pneumonia Underlying COPD based on his clinical history Type 2 diabetes Hypothyroidism Hypertension Dyslipidemia Recommendations: Continue BiPAP and FiO2 at 50% Continue to monitor in the ICU Continue Decadron Continue Lovenox Continue COVID-19 cocktail, including vitamin C, vitamin D, and zinc Not a candidate for Baricitinib and not a candidate for Remdesivir. CT angiogram of the chest was reviewed no evidence of pulmonary embolism Will continue to follow. Prognosis is relatively guarded Time with Patient: Less than 30
--- NOTE | 2023-08-13 14:14 | P.PN ---
Subjective Progress Note Date: 08/13/23 Patient today was a rapid response for worsening respiratory failure ended up on a 100% nonrebreather. Had a chest x-ray done which reveals a small right-sided pleural effusion and received a dose of IV Lasix. Was transferred to the intensive care unit and was placed on a 100% FiO2 BiPAP /. Noted the patient tested positive for Covid 4 days ago in the hospital but has been having symptoms for 10+ days outpatient and had a positive test outpatient as well. D- Dimer is elevated at 2.11 which is increased from 0.60 on admission. He has been started on IV zosyn empirically as well as PO decadron. 08/13/2023 Patient is evaluated in the intensive care unit. He remains on BiPAP currently at 55% fio2 08/27. CT angiography was completed yesterday which reveals no evidence of pulmonary embolism, there is bibasilar and right perihilar airspace consolidation. Findings are likely representing pneumonia and are new from prior. Lymphadenopathy throughout the mediastinum likely secondary to infectious process. Follow up chest xray today reveals ongoing extensive bilateral lower lung airspace disease right greater than left. Procalcitonin is improved at 0.78. Levemir as discontinued yesterday and blood glucose has improved. Remains on oral decadron, IV zosyn, albuterol inhaler, and supportive care. Review of Systems Unable to complete, patient is on BiPAP he is not answering questions PHYSICAL EXAMINATION: GENERAL: on BiPAP in the ICU, Well developed, well nourished. HEENT: Pupils are round and equally reacting to light. EOMI. No scleral icterus. No conjunctival pallor. Normocephalic, atraumatic. No pharyngeal erythema. No thyromegaly. CARDIOVASCULAR: S1 and S2 present. No murmurs, rubs, or gallops. PULMONARY: Diminished, bibasilar crackles ABDOMEN: Soft, nontender, nondistended, normoactive bowel sounds. No palpable organomegaly. MUSCULOSKELETAL: No joint swelling or deformity. EXTREMITIES: No cyanosis, clubbing, or pedal edema. NEUROLOGICAL: Gross neurological examination did not reveal any focal deficits. Generalized weakness. SKIN: No rashes. Assessment Acute covid 19 infection with underlying pneumonia and sepsis with elevated inflammatory markers. Acute hypoxic respiratory failure secondary to acute covid infection and COPD exacerbation COPD and mild COPD exacerbation Elevated D Dimer with no evidence of pulmonary embolism. Chronic nicotine use Diabetes Mellitus type 2 HX of coronary artery disease and prior cardiac stenting Gastroesophageal reflux disease Hypthyroidism Hypertension currently hypotensive Hyperlipidemia GI prophylaxis Protonix DVT prophylaxis Lovenox Full Code Plan CT angiography has been reviewed and no evidence of pulmonary embolism; remains on lovenox, Continue BiPAP per web production manager with FiO2 of 50% Continue oral decadron, and empiric IV zosyn Patient also remains on vitamin support for acute covid infection with zinc, multivitamin, vitamin c, vitamin D3 Hold metformin, and levemir; recommend to continue with sliding scale insulin and monitor blood glucose ACHS Continue to hold lisinopril, blood pressure is improving PT/OT following Repeat labs in AM The impression and plan of care has been dictated by Sherlyn Blancas, Nurse Practitioner as directed. Dr. Darrel MD I have performed a history and physical examination and medical decision making of this patient, discussed the same with the dictator, and agree with the dictators assessment and plan as written, documented as a scribe. Based on total visit time, I have performed more than 50% of this visit. Objective - Vital Signs Vital signs: Vital Signs Temp 98.3 F 08/13/23 08:00 Pulse 81 08/13/23 08:00 Resp 18 08/13/23 08:00 BP 137/93 08/13/23 08:00 Pulse Ox 95 08/13/23 08:00 FiO2 55 08/13/23 08:00 Intake & Output 08/12/23 08/13/23 08/13/23 18:59 06:59 18:59 Intake Total 1710 925 325 Output Total 590 580 115 Balance 1120 345 210 Weight 93.1 kg Intake: IV 310 925 325 .9NS 310 825 225 Piperacillin-Tazobactam 3 100 100 .375 gm In Sodium Chloride 0.9% 100 ml @ 25 mls/hr IVPB Q8HR [facility] Rx# :[id number] Intake, IV Titration 1400 Amount Magnesium Sulfate-D5w Pmx 200 1 gm In Dextrose/Water 1 100ml.bag @ 100 mls/hr IVPB Q1H [facility] Rx#: [id number] Piperacillin-Tazobactam 3 200 .375 gm In Sodium Chloride 0.9% 100 ml @ 25 mls/hr IVPB Q8HR [facility] Rx# :[id number] Sodium Chloride 0.9% 1, 1000 000 ml @ 999 mls/hr IV . Q1H1M ONE Rx#:[id number] Output: Urine 590 580 115 Other: Voiding Method Indwelling Catheter Indwelling Catheter # Bowel Movements 1 - Labs CBC & Chem 7: 08/13/23 06:53 08/13/23 06:53 Labs: Abnormal Lab Results - Last 24 Hours (Table) 08/12/23 08/12/23 08/12/23 Range/Units 06:35 06:35 10:04 WBC (3.8-10.6) k/uL RBC (4.30-5.90) m/uL Hgb (13.0-17.5) gm/dL Hct (39.0-53.0) % D-Dimer 2.11 H (<0.60) mg/L FEU ABG pCO2 (35-45) mmHg ABG pO2 (83-108) mmHg ABG HCO3 (21-25) mmol/L ABG Total CO2 (19-24) mmol/L ABG O2 Saturation (94-97) % BUN (9-20) mg/dL Creatinine (0.66-1.25) mg/dL Glucose (74-99) mg/dL POC Glucose (mg/dL) (70-110) mg/dL C-Reactive Protein 26.7 H (<1.0) mg/dL Total Protein (6.3-8.2) g/dL Albumin (3.5-5.0) g/dL Procalcitonin 0.78 H (0.02-0.09) ng/mL 08/12/23 08/13/23 08/13/23 Range/Units 11:36 00:03 06:51 WBC (3.8-10.6) k/uL RBC (4.30-5.90) m/uL Hgb (13.0-17.5) gm/dL Hct (39.0-53.0) % D-Dimer (<0.60) mg/L FEU ABG pCO2 48 H (35-45) mmHg ABG pO2 128 H (83-108) mmHg ABG HCO3 29 H (21-25) mmol/L ABG Total CO2 30 H (19-24) mmol/L ABG O2 Saturation 98.6 H (94-97) % BUN (9-20) mg/dL Creatinine (0.66-1.25) mg/dL Glucose (74-99) mg/dL POC Glucose (mg/dL) 123 H 159 H (70-110) mg/dL C-Reactive Protein (<1.0) mg/dL Total Protein (6.3-8.2) g/dL Albumin (3.5-5.0) g/dL Procalcitonin (0.02-0.09) ng/mL 08/13/23 08/13/23 Range/Units 06:53 06:53 WBC 10.9 H (3.8-10.6) k/uL RBC 4.09 L (4.30-5.90) m/uL Hgb 11.7 L (13.0-17.5) gm/dL Hct 37.0 L (39.0-53.0) % D-Dimer (<0.60) mg/L FEU ABG pCO2 (35-45) mmHg ABG pO2 (83-108) mmHg ABG HCO3 (21-25) mmol/L ABG Total CO2 (19-24) mmol/L ABG O2 Saturation (94-97) % BUN 30 H (9-20) mg/dL Creatinine 0.44 L (0.66-1.25) mg/dL Glucose 149 H (74-99) mg/dL POC Glucose (mg/dL) (70-110) mg/dL C-Reactive Protein (<1.0) mg/dL Total Protein 4.5 L (6.3-8.2) g/dL Albumin 2.1 L (3.5-5.0) g/dL Procalcitonin (0.02-0.09) ng/mL Assessment and Plan Time with Patient: Less than 30
[2023-08-13 15:00] LABS: Glucose,Whole Blood 219 mg/dL (70-110)
[2023-08-13 16:05] LABS: Glucose,Whole Blood 222 mg/dL (70-110)
[2023-08-13 16:45] LABS: Band Neutrophils % 9 %; Lymphocytes # (M) 0.22 k/uL (1.0-4.8); Metamyelocytes # (M) 0.11 k/uL (0); Metamyelocytes % 1 %; Monocytes # (M) 0.22 k/uL (0-1.0); Neutrophils % (M) 87 %; Nucleated Red Blood Cells 0 /100 WBC (0-0); Total Cells Counted 200
[2023-08-13 20:35] LABS: Glucose,Whole Blood 222 mg/dL (70-110)
[2023-08-13] MEDS: CITALOPRAM HYDROBROMIDE 20 MG TAB PO SCH (21:27)
[2023-08-13] MEDS: ATORVASTATIN 20 MG TAB PO SCH (21:27)
[2023-08-13] MEDS: ASCORBIC ACID 500 MG TAB PO SCH (21:27)
[2023-08-13 23:56] LABS: Glucose,Whole Blood 264 mg/dL (70-110)
[2023-08-14] MEDS: PIPERACILLIN-TAZOBACTAM 3.375 GM in SODIUM CHLORIDE 0.9% 100 ML IVPB SCH ×3 (00:19→16:21)
[2023-08-14] MEDS: SODIUM CHLORIDE 0.9% 1,000 ML IV SCH ×3 (02:38→16:24)
[2023-08-14] MEDS: ALBUTEROL HFA INHALER INHALATION SCH ×5 (03:05→20:55)
[2023-08-14 04:27] LABS: Basophils # (A) 0.1 k/uL (0-0.2); Basophils % (A) 1 %; Eosinophils % (A) 0 %; HCT 37.4 % (39.0-53.0); HGB 11.9 gm/dL (13.0-17.5); Lymphocytes # (A) 0.3 k/uL (1.0-4.8); Lymphocytes % (A) 2 %; MCH 28.4 pg (25.0-35.0); MCHC 31.7 g/dL (31.0-37.0); MCV 89.6 fL (80.0-100.0); Monocytes # (A) 0.6 k/uL (0-1.0); Monocytes % (A) 4 %; Neutrophils # (A) 14.6 k/uL (1.3-7.7); Neutrophils % (A) 93 %; Platelet Count 311 k/uL (150-450); RBC 4.18 m/uL (4.30-5.90); RDW 14.3 % (11.5-15.5); WBC 15.7 k/uL (3.8-10.6)
[2023-08-14 04:48] LABS: African American GFR (CKD) >90 (>60 ml/min/1.73 sqM); Anion Gap 8 mmol/L; Blood Urea Nitrogen 36 mg/dL (9-20); Calcium 8.9 mg/dL (8.4-10.2); Carbon Dioxide 23 mmol/L (22-30); Chloride 104 mmol/L (98-107); Glucose 196 mg/dL (74-99); Non-African American GFR(CKD) >90 (>60 ml/min/1.73 sqM); Potassium 3.9 mmol/L (3.5-5.1); Sodium 135 mmol/L (137-145)
[2023-08-14 06:45] LABS: Glucose,Whole Blood 244 mg/dL (70-110)
[2023-08-14] MEDS: LORATADINE 10 MG TAB PO SCH (06:59)
[2023-08-14] MEDS: PANTOPRAZOLE 40 MG TABLET PO SCH (06:59)
[2023-08-14] MEDS: CHOLECALCIFEROL 125 MCG (5000 IU) TABLET PO SCH (06:59)
[2023-08-14] MEDS: LEVOTHYROXINE 137 MCG TAB PO SCH (06:59)
[2023-08-14] MEDS: ASPIRIN 325 MG TAB PO SCH (06:59)
[2023-08-14] MEDS: carvediloL 12.5 MG TAB PO SCH ×2 (06:59→16:22)
[2023-08-14] MEDS: INSULIN ASPART (NovoLOG) 100 UNIT/ML VIAL SQ SCH ×4 (07:00→21:42)
[2023-08-14] MEDS: MELOXICAM 7.5 MG TAB PO SCH (07:05)
--- NOTE | 2023-08-14 07:32 | XR ---
EXAMINATION TYPE: XR chest 1V portable DATE OF EXAM: 08/14/2023 HISTORY: Shortness of breath. COMPARISON: 08/13/2023 TECHNIQUE: Single view of the chest is submitted. FINDINGS: Demonstrated are scattered senescent parenchymal change. Basilar infiltrates persist essentially unchanged. The heart is stable. Hilar and mediastinal structures are within normal limits. Degenerative changes are seen of the dorsal spine. IMPRESSION: 1. Stable chest
[2023-08-14] MEDS: ENOXAPARIN 40 MG/0.4 ML SYRINGE SQ SCH (08:16)
[2023-08-14] MEDS: buPROPion XL 150 MG TAB.ER.24H PO SCH ×2 (08:17→21:42)
[2023-08-14] MEDS: dexAMETHasone 2 MG TAB PO SCH (08:17)
[2023-08-14] MEDS: MULTIVITAMINS, THERA 1 EACH TAB PO SCH (08:18)
[2023-08-14] MEDS: guaiFENesin 600 MG TABLET.ER PO SCH ×4 (08:18→21:42)
[2023-08-14] MEDS: ZINC SULFATE 220 MG CAP PO SCH (08:18)
[2023-08-14] MEDS: NICOTINE 21MG/24HR PATCH TRANSDERM SCH (08:18)
[2023-08-14] MEDS: TIOTROPIUM 2.5 MCG INHALER INHALATION SCH (09:20)
[2023-08-14] MEDS: SYMBICORT 160-4.5 MCG INHALER INHALATION SCH ×2 (09:20→20:55)
--- NOTE | 2023-08-14 11:13 | P.PN ---
Subjective Progress Note Date: 08/14/23 Principal diagnosis: Acute COVID-19 infection/pneumonia Patient is 68-year-old male presents emergency department for altered mental status. Patient has been positive for COVID-19 for 7 days. He's been sick and weak for the last 2 weeks. Currently patient is brought in by EMS after his family member called for concerns of altered mental status. . The patient been feeling lethargic, weak, and becoming more incoherent and at the same time feeling tired and fatigued without any stamina or energy. His oral intake has also been diminished and the patient was complaining of some shortness of breath in addition. He has not been infected with Covid 19 in the past and this is current infection. His symptoms started approximately 10 days ago and the patient tested positive approximately a week ago based on an outpatient. He has not received any treatment on outpatient basis. Patient is vaccinated for COVID-19 2 and the patient not been infected in the past.. Complains of total body pain, cough, shortness of breath.. The patient's is admitted for the same and currently she is hospitalized for Covid 19 infection and pneumonia. He has no focal neurological deficit and a CAT scan of the brain was negative. The chest x-ray showed no acute abnormalities. He has COPD. There is some mild increased interstitial markings bilaterally which could reflect bronchitis or limited Covid 19 related pneumonia changes. The patient is currently on 2 L of oxygen nasal cannula with pulse ox of 93% patient is running a low-grade fever. Also, his echoes at 10.1 with a hemoglobin of 14.6 and a platelet count of 146. D-dimer is at 0.6. Sodium is at 134 with a potassium level of 3.1. BUN is 16 with a creatinine of 0.4. Pro-calcitonin level is at 1.2. TSH 0.8. LDH level is at 117. On today's evaluation of 08/10/2023, seeing the patient for a follow-up. Slightly improved compared to yesterday. Still having issues with lethargy and weakness. No altered mentation at this point in time. No nausea and emesis. He has a congested cough as the patient has advanced COPD and is a chronic smoker. He remains on Decadron. Some elevation of blood sugar is noted and the patient's HbA1c level is at 9.6 indicating portal blood sugar control. The d-di tami is at 0.6. TSH 0.8. Pro-calcitonin level was interestingly elevated at 1.2. No clear indication for an underlying bacterial infection at this point in time. The patient remains on Lovenox for DVT prophylaxis. Home medications of his COPD remains on Symbicort and albuterol HFA [id number]. The patient is seen today 08/11/2023 in follow-up on the regular medical floor. He is currently resting comfortably in bed. Awake and alert in no acute distress. He is sitting up in bed. He is maintaining O2 saturations in the 90s on room air. His a dry nonproductive cough. White count 7.6. Hemoglobin 12.0. Platelets 207. Sodium 136. Potassium 4.2. Bicarb 27. BUN 24. Creatinine 0 .49. Glucose 108. AST 22. ALT 19. He is continued on Symbicort, Spiriva, albuterol, vitamin supplements. Maintained on Decadron. Lovenox for DVT prophylaxis. NicoDerm patch in place. Patient was reevaluated today on 08/12/70, patient had a downhill course overnight, and his oxygenation deteriorated, required placement on BiPAP, and 100% FiO2, and he had an increase in the work of breathing, hence the patient was transferred to the ICU and he remains on BiPAP 08/27/100%. Patient also had a worsening chest x-ray with worsening bilateral pneumonia right more so than left, he remains on Decadron, Lovenox, Zosyn, and he received 1 dose of Lasix 40 mg IV push but no significant improvement. And no significant urine output after the Lasix given. His IV fluid is 0.9 at 75 mL per hour, pro-calcitonin is elevated at 1.2. D-dimer is up to 2.11, and I'm recommending a CT angiogram of the chest on this patient. Follow-up ABG on BiPAP showed a pO2 of 128 pCO2 48 pH of 7.38. Considering his pro-calcitonin, patient is not a candidate for Baricitinib, and he is already out of the therapeutic window to start on Remdesivir. Considering his overall pulmonary status is marginal, I prefer to keep a close watch in the ICU. Reevaluated today on 08/13/23, patient remains in the ICU, remains on BiPAP 08/27/55% and I got him down to 50%. Patient remains on Decadron, Lovenox, Zosyn, his also on the COVID-19 cocktail. Slightly better today compared to yesterday, chest x-ray and CT angiogram of the chest clearly showed extensive bilateral pneumonia and consolidation. Clinically there is slight improvement, patient is hemodynamically stable, he is on IV fluid at 75 mL/h, has good urine output. And again his hemodynamics are normal. WBC count is 10.9 hemoglobin is 11.7 basic metabolic profile is normal renal profile is normal inflammatory markers including C-reactive protein and LDH was slightly elevated with pro- calcitonin also of 0.78, C-reactive protein of 26.7, and LDH of 188 Patient was reevaluated today on 08/14/patient remains in the ICU, remains on BiPAP 08/27/50%, remains on Lovenox, Decadron, and Zosyn. Clinically the patient stated that his feeling better chest x-ray is basically about the same patient's oxygenation is improving on 50% of BiPAP, hence I am considering transitioning the patient to airvo or high flow nasal cannula. In the meantime the patient's overall clinical status remains very marginal at best, and I prefer to keep him in the ICU for now. WBC count is 15.7 hemoglobin is 11.9 basic metabolic profile is normal and DL profile is Objective - Vital Signs Vital signs: Vital Signs Temp 98.9 F 08/14/23 08:00 Pulse 72 08/14/23 11:00 Resp 22 08/14/23 11:00 BP 127/94 08/14/23 11:00 Pulse Ox 92 L 08/14/23 11:00 FiO2 60 08/14/23 11:08 Intake & Output 08/13/23 08/14/23 08/14/23 18:59 06:59 18:59 Intake Total 1175 1405 150 Output Total 680 590 130 Balance 495 815 20 Weight 96 kg Intake: IV 1175 925 150 .9NS 975 825 150 Piperacillin-Tazobactam 3 200 100 .375 gm In Sodium Chloride 0.9% 100 ml @ 25 mls/hr IVPB Q8HR [facility] Rx# :[id number] Oral 480 Output: Urine 680 590 130 Other: Voiding Method Indwelling Catheter Indwelling Catheter - Exam GENERAL EXAM: Revealed a 68-year-old white male, on BiPAP, /50% HEAD: Normocephalic. EYES: Normal reaction of pupils, equal size. NOSE: Clear with pink turbinates. THROAT: No erythema or exudates. NECK: No masses, no JVD. CHEST: No chest wall deformity. LUNGS: Egophony noted at the right lower lobe and crackles heard over the right lung. CVS: S1 and S2 normal with no audible murmur, regular rhythm. ABDOMEN: No hepatosplenomegaly, normal bowel sounds, no guarding or rigidity. SKIN: No rashes CENTRAL NERVOUS SYSTEM: Alert and oriented 3 focal deficit EXTREMITIES: No clubbing, no edema, no cyanosis - Labs CBC & Chem 7: 08/14/23 03:51 08/14/23 03:51 Labs: Abnormal Lab Results - Last 24 Hours (Table) 08/13/23 08/13/23 08/13/23 Range/Units 06:53 12:02 14:58 WBC (3.8-10.6) k/uL RBC (4.30-5.90) m/uL Hgb (13.0-17.5) gm/dL Hct (39.0-53.0) % Neutrophils # (1.3-7.7) k/uL Neutrophils # (Manual) 10.40 H (1.3-7.7) k/uL Lymphocytes # (1.0-4.8) k/uL Lymphocytes # (Manual) 0.22 L (1.0-4.8) k/uL Metamyelocytes # (Man) 0.11 H (0) k/uL Sodium (137-145) mmol/L BUN (9-20) mg/dL Creatinine (0.66-1.25) mg/dL Glucose (74-99) mg/dL POC Glucose (mg/dL) 183 H 219 H (70-110) mg/dL 08/13/23 08/13/23 08/13/23 Range/Units 16:03 20:34 23:54 WBC (3.8-10.6) k/uL RBC (4.30-5.90) m/uL Hgb (13.0-17.5) gm/dL Hct (39.0-53.0) % Neutrophils # (1.3-7.7) k/uL Neutrophils # (Manual) (1.3-7.7) k/uL Lymphocytes # (1.0-4.8) k/uL Lymphocytes # (Manual) (1.0-4.8) k/uL Metamyelocytes # (Man) (0) k/uL Sodium (137-145) mmol/L BUN (9-20) mg/dL Creatinine (0.66-1.25) mg/dL Glucose (74-99) mg/dL POC Glucose (mg/dL) 222 H 222 H 264 H (70-110) mg/dL 08/14/23 08/14/23 08/14/23 Range/Units 03:51 03:51 06:44 WBC 15.7 H (3.8-10.6) k/uL RBC 4.18 L (4.30-5.90) m/uL Hgb 11.9 L (13.0-17.5) gm/dL Hct 37.4 L (39.0-53.0) % Neutrophils # 14.6 H (1.3-7.7) k/uL Neutrophils # (Manual) (1.3-7.7) k/uL Lymphocytes # 0.3 L (1.0-4.8) k/uL Lymphocytes # (Manual) (1.0-4.8) k/uL Metamyelocytes # (Man) (0) k/uL Sodium 135 L (137-145) mmol/L BUN 36 H (9-20) mg/dL Creatinine 0.44 L (0.66-1.25) mg/dL Glucose 196 H (74-99) mg/dL POC Glucose (mg/dL) 244 H (70-110) mg/dL Assessment and Plan Assessment: Impression: Acute hypoxic respiratory failure Acute COVID-19 infection, possible pneumonia Possible superimposed bacterial pneumonia Underlying COPD based on his clinical history Type 2 diabetes Hypothyroidism Hypertension Dyslipidemia Recommendations: Continue BiPAP and FiO2 at 50%, consider transitioning the patient to either airvo or high flow nasal cannula and continue to monitor saturations titrate accordingly Continue to monitor in the ICU Continue Decadron Continue Lovenox, continue Zosyn Continue COVID-19 cocktail, including vitamin C, vitamin D, and zinc CT angiogram of the chest was reviewed no evidence of pulmonary embolism Will continue to follow. Prognosis is relatively guarded Time with Patient: Less than 30
[2023-08-14 11:40] LABS: Glucose,Whole Blood 234 mg/dL (70-110)
[2023-08-14 16:29] LABS: Glucose,Whole Blood 232 mg/dL (70-110)
--- NOTE | 2023-08-14 17:42 | P.PN ---
Subjective Progress Note Date: 08/14/23 Patient today was a rapid response for worsening respiratory failure ended up on a 100% nonrebreather. Had a chest x-ray done which reveals a small right-sided pleural effusion and received a dose of IV Lasix. Was transferred to the intensive care unit and was placed on a 100% FiO2 BiPAP 08/27. Noted the patient tested positive for Covid 4 days ago in the hospital but has been having symptoms for 10+ days outpatient and had a positive test outpatient as well. D- Dimer is elevated at 2.11 which is increased from 0.60 on admission. He has been started on IV zosyn empirically as well as PO decadron. 08/13/2023 Patient is evaluated in the intensive care unit. He remains on BiPAP currently at 55% fio2 08/27. CT angiography was completed yesterday which reveals no evidence of pulmonary embolism, there is bibasilar and right perihilar airspace consolidation. Findings are likely representing pneumonia and are new from prior. Lymphadenopathy throughout the mediastinum likely secondary to infectious process. Follow up chest xray today reveals ongoing extensive bilateral lower lung airspace disease right greater than left. Procalcitonin is improved at 0.78. Levemir as discontinued yesterday and blood glucose has improved. Remains on oral decadron, IV zosyn, albuterol inhaler, and supportive care. 08/14/2023 Patient remains in intensive care unit. Currently on BiPAP with 50% FiO2. Chest xray today showing stable infiltrates. White count 15. Renal function normal. Blood glucose improved. Patient remains on empiric antibiotics with IV zosyn. On oral decadron and supportive care. Review of Systems Unable to complete, patient is on BiPAP he is not answering questions PHYSICAL EXAMINATION: GENERAL: on BiPAP in the ICU, Well developed, well nourished. HEENT: Pupils are round and equally reacting to light. EOMI. No scleral icterus. No conjunctival pallor. Normocephalic, atraumatic. No pharyngeal erythema. No thyromegaly. CARDIOVASCULAR: S1 and S2 present. No murmurs, rubs, or gallops. PULMONARY: Diminished, bibasilar crackles ABDOMEN: Soft, nontender, nondistended, normoactive bowel sounds. No palpable organomegaly. MUSCULOSKELETAL: No joint swelling or deformity. EXTREMITIES: No cyanosis, clubbing, or pedal edema. NEUROLOGICAL: Gross neurological examination did not reveal any focal deficits. Generalized weakness. SKIN: No rashes. Assessment Acute covid 19 infection with underlying pneumonia and sepsis with elevated inflammatory markers. Acute hypoxic respiratory failure secondary to acute covid infection and COPD exacerbation mild COPD exacerbation Elevated D Dimer with no evidence of pulmonary embolism. Chronic nicotine use Diabetes Mellitus type 2 HX of coronary artery disease and prior cardiac stenting Gastroesophageal reflux disease Hypthyroidism Hypertension currently hypotensive Hyperlipidemia GI prophylaxis Protonix DVT prophylaxis Lovenox Full Code Plan CT angiography has been reviewed and no evidence of pulmonary embolism; remains on lovenox Continue BiPAP per bpm analyst with FiO2 of 50% Continue oral decadron, and empiric IV zosyn Patient also remains on vitamin support for acute covid infection with zinc, multivitamin, vitamin c, vitamin D3 Continue to hold metformin, levemir will be resumed; recommend to continue with sliding scale insulin and monitor blood glucose ACHS Continue to hold lisinopril, blood pressure is improving PT/OT following Repeat labs in AM The impression and plan of care has been dictated by Sherlyn Blancas, Nurse Practitioner as directed. Dr. Marlee MD I have performed a history and physical examination and medical decision making of this patient, discussed the same with the dictator, and agree with the dictators assessment and plan as written, documented as a scribe. Based on total visit time, I have performed more than 100% of this visit. Objective - Vital Signs Vital signs: Vital Signs Temp 97.1 F L 08/14/23 04:00 Pulse 72 08/14/23 07:00 Resp 17 08/14/23 07:00 BP 124/89 08/14/23 07:00 Pulse Ox 94 L 08/14/23 07:00 FiO2 50 08/14/23 07:46 Intake & Output 08/13/23 08/14/23 08/14/23 18:59 06:59 18:59 Intake Total 1175 1405 75 Output Total 680 590 55 Balance 495 815 20 Weight 96 kg Intake: IV 1175 925 75 .9NS 975 825 75 Piperacillin-Tazobactam 3 200 100 .375 gm In Sodium Chloride 0.9% 100 ml @ 25 mls/hr IVPB Q8HR [facility] Rx# :[id number] Oral 480 Output: Urine 680 590 55 Other: Voiding Method Indwelling Catheter Indwelling Catheter - Labs CBC & Chem 7: 08/14/23 03:51 08/14/23 03:51 Labs: Abnormal Lab Results - Last 24 Hours (Table) 08/13/23 08/13/23 08/13/23 Range/Units 06:53 12:02 14:58 WBC (3.8-10.6) k/uL RBC (4.30-5.90) m/uL Hgb (13.0-17.5) gm/dL Hct (39.0-53.0) % Neutrophils # (1.3-7.7) k/uL Neutrophils # (Manual) 10.40 H (1.3-7.7) k/uL Lymphocytes # (1.0-4.8) k/uL Lymphocytes # (Manual) 0.22 L (1.0-4.8) k/uL Metamyelocytes # (Man) 0.11 H (0) k/uL Sodium (137-145) mmol/L BUN (9-20) mg/dL Creatinine (0.66-1.25) mg/dL Glucose (74-99) mg/dL POC Glucose (mg/dL) 183 H 219 H (70-110) mg/dL 08/13/23 08/13/23 08/13/23 Range/Units 16:03 20:34 23:54 WBC (3.8-10.6) k/uL RBC (4.30-5.90) m/uL Hgb (13.0-17.5) gm/dL Hct (39.0-53.0) % Neutrophils # (1.3-7.7) k/uL Neutrophils # (Manual) (1.3-7.7) k/uL Lymphocytes # (1.0-4.8) k/uL Lymphocytes # (Manual) (1.0-4.8) k/uL Metamyelocytes # (Man) (0) k/uL Sodium (137-145) mmol/L BUN (9-20) mg/dL Creatinine (0.66-1.25) mg/dL Glucose (74-99) mg/dL POC Glucose (mg/dL) 222 H 222 H 264 H (70-110) mg/dL 08/14/23 08/14/23 08/14/23 Range/Units 03:51 03:51 06:44 WBC 15.7 H (3.8-10.6) k/uL RBC 4.18 L (4.30-5.90) m/uL Hgb 11.9 L (13.0-17.5) gm/dL Hct 37.4 L (39.0-53.0) % Neutrophils # 14.6 H (1.3-7.7) k/uL Neutrophils # (Manual) (1.3-7.7) k/uL Lymphocytes # 0.3 L (1.0-4.8) k/uL Lymphocytes # (Manual) (1.0-4.8) k/uL Metamyelocytes # (Man) (0) k/uL Sodium 135 L (137-145) mmol/L BUN 36 H (9-20) mg/dL Creatinine 0.44 L (0.66-1.25) mg/dL Glucose 196 H (74-99) mg/dL POC Glucose (mg/dL) 244 H (70-110) mg/dL Assessment and Plan Time with Patient: Less than 30
[2023-08-14] MEDS ORDERED: INSULIN DETEMIR (LEVEMIR) 100 UNIT/ML SYR SQ SCH (21:00)
[2023-08-14 21:09] LABS: Glucose,Whole Blood 245 mg/dL (70-110)
[2023-08-14] MEDS: ASCORBIC ACID 500 MG TAB PO SCH (21:42)
[2023-08-14] MEDS: ATORVASTATIN 20 MG TAB PO SCH (21:42)
[2023-08-14] MEDS: CITALOPRAM HYDROBROMIDE 20 MG TAB PO SCH (21:42)
[2023-08-15] MEDS: ALBUTEROL HFA INHALER INHALATION SCH ×6 (00:16→20:44)
[2023-08-15] MEDS: PIPERACILLIN-TAZOBACTAM 3.375 GM in SODIUM CHLORIDE 0.9% 100 ML IVPB SCH ×4 (00:38→23:40)
[2023-08-15 02:46] LABS: Glucose,Whole Blood 190 mg/dL (70-110)
[2023-08-15] MEDS: SODIUM CHLORIDE 0.9% 1,000 ML IV SCH ×3 (04:36→16:09)
[2023-08-15 06:37] LABS: Glucose,Whole Blood 158 mg/dL (70-110)
[2023-08-15 06:38] LABS: African American GFR (CKD) >90 (>60 ml/min/1.73 sqM); Anion Gap 5 mmol/L; Blood Urea Nitrogen 32 mg/dL (9-20); Calcium 8.5 mg/dL (8.4-10.2); Carbon Dioxide 28 mmol/L (22-30); Chloride 103 mmol/L (98-107); Glucose 167 mg/dL (74-99); Non-African American GFR(CKD) >90 (>60 ml/min/1.73 sqM); Sodium 136 mmol/L (137-145)
[2023-08-15 06:51] LABS: Basophils # (A) 0.1 k/uL (0-0.2); Basophils % (A) 0 %; Eosinophils % (A) 0 %; HCT 34.7 % (39.0-53.0); HGB 11.6 gm/dL (13.0-17.5); Lymphocytes # (A) 0.6 k/uL (1.0-4.8); Lymphocytes % (A) 4 %; MCH 29.8 pg (25.0-35.0); MCHC 33.6 g/dL (31.0-37.0); MCV 88.8 fL (80.0-100.0); Mean Platelet Volume 8.2; Monocytes % (A) 8 %; Neutrophils # (A) 11.1 k/uL (1.3-7.7); Neutrophils % (A) 86 %; Platelet Count 324 k/uL (150-450); RBC 3.91 m/uL (4.30-5.90); RDW 14.5 % (11.5-15.5); WBC 12.9 k/uL (3.8-10.6)
[2023-08-15] MEDS: CHOLECALCIFEROL 125 MCG (5000 IU) TABLET PO SCH (06:54)
[2023-08-15] MEDS: LORATADINE 10 MG TAB PO SCH (06:54)
[2023-08-15] MEDS: PANTOPRAZOLE 40 MG TABLET PO SCH (06:54)
[2023-08-15] MEDS: ASPIRIN 325 MG TAB PO SCH (06:54)
[2023-08-15] MEDS: carvediloL 12.5 MG TAB PO SCH ×2 (06:54→17:17)
[2023-08-15] MEDS: LEVOTHYROXINE 137 MCG TAB PO SCH (06:54)
[2023-08-15] MEDS: MELOXICAM 7.5 MG TAB PO SCH (06:55)
--- NOTE | 2023-08-15 08:01 | XR ---
EXAMINATION TYPE: XR chest 1V portable DATE OF EXAM: 08/15/2023 HISTORY: Shortness of breath. COMPARISON: 08/14/2023 TECHNIQUE: Single view of the chest is submitted. FINDINGS: Demonstrated are scattered senescent parenchymal change. Persistent but improving perihilar and basilar infiltrates compatible with pneumonia. Continued progr ess studies are advised. The heart is stable. Hilar and mediastinal structures are within normal limits. Degenerative changes are seen of the dorsal spine. IMPRESSION: 1. Persistent but improving perihilar and basilar infiltrates compatible with pneumonia. Continued p rogress studies are advised.
[2023-08-15] MEDS: SYMBICORT 160-4.5 MCG INHALER INHALATION SCH ×2 (08:30→20:44)
[2023-08-15] MEDS: TIOTROPIUM 2.5 MCG INHALER INHALATION SCH ×2 (08:30→11:36)
[2023-08-15] MEDS: ENOXAPARIN 40 MG/0.4 ML SYRINGE SQ SCH (08:42)
[2023-08-15] MEDS: NICOTINE 21MG/24HR PATCH TRANSDERM SCH (08:43)
[2023-08-15] MEDS: INSULIN ASPART (NovoLOG) 100 UNIT/ML VIAL SQ SCH ×4 (08:43→20:55)
[2023-08-15] MEDS: guaiFENesin 600 MG TABLET.ER PO SCH ×4 (08:44→21:00)
[2023-08-15] MEDS: MULTIVITAMINS, THERA 1 EACH TAB PO SCH (08:44)
[2023-08-15] MEDS: ZINC SULFATE 220 MG CAP PO SCH (08:44)
[2023-08-15] MEDS: dexAMETHasone 2 MG TAB PO SCH (08:45)
[2023-08-15] MEDS: buPROPion XL 150 MG TAB.ER.24H PO SCH ×2 (08:45→20:55)
[2023-08-15] MEDS: ACETAMINOPHEN TAB 325 MG TAB PO PRN (09:15)
[2023-08-15 11:05] LABS: Glucose,Whole Blood 187 mg/dL (70-110)
--- NOTE | 2023-08-15 12:37 | P.PN ---
Subjective Progress Note Date: 08/15/23 Patient today was a rapid response for worsening respiratory failure ended up on a 100% nonrebreather. Had a chest x-ray done which reveals a small right-sided pleural effusion and received a dose of IV Lasix. Was transferred to the intensive care unit and was placed on a 100% FiO2 BiPAP 08/27. Noted the patient tested positive for Covid 4 days ago in the hospital but has been having symptoms for 10+ days outpatient and had a positive test outpatient as well. D- Dimer is elevated at 2.11 which is increased from 0.60 on admission. He has been started on IV zosyn empirically as well as PO decadron. 08/13/2023 Patient is evaluated in the intensive care unit. He remains on BiPAP currently at 55% fio2 08/27. CT angiography was completed yesterday which reveals no evidence of pulmonary embolism, there is bibasilar and right perihilar airspace consolidation. Findings are likely representing pneumonia and are new from prior. Lymphadenopathy throughout the mediastinum likely secondary to infectious process. Follow up chest xray today reveals ongoing extensive bilateral lower lung airspace disease right greater than left. Procalcitonin is improved at 0.78. Levemir as discontinued yesterday and blood glucose has improved. Remains on oral decadron, IV zosyn, albuterol inhaler, and supportive care. 08/14/2023 Patient remains in intensive care unit. Currently on BiPAP with 50% FiO2. Chest xray today showing stable infiltrates. White count 15. Renal function normal. Blood glucose improved. Patient remains on empiric antibiotics with IV zosyn. On oral decadron and supportive care. 08/15. Patient seen and examined. Patient continues to be on heated high flow. States he feels better. Sitting upright in the chair REVIEW OF SYSTEMS: CONSTITUTIONAL: No fever, no malaise,. CARDIOVASCULAR: No chest pain, no palpitations, no syncope. PULMONARY: No shortness of breath, no cough, GASTROINTESTINAL: No diarrhea, no nausea, no vomiting, no abdominal pain. NEUROLOGICAL: No headaches, no weakness, PHYSICAL EXAMINATION: GENERAL: The patient is alert and oriented x3, chronically ill-looking HEENT: Pupils are round and equally reacting to light. EOMI. No scleral icterus. No conjunctival pallor. Normocephalic, atraumatic. No pharyngeal erythema. No thyromegaly. CARDIOVASCULAR: S1 and S2 present. No murmurs, rubs, or gallops. PULMONARY: Coarse breath sounds bilaterally, expiratory rhonchi audible ABDOMEN: Soft, nontender, nondistended, normoactive bowel sounds. No palpable organomegaly. MUSCULOSKELETAL: No joint swelling or deformity. EXTREMITIES: No cyanosis, clubbing, or pedal edema. NEUROLOGICAL: Gross neurological examination did not reveal any focal deficits. SKIN: No rashes. Assessment and plan Acute covid 19 infection with underlying pneumonia and sepsis with elevated inflammatory markers. Acute hypoxic respiratory failure secondary to acute covid infection and COPD exacerbation mild COPD exacerbation Elevated D Dimer with no evidence of pulmonary embolism. Chronic nicotine use Diabetes Mellitus type 2 HX of coronary artery disease and prior cardiac stenting Gastroesophageal reflux disease Hypthyroidism Hypertension currently hypotensive Hyperlipidemia Monitor vital signs Monitor CBC Monitor CMP Continue telemetry monitoring Encourage use of incentive spirometer Aggressive bronchopulmonary hygiene Continue oxygen supplementation Continues of BiPAP as needed Continue decadron Continue IV zosyn continue with sliding scale insulin and monitor blood glucose ACHS Critical care following Labs and medication were reviewed.. Continue same treatment. Continue with symptomatic treatment. Resume home medication. Monitor labs and vitals. DVT and GI prophylaxis. Further recommendations as per clinical course of the patient Dictation was produced using [employer] dictation software. please excuse any grammatical, word or spelling errors. Objective - Vital Signs Vital signs: Vital Signs Temp 97.8 F 08/15/23 12:00 Pulse 65 08/15/23 12:00 Resp 19 08/15/23 12:00 BP 123/89 08/15/23 12:00 Pulse Ox 94 L 08/15/23 12:00 FiO2 60 08/15/23 12:00 Intake & Output 08/14/23 08/15/23 08/15/23 18:59 06:59 18:59 Intake Total 900 930 550 Output Total 780 725 265 Balance 120 205 285 Weight 97.6 kg 97.6 kg Intake: IV 900 900 550 .9NS 900 900 450 Piperacillin-Tazobactam 3 100 .375 gm In Sodium Chloride 0.9% 100 ml @ 25 mls/hr IVPB Q8HR [facility] Rx# :[id number] Oral 30 Output: Urine 780 725 265 Other: Voiding Method Indwelling Catheter Indwelling Catheter Indwelling Catheter - Labs CBC & Chem 7: 11/24/23 05:52 08/15/23 05:52 Labs: Abnormal Lab Results - Last 24 Hours (Table) 08/14/23 08/14/23 08/15/23 Range/Units 16:27 21:08 02:45 WBC (3.8-10.6) k/uL RBC (4.30-5.90) m/uL Hgb (13.0-17.5) gm/dL Hct (39.0-53.0) % Neutrophils # (1.3-7.7) k/uL Lymphocytes # (1.0-4.8) k/uL Sodium (137-145) mmol/L BUN (9-20) mg/dL Creatinine (0.66-1.25) mg/dL Glucose (74-99) mg/dL POC Glucose (mg/dL) 232 H 245 H 190 H (70-110) mg/dL 08/15/23 08/15/23 08/15/23 Range/Units 05:52 05:52 06:36 WBC 12.9 H (3.8-10.6) k/uL RBC 3.91 L (4.30-5.90) m/uL Hgb 11.6 L (13.0-17.5) gm/dL Hct 34.7 L (39.0-53.0) % Neutrophils # 11.1 H (1.3-7.7) k/uL Lymphocytes # 0.6 L (1.0-4.8) k/uL Sodium 136 L (137-145) mmol/L BUN 32 H (9-20) mg/dL Creatinine 0.43 L (0.66-1.25) mg/dL Glucose 167 H (74-99) mg/dL POC Glucose (mg/dL) 158 H (70-110) mg/dL 08/15/23 Range/Units 11:03 WBC (3.8-10.6) k/uL RBC (4.30-5.90) m/uL Hgb (13.0-17.5) gm/dL Hct (39.0-53.0) % Neutrophils # (1.3-7.7) k/uL Lymphocytes # (1.0-4.8) k/uL Sodium (137-145) mmol/L BUN (9-20) mg/dL Creatinine (0.66-1.25) mg/dL Glucose (74-99) mg/dL POC Glucose (mg/dL) 187 H (70-110) mg/dL
--- NOTE | 2023-08-15 13:41 | P.PN ---
Subjective Progress Note Date: 08/15/23 Principal diagnosis: Acute COVID-19 infection/pneumonia Patient is 68-year-old male presents emergency department for altered mental status. Patient has been positive for COVID-19 for 7 days. He's been sick and weak for the last 2 weeks. Currently patient is brought in by EMS after his family member called for concerns of altered mental status. . The patient been feeling lethargic, weak, and becoming more incoherent and at the same time feeling tired and fatigued without any stamina or energy. His oral intake has also been diminished and the patient was complaining of some shortness of breath in addition. He has not been infected with Covid 19 in the past and this is current infection. His symptoms started approximately 10 days ago and the patient tested positive approximately a week ago based on an outpatient. He has not received any treatment on outpatient basis. Patient is vaccinated for COVID-19 2 and the patient not been infected in the past.. Complains of total body pain, cough, shortness of breath.. The patient's is admitted for the same and currently she is hospitalized for Covid 19 infection and pneumonia. He has no focal neurological deficit and a CAT scan of the brain was negative. The chest x-ray showed no acute abnormalities. He has COPD. There is some mild increased interstitial markings bilaterally which could reflect bronchitis or limited Covid 19 related pneumonia changes. The patient is currently on 2 L of oxygen nasal cannula with pulse ox of 93% patient is running a low-grade fever. Also, his echoes at 10.1 with a hemoglobin of 14.6 and a platelet count of 146. D-dimer is at 0.6. Sodium is at 134 with a potassium level of 3.1. BUN is 16 with a creatinine of 0.4. Pro-calcitonin level is at 1.2. TSH 0.8. LDH level is at 117. On today's evaluation of 08/10/2023, seeing the patient for a follow-up. Slightly improved compared to yesterday. Still having issues with lethargy and weakness. No altered mentation at this point in time. No nausea and emesis. He has a congested cough as the patient has advanced COPD and is a chronic smoker. He remains on Decadron. Some elevation of blood sugar is noted and the patient's HbA1c level is at 9.6 indicating portal blood sugar control. The d-di tami is at 0.6. TSH 0.8. Pro-calcitonin level was interestingly elevated at 1.2. No clear indication for an underlying bacterial infection at this point in time. The patient remains on Lovenox for DVT prophylaxis. Home medications of his COPD remains on Symbicort and albuterol HFA [id number]. The patient is seen today 08/11/2023 in follow-up on the regular medical floor. He is currently resting comfortably in bed. Awake and alert in no acute distress. He is sitting up in bed. He is maintaining O2 saturations in the 90s on room air. His a dry nonproductive cough. White count 7.6. Hemoglobin 12.0. Platelets 207. Sodium 136. Potassium 4.2. Bicarb 27. BUN 24. Creatinine 0 .49. Glucose 108. AST 22. ALT 19. He is continued on Symbicort, Spiriva, albuterol, vitamin supplements. Maintained on Decadron. Lovenox for DVT prophylaxis. NicoDerm patch in place. Patient was reevaluated today on 08/12/70, patient had a downhill course overnight, and his oxygenation deteriorated, required placement on BiPAP, and 100% FiO2, and he had an increase in the work of breathing, hence the patient was transferred to the ICU and he remains on BiPAP 08/27/100%. Patient also had a worsening chest x-ray with worsening bilateral pneumonia right more so than left, he remains on Decadron, Lovenox, Zosyn, and he received 1 dose of Lasix 40 mg IV push but no significant improvement. And no significant urine output after the Lasix given. His IV fluid is 0.9 at 75 mL per hour, pro-calcitonin is elevated at 1.2. D-dimer is up to 2.11, and I'm recommending a CT angiogram of the chest on this patient. Follow-up ABG on BiPAP showed a pO2 of 128 pCO2 48 pH of 7.38. Considering his pro-calcitonin, patient is not a candidate for Baricitinib, and he is already out of the therapeutic window to start on Remdesivir. Considering his overall pulmonary status is marginal, I prefer to keep a close watch in the ICU. Reevaluated today on 08/13/23, patient remains in the ICU, remains on BiPAP /55% and I got him down to 50%. Patient remains on Decadron, Lovenox, Zosyn, his also on the COVID-19 cocktail. Slightly better today compared to yesterday, chest x-ray and CT angiogram of the chest clearly showed extensive bilateral pneumonia and consolidation. Clinically there is slight improvement, patient is hemodynamically stable, he is on IV fluid at 75 mL/h, has good urine output. And again his hemodynamics are normal. WBC count is 10.9 hemoglobin is 11.7 basic metabolic profile is normal renal profile is normal inflammatory markers including C-reactive protein and LDH was slightly elevated with pro- calcitonin also of 0.78, C-reactive protein of 26.7, and LDH of 188 Patient was reevaluated today on 08/14/patient remains in the ICU, remains on BiPAP 12/6/50%, remains on Lovenox, Decadron, and Zosyn. Clinically the patient stated that his feeling better chest x-ray is basically about the same patient's oxygenation is improving on 50% of BiPAP, hence I am considering transitioning the patient to airvo or high flow nasal cannula. In the meantime the patient's overall clinical status remains very marginal at best, and I prefer to keep him in the ICU for now. WBC count is 15.7 hemoglobin is 11.9 basic metabolic profile is normal Patient was reevaluated today on 08/11/2023, remains in the ICU on BiPAP 12/6/50%, patient remains on Decadron Zosyn Lovenox, clinically the patient is feeling better, chest x-ray is also showing slight improvement in his right lower lobe consolidation/WBC count is 12.9 hemoglobin 11.6 basic metabolic profile is normal and renal profile is normal. His diet was advanced, like to transition the patient to airvo if possible Objective - Vital Signs Vital signs: Vital Signs Temp 97.8 F 08/15/23 12:00 Pulse 65 08/15/23 12:00 Resp 19 08/15/23 12:00 BP 123/89 08/15/23 12:00 Pulse Ox 94 L 08/15/23 12:00 FiO2 60 08/15/23 12:00 Intake & Output 08/14/23 08/15/23 08/15/23 18:59 06:59 18:59 Intake Total 900 930 550 Output Total 780 725 265 Balance 120 205 285 Weight 97.6 kg 97.6 kg Intake: IV 900 900 550 .9NS 900 900 450 Piperacillin-Tazobactam 3 100 .375 gm In Sodium Chloride 0.9% 100 ml @ 25 mls/hr IVPB Q8HR [facility] Rx# :[id number] Oral 30 Output: Urine 780 725 265 Other: Voiding Method Indwelling Catheter Indwelling Catheter Indwelling Catheter - Exam GENERAL EXAM: Revealed a 68-year-old white male, on BiPAP, /50% HEAD: Normocephalic. EYES: Normal reaction of pupils, equal size. NOSE: Clear with pink turbinates. THROAT: No erythema or exudates. NECK: No masses, no JVD. CHEST: No chest wall deformity. LUNGS: Egophony noted at the right lower lobe and crackles heard over the right lung. CVS: S1 and S2 normal with no audible murmur, regular rhythm. ABDOMEN: No hepatosplenomegaly, normal bowel sounds, no guarding or rigidity. SKIN: No rashes CENTRAL NERVOUS SYSTEM: Alert and oriented 3 focal deficit EXTREMITIES: No clubbing, no edema, no cyanosis - Labs CBC & Chem 7: 08/15/23 05:52 08/15/23 05:52 Labs: Abnormal Lab Results - Last 24 Hours (Table) 08/14/23 08/14/23 08/15/23 Range/Units 16:27 21:08 02:45 WBC (3.8-10.6) k/uL RBC (4.30-5.90) m/uL Hgb (13.0-17.5) gm/dL Hct (39.0-53.0) % Neutrophils # (1.3-7.7) k/uL Lymphocytes # (1.0-4.8) k/uL Sodium (137-145) mmol/L BUN (9-20) mg/dL Creatinine (0.66-1.25) mg/dL Glucose (74-99) mg/dL POC Glucose (mg/dL) 232 H 245 H 190 H (70-110) mg/dL 08/15/23 08/15/23 08/15/23 Range/Units 05:52 05:52 06:36 WBC 12.9 H (3.8-10.6) k/uL RBC 3.91 L (4.30-5.90) m/uL Hgb 11.6 L (13.0-17.5) gm/dL Hct 34.7 L (39.0-53.0) % Neutrophils # 11.1 H (1.3-7.7) k/uL Lymphocytes # 0.6 L (1.0-4.8) k/uL Sodium 136 L (137-145) mmol/L BUN 32 H (9-20) mg/dL Creatinine 0.43 L (0.66-1.25) mg/dL Glucose 167 H (74-99) mg/dL POC Glucose (mg/dL) 158 H (70-110) mg/dL 08/15/23 Range/Units 11:03 WBC (3.8-10.6) k/uL RBC (4.30-5.90) m/uL Hgb (13.0-17.5) gm/dL Hct (39.0-53.0) % Neutrophils # (1.3-7.7) k/uL Lymphocytes # (1.0-4.8) k/uL Sodium (137-145) mmol/L BUN (9-20) mg/dL Creatinine (0.66-1.25) mg/dL Glucose (74-99) mg/dL POC Glucose (mg/dL) 187 H (70-110) mg/dL Assessment and Plan Assessment: Impression: Acute hypoxic respiratory failure Acute COVID-19 infection, possible pneumonia Possible superimposed bacterial pneumonia Underlying COPD based on his clinical history Type 2 diabetes Hypothyroidism Hypertension Dyslipidemia Recommendations: Transition patient to airvo Continue to monitor in the ICU Continue Decadron Continue Lovenox, continue Zosyn Continue GI prophylaxis Continue COVID-19 cocktail, including vitamin C, vitamin D, and zinc Will continue to follow. Prognosis remains guarded Time with Patient: Less than 30
[2023-08-15] MEDS ORDERED: MAGNESIUM SULFATE-D5W PMX 1 GM in DEXTROSE/WATER 1 100ML.BAG IVPB ONE (13:45)
[2023-08-15 16:22] LABS: Glucose,Whole Blood 390 mg/dL (70-110)
[2023-08-15 16:23] LABS: Glucose,Whole Blood 355 mg/dL (70-110)
[2023-08-15] MEDS: INSULIN DETEMIR (LEVEMIR) 100 UNIT/ML SYR SQ SCH (17:18)
[2023-08-15 20:13] LABS: Glucose,Whole Blood 313 mg/dL (70-110)
[2023-08-15] MEDS: ATORVASTATIN 20 MG TAB PO SCH (20:55)
[2023-08-15] MEDS: CITALOPRAM HYDROBROMIDE 20 MG TAB PO SCH (20:55)
[2023-08-15] MEDS: ASCORBIC ACID 500 MG TAB PO SCH (20:55)
[2023-08-16] MEDS: ALBUTEROL HFA INHALER INHALATION SCH ×6 (00:08→20:18)
[2023-08-16 02:29] LABS: Glucose,Whole Blood 265 mg/dL (70-110)
[2023-08-16] MEDS: ACETAMINOPHEN TAB 325 MG TAB PO PRN ×2 (03:08→21:18)
[2023-08-16] MEDS: SODIUM CHLORIDE 0.9% 1,000 ML IV SCH ×3 (05:13→17:08)
[2023-08-16 06:15] LABS: HCT 35.4 % (39.0-53.0); HGB 11.3 gm/dL (13.0-17.5); MCH 28.4 pg (25.0-35.0); Platelet Count 322 k/uL (150-450); RBC 3.98 m/uL (4.30-5.90); RDW 14.4 % (11.5-15.5); WBC 15.7 k/uL (3.8-10.6)
[2023-08-16 06:24] LABS: Glucose,Whole Blood 222 mg/dL (70-110)
[2023-08-16] MEDS: CHOLECALCIFEROL 125 MCG (5000 IU) TABLET PO SCH (06:33)
[2023-08-16] MEDS: carvediloL 12.5 MG TAB PO SCH ×2 (06:33→17:06)
[2023-08-16] MEDS: LORATADINE 10 MG TAB PO SCH (06:34)
[2023-08-16] MEDS: PANTOPRAZOLE 40 MG TABLET PO SCH (06:34)
[2023-08-16] MEDS: ASPIRIN 325 MG TAB PO SCH (06:34)
[2023-08-16] MEDS: MELOXICAM 7.5 MG TAB PO SCH (06:35)
[2023-08-16] MEDS: LEVOTHYROXINE 137 MCG TAB PO SCH (06:35)
[2023-08-16] MEDS: INSULIN ASPART (NovoLOG) 100 UNIT/ML VIAL SQ SCH ×4 (06:58→21:15)
[2023-08-16 06:59] LABS: African American GFR (CKD) >90 (>60 ml/min/1.73 sqM); Anion Gap 4 mmol/L; Blood Urea Nitrogen 21 mg/dL (9-20); Calcium 8.3 mg/dL (8.4-10.2); Carbon Dioxide 27 mmol/L (22-30); Chloride 102 mmol/L (98-107); Glucose 195 mg/dL (74-99); Non-African American GFR(CKD) >90 (>60 ml/min/1.73 sqM); Potassium 3.8 mmol/L (3.5-5.1); Sodium 133 mmol/L (137-145)
[2023-08-16] MEDS ORDERED: Potassium Replacement Protocol 1 EACH MISC MISCELLANE PRN (07:16)
--- NOTE | 2023-08-16 07:25 | XR ---
EXAMINATION TYPE: XR chest 1V portable DATE OF EXAM: 08/16/2023 HISTORY: Shortness of breath. COMPARISON: 08/15/2023 TECHNIQUE: Single view of the chest is submitted. FINDINGS: Demonstrated are scattered senescent parenchymal change. Patchy infiltrate right lower lobe. Remainder of the lungs are clear. The heart is stable. Hilar and mediastinal structures are within normal limits. Degenerative changes are seen of the dorsal spine. IMPRESSION: 1. Stable right lower lobe infiltrate.
[2023-08-16] MEDS: SYMBICORT 160-4.5 MCG INHALER INHALATION SCH ×2 (07:36→20:18)
[2023-08-16] MEDS: TIOTROPIUM 2.5 MCG INHALER INHALATION SCH (07:36)
[2023-08-16] MEDS ORDERED: Magnesium Replacement Protocol 1 EACH MISC MISCELLANE PRN (07:39)
[2023-08-16] MEDS ORDERED: MAGNESIUM SULFATE-D5W PMX 1 GM in DEXTROSE/WATER 1 100ML.BAG IVPB ONE (07:39)
[2023-08-16] MEDS: INSULIN DETEMIR (LEVEMIR) 100 UNIT/ML SYR SQ SCH ×2 (08:26→21:15)
[2023-08-16] MEDS: PIPERACILLIN-TAZOBACTAM 3.375 GM in SODIUM CHLORIDE 0.9% 100 ML IVPB SCH ×2 (08:26→17:06)
[2023-08-16] MEDS: NICOTINE 21MG/24HR PATCH TRANSDERM SCH (08:27)
[2023-08-16] MEDS: ZINC SULFATE 220 MG CAP PO SCH (08:27)
[2023-08-16] MEDS: guaiFENesin 600 MG TABLET.ER PO SCH ×4 (08:27→21:15)
[2023-08-16] MEDS: MULTIVITAMINS, THERA 1 EACH TAB PO SCH (08:27)
[2023-08-16] MEDS: ENOXAPARIN 40 MG/0.4 ML SYRINGE SQ SCH (08:27)
[2023-08-16] MEDS: buPROPion XL 150 MG TAB.ER.24H PO SCH ×2 (08:28→21:40)
[2023-08-16] MEDS: dexAMETHasone 2 MG TAB PO SCH (08:29)
[2023-08-16] MEDS ORDERED: POTASSIUM CHLORIDE ER 20 MEQ TAB.ER PO SCH (09:00)
[2023-08-16 11:36] LABS: Glucose,Whole Blood 254 mg/dL (70-110)
--- NOTE | 2023-08-16 12:56 | P.PN ---
Subjective Progress Note Date: 08/16/23 Principal diagnosis: Acute COVID-19 infection/pneumonia Patient is 68-year-old male presents emergency department for altered mental status. Patient has been positive for COVID-19 for 7 days. He's been sick and weak for the last 2 weeks. Currently patient is brought in by EMS after his family member called for concerns of altered mental status. . The patient been feeling lethargic, weak, and becoming more incoherent and at the same time feeling tired and fatigued without any stamina or energy. His oral intake has also been diminished and the patient was complaining of some shortness of breath in addition. He has not been infected with Covid 19 in the past and this is current infection. His symptoms started approximately 10 days ago and the patient tested positive approximately a week ago based on an outpatient. He has not received any treatment on outpatient basis. Patient is vaccinated for COVID-19 2 and the patient not been infected in the past.. Complains of total body pain, cough, shortness of breath.. The patient's is admitted for the same and currently she is hospitalized for Covid 19 infection and pneumonia. He has no focal neurological deficit and a CAT scan of the brain was negative. The chest x-ray showed no acute abnormalities. He has COPD. There is some mild increased interstitial markings bilaterally which could reflect bronchitis or limited Covid 19 related pneumonia changes. The patient is currently on 2 L of oxygen nasal cannula with pulse ox of 93% patient is running a low-grade fever. Also, his echoes at 10.1 with a hemoglobin of 14.6 and a platelet count of 146. D-dimer is at 0.6. Sodium is at 134 with a potassium level of 3.1. BUN is 16 with a creatinine of 0.4. Pro-calcitonin level is at 1.2. TSH 0.8. LDH level is at 117. On today's evaluation of 08/10/2023, seeing the patient for a follow-up. Slightly improved compared to yesterday. Still having issues with lethargy and weakness. No altered mentation at this point in time. No nausea and emesis. He has a congested cough as the patient has advanced COPD and is a chronic smoker. He remains on Decadron. Some elevation of blood sugar is noted and the patient's HbA1c level is at 9.6 indicating portal blood sugar control. The d-di tami is at 0.6. TSH 0.8. Pro-calcitonin level was interestingly elevated at 1.2. No clear indication for an underlying bacterial infection at this point in time. The patient remains on Lovenox for DVT prophylaxis. Home medications of his COPD remains on Symbicort and albuterol HFA [id number]. The patient is seen today 08/11/2023 in follow-up on the regular medical floor. He is currently resting comfortably in bed. Awake and alert in no acute distress. He is sitting up in bed. He is maintaining O2 saturations in the 90s on room air. His a dry nonproductive cough. White count 7.6. Hemoglobin 12.0. Platelets 207. Sodium 136. Potassium 4.2. Bicarb 27. BUN 24. Creatinine 0 .49. Glucose 108. AST 22. ALT 19. He is continued on Symbicort, Spiriva, albuterol, vitamin supplements. Maintained on Decadron. Lovenox for DVT prophylaxis. NicoDerm patch in place. Patient was reevaluated today on 08/12/70, patient had a downhill course overnight, and his oxygenation deteriorated, required placement on BiPAP, and 100% FiO2, and he had an increase in the work of breathing, hence the patient was transferred to the ICU and he remains on BiPAP 08/27/100%. Patient also had a worsening chest x-ray with worsening bilateral pneumonia right more so than left, he remains on Decadron, Lovenox, Zosyn, and he received 1 dose of Lasix 40 mg IV push but no significant improvement. And no significant urine output after the Lasix given. His IV fluid is 0.9 at 75 mL per hour, pro-calcitonin is elevated at 1.2. D-dimer is up to 2.11, and I'm recommending a CT angiogram of the chest on this patient. Follow-up ABG on BiPAP showed a pO2 of 128 pCO2 48 pH of 7.38. Considering his pro-calcitonin, patient is not a candidate for Baricitinib, and he is already out of the therapeutic window to start on Remdesivir. Considering his overall pulmonary status is marginal, I prefer to keep a close watch in the ICU. Reevaluated today on 08/13/23, patient remains in the ICU, remains on BiPAP 12/6/55% and I got him down to 50%. Patient remains on Decadron, Lovenox, Zosyn, his also on the COVID-19 cocktail. Slightly better today compared to yesterday, chest x-ray and CT angiogram of the chest clearly showed extensive bilateral pneumonia and consolidation. Clinically there is slight improvement, patient is hemodynamically stable, he is on IV fluid at 75 mL/h, has good urine output. And again his hemodynamics are normal. WBC count is 10.9 hemoglobin is 11.7 basic metabolic profile is normal renal profile is normal inflammatory markers including C-reactive protein and LDH was slightly elevated with pro- calcitonin also of 0.78, C-reactive protein of 26.7, and LDH of 188 Patient was reevaluated today on 08/14/patient remains in the ICU, remains on BiPAP 12/6/50%, remains on Lovenox, Decadron, and Zosyn. Clinically the patient stated that his feeling better chest x-ray is basically about the same patient's oxygenation is improving on 50% of BiPAP, hence I am considering transitioning the patient to airvo or high flow nasal cannula. In the meantime the patient's overall clinical status remains very marginal at best, and I prefer to keep him in the ICU for now. WBC count is 15.7 hemoglobin is 11.9 basic metabolic profile is normal Patient was reevaluated today on 08/15/2023, remains in the ICU on BiPAP 12/6/50%, patient remains on Decadron Zosyn Lovenox, clinically the patient is feeling better, chest x-ray is also showing slight improvement in his right lower lobe consolidation/WBC count is 12.9 hemoglobin 11.6 basic metabolic profile is normal and renal profile is normal. His diet was advanced, like to transition the patient to airvo if possible Reevaluated today on 08/16/23, remains in the ICU, presently on airvo 60% FiO2 and 60 L flow. O2 saturation is in the mid 90s. Patient remains on Lovenox, Decadron, and Zosyn. Patient tells me that his feeling better, chest x-ray is showing slight improvement, definitely not worse. Hence I plan to transfer the patient out of the ICU to a regular medical floor today. Patient is steadily im proving. WBC count is 15.7 hemoglobin 11.3 basic metabolic profile is normal LDH is 188 improving and C-reactive protein is 5, also improving Objective - Vital Signs Vital signs: Vital Signs Temp 97.9 F 08/16/23 12:00 Pulse 72 08/16/23 12:00 Resp 24 08/16/23 12:00 BP 128/88 08/16/23 12:00 Pulse Ox 92 L 08/16/23 12:00 FiO2 60 08/16/23 12:00 Intake & Output 08/15/23 08/16/23 08/16/23 18:59 06:59 18:59 Intake Total 1200 1480 550 Output Total 1015 1075 600 Balance 185 405 -50 Weight 97.6 kg 96.5 kg Intake: IV 1100 1000 550 .9NS 900 900 450 Piperacillin-Tazobactam 3 200 100 100 .375 gm In Sodium Chloride 0.9% 100 ml @ 25 mls/hr IVPB Q8HR [facility] Rx# :[id number] Intake, IV Titration 100 Amount Magnesium Sulfate-D5w Pmx 100 1 gm In Dextrose/Water 1 100ml.bag @ 100 mls/hr IVPB ONCE ONE Rx#: [id number] Oral 480 Output: Urine 1015 1075 600 Other: Voiding Method Indwelling Catheter Indwelling Catheter Indwelling Catheter - Exam GENERAL EXAM: Revealed a 68-year-old white male, on airvo 60%/60 L HEAD: Normocephalic. EYES: Normal reaction of pupils, equal size. NOSE: Clear with pink turbinates. THROAT: No erythema or exudates. NECK: No masses, no JVD. CHEST: No chest wall deformity. LUNGS: Continues to have significant crackles and rhonchi at the right base CVS: S1 and S2 normal with no audible murmur, regular rhythm. ABDOMEN: No hepatosplenomegaly, normal bowel sounds, no guarding or rigidity. SKIN: No rashes CENTRAL NERVOUS SYSTEM: Alert and oriented 3 focal deficit EXTREMITIES: No clubbing, no edema, no cyanosis - Labs CBC & Chem 7: 08/16/23 05:42 08/16/23 05:42 Labs: Abnormal Lab Results - Last 24 Hours (Table) 08/15/23 08/15/23 08/15/23 Range/Units 16:19 16:21 20:12 WBC (3.8-10.6) k/uL RBC (4.30-5.90) m/uL Hgb (13.0-17.5) gm/dL Hct (39.0-53.0) % Sodium (137-145) mmol/L BUN (9-20) mg/dL Creatinine (0.66-1.25) mg/dL Glucose (74-99) mg/dL POC Glucose (mg/dL) 390 H 355 H 313 H (70-110) mg/dL Calcium (8.4-10.2) mg/dL C-Reactive Protein (<1.0) mg/dL 08/16/23 08/16/23 08/16/23 Range/Units 02:27 05:42 05:42 WBC 15.7 H (3.8-10.6) k/uL RBC 3.98 L (4.30-5.90) m/uL Hgb 11.3 L (13.0-17.5) gm/dL Hct 35.4 L (39.0-53.0) % Sodium 133 L (137-145) mmol/L BUN 21 H (9-20) mg/dL Creatinine 0.40 L (0.66-1.25) mg/dL Glucose 195 H (74-99) mg/dL POC Glucose (mg/dL) 265 H (70-110) mg/dL Calcium 8.3 L (8.4-10.2) mg/dL C-Reactive Protein (<1.0) mg/dL 08/16/23 08/16/23 08/16/23 Range/Units 05:42 06:22 11:34 WBC (3.8-10.6) k/uL RBC (4.30-5.90) m/uL Hgb (13.0-17.5) gm/dL Hct (39.0-53.0) % Sodium (137-145) mmol/L BUN (9-20) mg/dL Creatinine (0.66-1.25) mg/dL Glucose (74-99) mg/dL POC Glucose (mg/dL) 222 H 254 H (70-110) mg/dL Calcium (8.4-10.2) mg/dL C-Reactive Protein 5.0 H (<1.0) mg/dL Assessment and Plan Assessment: Impression: Acute hypoxic respiratory failure Acute COVID-19 pneumonia Possible superimposed bacterial pneumonia, considering elevated pro calcitonin level History of COPD, not active Type 2 diabetes Hypothyroidism Hypertension Dyslipidemia Recommendations: Continue airvo and titrate FiO2 accordingly continue to monitor flow accordingly Transfer to a regular medical floor Continue Decadron Continue Lovenox, continue Zosyn Continue GI prophylaxis Continue COVID-19 cocktail Will continue to follow. Prognosis remains guarded Time with Patient: Less than 30
--- NOTE | 2023-08-16 14:37 | P.PN ---
Subjective Progress Note Date: 08/16/23 Patient today was a rapid response for worsening respiratory failure ended up on a 100% nonrebreather. Had a chest x-ray done which reveals a small right-sided pleural effusion and received a dose of IV Lasix. Was transferred to the intensive care unit and was placed on a 100% FiO2 BiPAP 08/27. Noted the patient tested positive for Covid 4 days ago in the hospital but has been having symptoms for 10+ days outpatient and had a positive test outpatient as well. D- Dimer is elevated at 2.11 which is increased from 0.60 on admission. He has been started on IV zosyn empirically as well as PO decadron. 08/13/2023 Patient is evaluated in the intensive care unit. He remains on BiPAP currently at 55% fio2 08/27. CT angiography was completed yesterday which reveals no evidence of pulmonary embolism, there is bibasilar and right perihilar airspace consolidation. Findings are likely representing pneumonia and are new from prior. Lymphadenopathy throughout the mediastinum likely secondary to infectious process. Follow up chest xray today reveals ongoing extensive bilateral lower lung airspace disease right greater than left. Procalcitonin is improved at 0.78. Levemir as discontinued yesterday and blood glucose has improved. Remains on oral decadron, IV zosyn, albuterol inhaler, and supportive care. 08/14/2023 Patient remains in intensive care unit. Currently on BiPAP with 50% FiO2. Chest xray today showing stable infiltrates. White count 15. Renal function normal. Blood glucose improved. Patient remains on empiric antibiotics with IV zosyn. On oral decadron and supportive care. 08/15. Patient seen and examined. Patient continues to be on heated high flow. States he feels better. Sitting upright in the chair. 08/16. Patient seen and examined. Currently on airvo 60% FiO2 and 60 L flow. Sitting upright in the chair. Denies any shortness of breath at rest. Denies any nausea or vomiting. REVIEW OF SYSTEMS: CONSTITUTIONAL: No fever, no malaise,. CARDIOVASCULAR: No chest pain, no palpitations, no syncope. PULMONARY: No shortness of breath, no cough, GASTROINTESTINAL: No diarrhea, no nausea, no vomiting, no abdominal pain. NEUROLOGICAL: No headaches, no weakness, PHYSICAL EXAMINATION: GENERAL: The patient is alert and oriented x3, chronically ill-looking HEENT: Pupils are round and equally reacting to light. EOMI. No scleral icterus. No conjunctival pallor. Normocephalic, atraumatic. No pharyngeal erythema. No thyromegaly. CARDIOVASCULAR: S1 and S2 present. No murmurs, rubs, or gallops. PULMONARY: Coarse breath sounds bilaterally, expiratory rhonchi audible ABDOMEN: Soft, nontender, nondistended, normoactive bowel sounds. No palpable organomegaly. MUSCULOSKELETAL: No joint swelling or deformity. EXTREMITIES: No cyanosis, clubbing, or pedal edema. NEUROLOGICAL: Gross neurological examination did not reveal any focal deficits. SKIN: No rashes. Assessment and plan Acute covid 19 infection with underlying pneumonia and sepsis with elevated inflammatory markers. Acute hypoxic respiratory failure secondary to acute covid infection and COPD exacerbation mild COPD exacerbation Elevated D Dimer with no evidence of pulmonary embolism. Chronic nicotine use Diabetes Mellitus type 2 HX of coronary artery disease and prior cardiac stenting Gastroesophageal reflux disease Hypthyroidism Hypertension currently hypotensive Hyperlipidemia Monitor vital signs Monitor CBC Monitor CMP Continue telemetry monitoring Encourage use of incentive spirometer Aggressive bronchopulmonary hygiene Continue oxygen supplementation Continues of BiPAP as needed Continue decadron Continue IV zosyn continue with sliding scale insulin and monitor blood glucose ACHS Critical care following Labs and medication were reviewed.. Continue same treatment. Continue with sym ptomatic treatment. Resume home medication. Monitor labs and vitals. DVT and GI prophylaxis. Further recommendations as per clinical course of the patient Dictation was produced using [employer] dictation software. please excuse any grammatical, word or spelling errors. Objective - Vital Signs Vital signs: Vital Signs Temp 97.9 F 08/16/23 12:00 Pulse 74 08/16/23 14:00 Resp 19 08/16/23 14:00 BP 123/96 08/16/23 14:00 Pulse Ox 95 08/16/23 14:00 FiO2 60 08/16/23 12:00 Intake & Output 08/15/23 08/16/23 08/16/23 18:59 06:59 18:59 Intake Total 1200 1480 700 Output Total 1015 1075 760 Balance 185 405 -60 Weight 97.6 kg 96.5 kg Intake: IV 1100 1000 700 .9NS 900 900 600 Piperacillin-Tazobactam 3 200 100 100 .375 gm In Sodium Chloride 0.9% 100 ml @ 25 mls/hr IVPB Q8HR [facility] Rx# :[id number] Intake, IV Titration 100 Amount Magnesium Sulfate-D5w Pmx 100 1 gm In Dextrose/Water 1 100ml.bag @ 100 mls/hr IVPB ONCE ONE Rx#: [id number] Oral 480 Output: Urine 1015 1075 760 Other: Voiding Method Indwelling Catheter Indwelling Catheter Indwelling Catheter - Labs CBC & Chem 7: 08/16/23 05:42 08/16/23 05:42 Labs: Abnormal Lab Results - Last 24 Hours (Table) 08/15/23 08/15/23 08/15/23 Range/Units 16:19 16:21 20:12 WBC (3.8-10.6) k/uL RBC (4.30-5.90) m/uL Hgb (13.0-17.5) gm/dL Hct (39.0-53.0) % Sodium (137-145) mmol/L BUN (9-20) mg/dL Creatinine (0.66-1.25) mg/dL Glucose (74-99) mg/dL POC Glucose (mg/dL) 390 H 355 H 313 H (70-110) mg/dL Calcium (8.4-10.2) mg/dL C-Reactive Protein (<1.0) mg/dL 08/16/23 08/16/23 08/16/23 Range/Units 02:27 05:42 05:42 WBC 15.7 H (3.8-10.6) k/uL RBC 3.98 L (4.30-5.90) m/uL Hgb 11.3 L (13.0-17.5) gm/dL Hct 35.4 L (39.0-53.0) % Sodium 133 L (137-145) mmol/L BUN 21 H (9-20) mg/dL Creatinine 0.40 L (0.66-1.25) mg/dL Glucose 195 H (74-99) mg/dL POC Glucose (mg/dL) 265 H (70-110) mg/dL Calcium 8.3 L (8.4-10.2) mg/dL C-Reactive Protein (<1.0) mg/dL 11/25/23 11/25/23 11/25/23 Range/Units 05:42 06:22 11:34 WBC (3.8-10.6) k/uL RBC (4.30-5.90) m/uL Hgb (13.0-17.5) gm/dL Hct (39.0-53.0) % Sodium (137-145) mmol/L BUN (9-20) mg/dL Creatinine (0.66-1.25) mg/dL Glucose (74-99) mg/dL POC Glucose (mg/dL) 222 H 254 H (70-110) mg/dL Calcium (8.4-10.2) mg/dL C-Reactive Protein 5.0 H (<1.0) mg/dL
[2023-08-16] MEDS: metFORMIN 500 MG TAB PO SCH (15:31)
[2023-08-16 16:42] LABS: Glucose,Whole Blood 331 mg/dL (70-110)
[2023-08-16 20:28] LABS: Glucose,Whole Blood 339 mg/dL (70-110)
[2023-08-16] MEDS: ASCORBIC ACID 500 MG TAB PO SCH (21:14)
[2023-08-16] MEDS: ATORVASTATIN 20 MG TAB PO SCH (21:15)
[2023-08-16] MEDS: CITALOPRAM HYDROBROMIDE 20 MG TAB PO SCH (21:15)
[2023-08-17] MEDS: PIPERACILLIN-TAZOBACTAM 3.375 GM in SODIUM CHLORIDE 0.9% 100 ML IVPB SCH ×4 (00:25→23:50)
[2023-08-17] MEDS: ACETAMINOPHEN TAB 325 MG TAB PO PRN ×3 (04:38→21:58)
[2023-08-17 06:13] LABS: Glucose,Whole Blood 138 mg/dL (70-110)
[2023-08-17] MEDS: LORATADINE 10 MG TAB PO SCH (06:43)
[2023-08-17] MEDS: CHOLECALCIFEROL 125 MCG (5000 IU) TABLET PO SCH (06:43)
[2023-08-17] MEDS: LEVOTHYROXINE 137 MCG TAB PO SCH (06:43)
[2023-08-17] MEDS: MELOXICAM 7.5 MG TAB PO SCH (06:43)
[2023-08-17] MEDS: PANTOPRAZOLE 40 MG TABLET PO SCH (06:43)
[2023-08-17] MEDS: ASPIRIN 325 MG TAB PO SCH (06:43)
[2023-08-17] MEDS: carvediloL 12.5 MG TAB PO SCH ×2 (06:43→17:48)
[2023-08-17] MEDS: SODIUM CHLORIDE 0.9% 1,000 ML IV SCH ×2 (08:31)
[2023-08-17] MEDS: INSULIN ASPART (NovoLOG) 100 UNIT/ML VIAL SQ SCH ×4 (08:32→21:59)
[2023-08-17] MEDS: ZINC SULFATE 220 MG CAP PO SCH (08:38)
[2023-08-17] MEDS: MULTIVITAMINS, THERA 1 EACH TAB PO SCH (08:38)
[2023-08-17] MEDS: dexAMETHasone 2 MG TAB PO SCH (08:38)
[2023-08-17] MEDS: buPROPion XL 150 MG TAB.ER.24H PO SCH ×2 (08:38→21:59)
[2023-08-17] MEDS: ENOXAPARIN 40 MG/0.4 ML SYRINGE SQ SCH (08:38)
[2023-08-17] MEDS: guaiFENesin 600 MG TABLET.ER PO SCH ×4 (08:38→21:59)
[2023-08-17] MEDS: INSULIN DETEMIR (LEVEMIR) 100 UNIT/ML SYR SQ SCH ×2 (08:39→21:59)
[2023-08-17] MEDS: NICOTINE 21MG/24HR PATCH TRANSDERM SCH (08:39)
[2023-08-17] MEDS: ALBUTEROL HFA INHALER INHALATION SCH ×4 (08:47→20:11)
[2023-08-17] MEDS: SYMBICORT 160-4.5 MCG INHALER INHALATION SCH ×2 (08:48→20:11)
[2023-08-17] MEDS: TIOTROPIUM 2.5 MCG INHALER INHALATION SCH (08:48)
[2023-08-17 11:02] LABS: Glucose,Whole Blood 262 mg/dL (70-110)
--- NOTE | 2023-08-17 13:05 | P.PN ---
Subjective Progress Note Date: 08/17/23 Patient today was a rapid response for worsening respiratory failure ended up on a 100% nonrebreather. Had a chest x-ray done which reveals a small right-sided pleural effusion and received a dose of IV Lasix. Was transferred to the intensive care unit and was placed on a 100% FiO2 BiPAP 08/27. Noted the patient tested positive for Covid 4 days ago in the hospital but has been having symptoms for 10+ days outpatient and had a positive test outpatient as well. D- Dimer is elevated at 2.11 which is increased from 0.60 on admission. He has been started on IV zosyn empirically as well as PO decadron. 08/13/2023 Patient is evaluated in the intensive care unit. He remains on BiPAP currently at 55% fio2 08/27. CT angiography was completed yesterday which reveals no evidence of pulmonary embolism, there is bibasilar and right perihilar airspace consolidation. Findings are likely representing pneumonia and are new from prior. Lymphadenopathy throughout the mediastinum likely secondary to infectious process. Follow up chest xray today reveals ongoing extensive bilateral lower lung airspace disease right greater than left. Procalcitonin is improved at 0.78. Levemir as discontinued yesterday and blood glucose has improved. Remains on oral decadron, IV zosyn, albuterol inhaler, and supportive care. 08/14/2023 Patient remains in intensive care unit. Currently on BiPAP with 50% FiO2. Chest xray today showing stable infiltrates. White count 15. Renal function normal. Blood glucose improved. Patient remains on empiric antibiotics with IV zosyn. On oral decadron and supportive care. 08/15. Patient seen and examined. Patient continues to be on heated high flow. States he feels better. Sitting upright in the chair. 08/16. Patient seen and examined. Currently on airvo 60% FiO2 and 60 L flow. Sitting upright in the chair. Denies any shortness of breath at rest. Denies any nausea or vomiting. 08/17. Patient seen and examined. Patient was also out of ICU last night. Currently on AIRvo at 60 L and FiO2 48%. Denies any conversational dyspnea, denies shortness of breath at rest. Sister at the bedside REVIEW OF SYSTEMS: CONSTITUTIONAL: No fever, no malaise,. CARDIOVASCULAR: No chest pain, no palpitations, no syncope. PULMONARY: No shortness of breath, no cough, GASTROINTESTINAL: No diarrhea, no nausea, no vomiting, no abdominal pain. NEUROLOGICAL: No headaches, no weakness, PHYSICAL EXAMINATION: GENERAL: The patient is alert and oriented x3, chronically ill-looking HEENT: Pupils are round and equally reacting to light. EOMI. No scleral icterus. No conjunctival pallor. Normocephalic, atraumatic. No pharyngeal erythema. No thyromegaly. CARDIOVASCULAR: S1 and S2 present. No murmurs, rubs, or gallops. PULMONARY: Coarse breath sounds bilaterally, expiratory rhonchi audible ABDOMEN: Soft, nontender, nondistended, normoactive bowel sounds. No palpable organomegaly. MUSCULOSKELETAL: No joint swelling or deformity. EXTREMITIES: No cyanosis, clubbing, or pedal edema. NEUROLOGICAL: Gross neurological examination did not reveal any focal deficits. SKIN: No rashes. Assessment and plan Acute covid 19 infection with underlying pneumonia and sepsis with elevated inflammatory markers. Acute hypoxic respiratory failure secondary to acute covid infection and COPD exacerbation mild COPD exacerbation Elevated D Dimer with no evidence of pulmonary embolism. Chronic nicotine use Diabetes Mellitus type 2 HX of coronary artery disease and prior cardiac stenting Gastroesophageal reflux disease Hypthyroidism Hypertension currently hypotensive Hyperlipidemia Monitor vital signs Monitor CBC Monitor CMP Continue telemetry monitoring Encourage use of incentive spirometer Aggressive bronchopulmonary hygiene Continue oxygen supplementation Continue decadron Continue IV zosyn Continue aspirin and Lipitor Continue Coreg Continue Synthroid continue with sliding scale insulin and monitor blood glucose ACHS Critical care following Labs and medication were reviewed.. Continue same treatment. Continue with symptomatic treatment. Resume home medication. Monitor labs and vitals. DVT and GI prophylaxis. Further recommendations as per clinical course of the p atient Dictation was produced using [employer] dictation software. please excuse any grammatical, word or spelling errors. Objective - Vital Signs Vital signs: Vital Signs Temp 96.5 F L 08/17/23 07:21 Pulse 55 L 08/17/23 07:21 Resp 20 08/16/23 16:16 BP 151/83 08/17/23 07:21 Pulse Ox 91 L 08/17/23 08:54 FiO2 48 08/17/23 08:54 Intake & Output 08/16/23 08/17/23 08/17/23 18:59 06:59 18:59 Intake Total 775 Output Total 2335 2300 Balance -1560 -2300 Intake: IV 775 .9NS 675 Piperacillin-Tazobactam 3 100 .375 gm In Sodium Chloride 0.9% 100 ml @ 25 mls/hr IVPB Q8HR [facility] Rx# :[id number] Output: Urine 2335 2300 Other: Voiding Method Indwelling Catheter - Labs CBC & Chem 7: 08/16/23 05:42 08/16/23 05:42 Labs: Abnormal Lab Results - Last 24 Hours (Table) 08/16/23 08/16/23 08/16/23 Range/Units 05:42 11:34 16:40 POC Glucose (mg/dL) 254 H 331 H (70-110) mg/dL C-Reactive Protein 5.0 H (<1.0) mg/dL 08/16/23 08/17/23 Range/Units 20:26 06:11 POC Glucose (mg/dL) 339 H 138 H (70-110) mg/dL C-Reactive Protein (<1.0) mg/dL
--- NOTE | 2023-08-17 14:24 | P.PN ---
Subjective Progress Note Date: 08/17/23 Patient is 68-year-old male presents emergency department for altered mental status. Patient has been positive for COVID-19 for 7 days. He's been sick and weak for the last 2 weeks. Currently patient is brought in by EMS after his family member called for concerns of altered mental status. . The patient been feeling lethargic, weak, and becoming more incoherent and at the same time feeling tired and fatigued without any stamina or energy. His oral intake has also been diminished and the patient was complaining of some shortness of breath in addition. He has not been infected with Covid 19 in the past and this is current infection. His symptoms started approximately 10 days ago and the melinda ent tested positive approximately a week ago based on an outpatient. He has not received any treatment on outpatient basis. Patient is vaccinated for COVID-19 2 and the patient not been infected in the past.. Complains of total body pain, cough, shortness of breath.. The patient's is admitted for the same and currently she is hospitalized for Covid 19 infection and pneumonia. He has no focal neurological deficit and a CAT scan of the brain was negative. The chest x-ray showed no acute abnormalities. He has COPD. There is some mild increased interstitial markings bilaterally which could reflect bronchitis or limited Covid 19 related pneumonia changes. The patient is currently on 2 L of oxygen nasal cannula with pulse ox of 93% patient is running a low-grade fever. Also, his echoes at 10.1 with a hemoglobin of 14.6 and a platelet count of 146. D-dimer is at 0.6. Sodium is at 134 with a potassium level of 3.1. BUN is 16 with a creatinine of 0.4. Pro-calcitonin level is at 1.2. TSH 0.8. LDH level is at 117. On today's evaluation of 08/10/2023, seeing the patient for a follow-up. Slightly improved compared to yesterday. Still having issues with lethargy and weakness. No altered mentation at this point in time. No nausea and emesis. He has a congested cough as the patient has advanced COPD and is a chronic smoker. He remains on Decadron. Some elevation of blood sugar is noted and the patient's HbA1c level is at 9.6 indicating portal blood sugar control. The d- dimer is at 0.6. TSH 0.8. Pro-calcitonin level was interestingly elevated at 1.2. No clear indication for an underlying bacterial infection at this point in time. The patient remains on Lovenox for DVT prophylaxis. Home medications of his COPD remains on Symbicort and albuterol HFA [id number]. The patient is seen today 08/11/2023 in follow-up on the regular medical floor. He is currently resting comfortably in bed. Awake and alert in no acute distress. He is sitting up in bed. He is maintaining O2 saturations in the 90s on room air. His a dry nonproductive cough. White count 7.6. Hemoglobin 12.0. Platelets 207. Sodium 136. Potassium 4.2. Bicarb 27. BUN 24. Creatinine 0.49. Glucose 108. AST 22. ALT 19. He is continued on Symbicort, Spiriva, albuterol, vitamin supplements. Maintained on Decadron. Lovenox for DVT prophylaxis. NicoDerm patch in place. The patient is seen today 08/17/2023 in follow-up on the regular medical floor. He was transferred out of the intensive care unit yesterday. He is sitting up in a chair. He is awake and alert in no acute distress. He's afebrile. Hemodynamically stable. He is on AirVo hypo-oxygen at 60 L and 50% FiO2. He remains on Zosyn. Continued on Decadron and Lovenox. Continued on vitamin lui pplements. Remains on albuterol, Symbicort, Spiriva. NicoDerm patch in place. Blood sugar 262. Calcium 1.9. Objective - Vital Signs Vital signs: Vital Signs Temp 98.3 F 08/17/23 13:07 Pulse 78 08/17/23 13:07 Resp 19 08/17/23 13:07 BP 137/84 08/17/23 13:07 Pulse Ox 92 L 08/17/23 13:07 FiO2 48 08/17/23 11:58 Intake & Output 08/16/23 08/17/23 08/17/23 18:59 06:59 18:59 Intake Total 775 250 Output Total 2335 2300 1000 Balance -1560 2300 -750 Intake: IV 775 .9NS 675 Piperacillin-Tazobactam 3 100 .375 gm In Sodium Chloride 0.9% 100 ml @ 25 mls/hr IVPB Q8HR [facility] [place] Rx# :[id number] Oral 250 Output: Urine 2335 2300 1000 Other: Voiding Method Indwelling Catheter Indwelling Catheter - Exam GENERAL EXAM: Alert, alert 68-year-old male, a AirVo high flow oxygen, in no apparent distress. HEAD: Normocephalic. EYES: Normal reaction of pupils, equal size. NOSE: Clear with pink turbinates. THROAT: No erythema or exudates. NECK: No masses, no JVD. CHEST: No chest wall deformity. LUNGS: Equal air entry with crackles in the bilateral bases. CVS: S1 and S2 normal with no audible murmur, regular rhythm. ABDOMEN: No hepatosplenomegaly, normal bowel sounds, no guarding or rigidity. SPINE: No scoliosis or deformity SKIN: No rashes CENTRAL NERVOUS SYSTEM: No focal deficits, tone is normal in all 4 extremities. EXTREMITIES: There is no peripheral edema. No clubbing, no cyanosis. Peripheral pulses are intact. - Labs CBC & Chem 7: 08/16/23 05:42 08/16/23 05:42 Labs: Abnormal Lab Results - Last 24 Hours (Table) 08/16/23 08/16/23 08/17/23 Range/Units 16:40 20:26 06:11 POC Glucose (mg/dL) 331 H 339 H 138 H (70-110) mg/dL 08/17/23 Range/Units 11:00 POC Glucose (mg/dL) 262 H (70-110) mg/dL Assessment and Plan Assessment: Covid 19 infection. Symptoms started over 10 days ago and the patient tested positive over a week ago on an outpatient basis. The diagnosis was confirmed here in the hospital. His is admitted for the same. The patient may have a limited Covid 19 related pneumonia based on chest x-ray findings. Patient also has a mild hypoxic respiratory failure addition to various other constitutional symptoms. The patient has been vaccinated 2 without any boosters. This is his first infection with Covid 19 Acute hypoxic respiratory failure injury to above and suspected superimposed bacterial pneumonia with elevated pro calcitonin, currently on AirVo high flow oxygen remains on Zosyn COPD and the patient smokes up to 2 pack of cigarettes a day with a component of COPD exacerbation Generalized weakness and lethargy and fatigue along with some altered level of consciousness, with a negative CAT scan of the brain and the patient is improving. D-dimer is at low Diabetes mellitus type 2, poorly controlled and outpatient basis with an elevated HbA1c level and the patient is currently on Levemir insulin 24 units and a sliding scale coverage. Hypothyroidism Hypertension Hyperlipidemia Plan: The patient was seen and evaluated Labs and medications reviewed Continue Zosyn, bronchodilators Continue Decadron, Lovenox Continue vitamin supplements Follow up chest x-ray in a.m. Titrate the FiO2 as tolerated We will continue to follow I have personally seen and examined the patient, performed the documentation and the assessment and plan as written. Number of minutes spent on the visit: 10.
[2023-08-17 17:16] LABS: Glucose,Whole Blood 315 mg/dL (70-110)
[2023-08-17 20:54] LABS: Glucose,Whole Blood 300 mg/dL (70-110)
[2023-08-17] MEDS: CITALOPRAM HYDROBROMIDE 20 MG TAB PO SCH (21:59)
[2023-08-17] MEDS: ASCORBIC ACID 500 MG TAB PO SCH (21:59)
[2023-08-17] MEDS: ATORVASTATIN 20 MG TAB PO SCH (21:59)
[2023-08-18] MEDS: SODIUM CHLORIDE 0.9% 1,000 ML IV SCH (03:15)
[2023-08-18] MEDS: ACETAMINOPHEN TAB 325 MG TAB PO PRN ×3 (04:27→22:30)
[2023-08-18 06:08] LABS: Glucose,Whole Blood 166 mg/dL (70-110)
[2023-08-18] MEDS: MELOXICAM 7.5 MG TAB PO SCH (06:36)
[2023-08-18] MEDS: CHOLECALCIFEROL 125 MCG (5000 IU) TABLET PO SCH (06:36)
[2023-08-18] MEDS: PANTOPRAZOLE 40 MG TABLET PO SCH (06:37)
[2023-08-18] MEDS: carvediloL 12.5 MG TAB PO SCH ×2 (06:37→17:09)
[2023-08-18] MEDS: ASPIRIN 325 MG TAB PO SCH (06:37)
[2023-08-18] MEDS: LEVOTHYROXINE 137 MCG TAB PO SCH (06:37)
[2023-08-18] MEDS: LORATADINE 10 MG TAB PO SCH (06:37)
[2023-08-18] MEDS: INSULIN ASPART (NovoLOG) 100 UNIT/ML VIAL SQ SCH ×4 (06:37→21:42)
--- NOTE | 2023-08-18 07:26 | XR ---
EXAMINATION TYPE: XR chest 1V portable DATE OF EXAM: 08/18/2023 6:55 AM CLINICAL INDICATION:Male, 68 years old with history of CoVID; [facility] COMPARISON: Chest radiographs from TECHNIQUE: XR chest 1V portable Frontal view of the chest. FINDINGS: Lungs/Pleura: Low lung volumes are present. Similar multifocal airspace opacities. No evidence of pne umothorax or pleural effusion. Pulmonary vascularity: Unremarkable. Heart/mediastinum: Cardiomediastinal silhouette is enlarged and stable. Musculoskeletal: No acute osseous pathology. Other findings: None Lines/Tubes: IMPRESSION: Similar basilar airspace opacities
[2023-08-18] MEDS: ALBUTEROL HFA INHALER INHALATION SCH ×4 (08:28→21:31)
[2023-08-18] MEDS: SYMBICORT 160-4.5 MCG INHALER INHALATION SCH ×2 (08:29→21:31)
[2023-08-18] MEDS: TIOTROPIUM 2.5 MCG INHALER INHALATION SCH (08:29)
[2023-08-18 08:42] LABS: HCT 37.4 % (39.6-50.0); HGB 11.9 g/dL (13.0-17.0); MCH 28.1 pg (27.0-32.0); MCHC 31.8 g/dL (32.0-37.0); MCV 88.4 FL (80.0-97.0); Mean Platelet Volume 9.9 FL (9.5-12.2); NRBC Per 100 WBC 0 X 10*3/uL (0.00-0.01); Platelet Count 347 X 10*3/uL (140-440); RBC 4.23 X 10*6/uL (4.40-5.60); RDW 14.5 % (11.5-14.5)
[2023-08-18 08:53] LABS: ALT 31 U/L (10-49); AST 20 U/L (14-35); Albumin 2.4 g/dL (3.8-4.9); Albumin/Globulin Ratio 1.04 Ratio (1.60-3.17); Alkaline Phosphatase 83 U/L (41-126); BUN/Creat Ratio 24.25 Ratio (12.00-20.00); Blood Urea Nitrogen 9.7 mg/dL (9.0-27.0); Calcium 8.6 mg/dL (8.7-10.3); Carbon Dioxide 30.5 mmol/L (21.6-31.8); Chloride 99 mmol/L (96-109); Globulin 2.3 g/dL (1.6-3.3); Glucose 157 mg/dL (70-110); Potassium 3.9 mmol/L (3.5-5.5); Sodium 138 mmol/L (135-145); Total Bilirubin 0.4 mg/dL (0.3-1.2); Total Protein 4.7 g/dL (6.2-8.2)
[2023-08-18] MEDS: NICOTINE 21MG/24HR PATCH TRANSDERM SCH (08:55)
[2023-08-18] MEDS: guaiFENesin 600 MG TABLET.ER PO SCH ×4 (08:55→21:43)
[2023-08-18] MEDS: dexAMETHasone 2 MG TAB PO SCH (08:55)
[2023-08-18] MEDS: PIPERACILLIN-TAZOBACTAM 3.375 GM in SODIUM CHLORIDE 0.9% 100 ML IVPB SCH ×2 (08:55→17:10)
[2023-08-18] MEDS: ZINC SULFATE 220 MG CAP PO SCH (08:55)
[2023-08-18] MEDS: MULTIVITAMINS, THERA 1 EACH TAB PO SCH (08:55)
[2023-08-18] MEDS: ENOXAPARIN 40 MG/0.4 ML SYRINGE SQ SCH (08:55)
[2023-08-18] MEDS: INSULIN DETEMIR (LEVEMIR) 100 UNIT/ML SYR SQ SCH ×2 (08:56→21:43)
[2023-08-18] MEDS: buPROPion XL 150 MG TAB.ER.24H PO SCH ×2 (08:56→21:42)
[2023-08-18 11:28] VITALS: BMI 31.4
[2023-08-18 11:33] LABS: Glucose,Whole Blood 286 mg/dL (70-110)
--- NOTE | 2023-08-18 13:42 | P.PN ---
Subjective Progress Note Date: 08/18/23 Patient today was a rapid response for worsening respiratory failure ended up on a 100% nonrebreather. Had a chest x-ray done which reveals a small right-sided pleural effusion and received a dose of IV Lasix. Was transferred to the intensive care unit and was placed on a 100% FiO2 BiPAP 08/27. Noted the patient tested positive for Covid 4 days ago in the hospital but has been having symptoms for 10+ days outpatient and had a positive test outpatient as well. D- Dimer is elevated at 2.11 which is increased from 0.60 on admission. He has been started on IV zosyn empirically as well as PO decadron. 08/13/2023 Patient is evaluated in the intensive care unit. He remains on BiPAP currently at 55% fio2 08/27. CT angiography was completed yesterday which reveals no evidence of pulmonary embolism, there is bibasilar and right perihilar airspace consolidation. Findings are likely representing pneumonia and are new from prior. Lymphadenopathy throughout the mediastinum likely secondary to infectious process. Follow up chest xray today reveals ongoing extensive bilateral lower lung airspace disease right greater than left. Procalcitonin is improved at 0.78. Levemir as discontinued yesterday and blood glucose has improved. Remains on oral decadron, IV zosyn, albuterol inhaler, and supportive care. 08/14/2023 Patient remains in intensive care unit. Currently on BiPAP with 50% FiO2. Chest xray today showing stable infiltrates. White count 15. Renal function normal. Blood glucose improved. Patient remains on empiric antibiotics with IV zosyn. On oral decadron and supportive care. 08/15. Patient seen and examined. Patient continues to be on heated high flow. States he feels better. Sitting upright in the chair. 08/16. Patient seen and examined. Currently on airvo 60% FiO2 and 60 L flow. Sitting upright in the chair. Denies any shortness of breath at rest. Denies any nausea or vomiting. 08/17. Patient seen and examined. Patient was also out of ICU last night. Currently on AIRvo at 60 L and FiO2 48%. Denies any conversational dyspnea, denies shortness of breath at rest. Sister at the bedside 08/18. Patient seen and examined. Continues to be on heated high flow. Has conversational dyspnea, shortness of breath on exertion and also present. Denies any chest pain. Vital signs stable REVIEW OF SYSTEMS: CONSTITUTIONAL: No fever, no malaise,. CARDIOVASCULAR: No chest pain, no palpitations, no syncope. PULMONARY: As mentioned above GASTROINTESTINAL: No diarrhea, no nausea, no vomiting, no abdominal pain. NEUROLOGICAL: No headaches, no weakness, PHYSICAL EXAMINATION: GENERAL: The patient is alert and oriented x3, chronically ill-looking HEENT: Pupils are round and equally reacting to light. EOMI. No scleral icterus. No conjunctival pallor. Normocephalic, atraumatic. No pharyngeal erythema. No thyromegaly. CARDIOVASCULAR: S1 and S2 present. No murmurs, rubs, or gallops. PULMONARY: Coarse breath sounds bilaterally, expiratory rhonchi audible ABDOMEN: Soft, nontender, nondistended, normoactive bowel sounds. No palpable or ganomegaly. MUSCULOSKELETAL: No joint swelling or deformity. EXTREMITIES: No cyanosis, clubbing, or pedal edema. NEUROLOGICAL: Gross neurological examination did not reveal any focal deficits. SKIN: No rashes. Assessment and plan Acute covid 19 infection with underlying pneumonia and sepsis with elevated inflammatory markers. Acute hypoxic respiratory failure secondary to acute covid infection and COPD exacerbation mild COPD exacerbation Elevated D Dimer with no evidence of pulmonary embolism. Chronic nicotine use Diabetes Mellitus type 2 HX of coronary artery disease and prior cardiac stenting Gastroesophageal reflux disease Hypthyroidism Hypertension currently hypotensive Hyperlipidemia Monitor vital signs Monitor CBC Monitor CMP Continue telemetry monitoring Encourage use of incentive spirometer Aggressive bronchopulmonary hygiene Continue oxygen supplementation Continue decadron Continue IV zosyn Continue aspirin and Lipitor Continue Coreg Continue Synthroid continue with sliding scale insulin and monitor blood glucose ACHS Critical care following Labs and medication were reviewed.. Continue same treatment. Continue with symptomatic treatment. Resume home medication. Monitor labs and vitals. DVT and GI prophylaxis. Further recommendations as per clinical course of the patient Dictation was produced using [email or web address] dictation software. please excuse any grammatical, word or spelling errors. Objective - Vital Signs Vital signs: Vital Signs Temp 98.1 F 08/18/23 07:04 Pulse 61 08/18/23 07:04 Resp 20 08/18/23 07:04 BP 150/91 08/18/23 07:04 Pulse Ox 97 08/18/23 08:34 FiO2 48 08/18/23 08:34 Intake & Output 08/17/23 08/18/23 08/18/23 18:59 06:59 18:59 Intake Total 350 350 Output Total 1900 1735 Balance -1550 -1385 Intake: IV 350 .9NS 250 Piperacillin-Tazobactam 3 100 .375 gm In Sodium Chloride 0.9% 100 ml @ 25 mls/hr IVPB Q8HR [facility] Rx# :[id number] Oral 350 Output: Urine 1900 1735 Other: Voiding Method Indwelling Catheter Urinal # Voids 3 - Labs CBC & Chem 7: 08/18/23 05:39 08/18/23 05:39 Labs: Abnormal Lab Results - Last 24 Hours (Table) 08/17/23 08/17/23 08/17/23 Range/Units 11:00 17:15 20:52 WBC (4.50-10.00) X 10*3/uL RBC (4.40-5.60) X 10*6/uL Hgb (13.0-17.0) g/dL Hct (39.6-50.0) % MCHC (32.0-37.0) g/dL Creatinine (0.6-1.5) mg/dL BUN/Creatinine Ratio (12.00-20.00) Ratio Glucose (70-110) mg/dL POC Glucose (mg/dL) 262 H 315 H 300 H (70-110) mg/dL Calcium (8.7-10.3) mg/dL Total Protein (6.2-8.2) g/dL Albumin (3.8-4.9) g/dL Albumin/Globulin Ratio (1.60-3.17) Ratio 08/18/23 08/18/23 08/18/23 Range/Units 05:39 05:39 06:06 WBC 11.60 H (4.50-10.00) X 10*3/uL RBC 4.23 L (4.40-5.60) X 10*6/uL Hgb 11.9 L (13.0-17.0) g/dL Hct 37.4 L (39.6-50.0) % MCHC 31.8 L (32.0-37.0) g/dL Creatinine 0.4 L (0.6-1.5) mg/dL BUN/Creatinine Ratio 24.25 H (12.00-20.00) Ratio Glucose 157 H (70-110) mg/dL POC Glucose (mg/dL) 166 H (70-110) mg/dL Calcium 8.6 L (8.7-10.3) mg/dL Total Protein 4.7 L (6.2-8.2) g/dL Albumin 2.4 L (3.8-4.9) g/dL Albumin/Globulin Ratio 1.04 L (1.60-3.17) Ratio
--- NOTE | 2023-08-18 13:42 | P.PN ---
Subjective Progress Note Date: 08/18/23 Patient is 68-year-old male presents emergency department for altered mental status. Patient has been positive for COVID-19 for 7 days. He's been sick and weak for the last 2 weeks. Currently patient is brought in by EMS after his family member called for concerns of altered mental status. . The patient been feeling lethargic, weak, and becoming more incoherent and at the same time feeling tired and fatigued without any stamina or energy. His oral intake has also been diminished and the patient was complaining of some shortness of breath in addition. He has not been infected with Covid 19 in the past and this is current infection. His symptoms started approximately 10 days ago and the melinda ent tested positive approximately a week ago based on an outpatient. He has not received any treatment on outpatient basis. Patient is vaccinated for COVID-19 2 and the patient not been infected in the past.. Complains of total body pain, cough, shortness of breath.. The patient's is admitted for the same and currently she is hospitalized for Covid 19 infection and pneumonia. He has no focal neurological deficit and a CAT scan of the brain was negative. The chest x-ray showed no acute abnormalities. He has COPD. There is some mild increased interstitial markings bilaterally which could reflect bronchitis or limited Covid 19 related pneumonia changes. The patient is currently on 2 L of oxygen nasal cannula with pulse ox of 93% patient is running a low-grade fever. Also, his echoes at 10.1 with a hemoglobin of 14.6 and a platelet count of 146. D-dimer is at 0.6. Sodium is at 134 with a potassium level of 3.1. BUN is 16 with a creatinine of 0.4. Pro-calcitonin level is at 1.2. TSH 0.8. LDH level is at 117. On today's evaluation of 08/10/2023, seeing the patient for a follow-up. Slightly improved compared to yesterday. Still having issues with lethargy and weakness. No altered mentation at this point in time. No nausea and emesis. He has a congested cough as the patient has advanced COPD and is a chronic smoker. He remains on Decadron. Some elevation of blood sugar is noted and the patient's HbA1c level is at 9.6 indicating portal blood sugar control. The d- dimer is at 0.6. TSH 0.8. Pro-calcitonin level was interestingly elevated at 1.2. No clear indication for an underlying bacterial infection at this point in time. The patient remains on Lovenox for DVT prophylaxis. Home medications of his COPD remains on Symbicort and albuterol HFA [id number]. The patient is seen today 08/11/2023 in follow-up on the regular medical floor. He is currently resting comfortably in bed. Awake and alert in no acute distress. He is sitting up in bed. He is maintaining O2 saturations in the 90s on room air. His a dry nonproductive cough. White count 7.6. Hemoglobin 12.0. Platelets 207. Sodium 136. Potassium 4.2. Bicarb 27. BUN 24. Creatinine 0.49. Glucose 108. AST 22. ALT 19. He is continued on Symbicort, Spiriva, albuterol, vitamin supplements. Maintained on Decadron. Lovenox for DVT prophylaxis. NicoDerm patch in place. The patient is seen today 08/17/2023 in follow-up on the regular medical floor. He was transferred out of the intensive care unit yesterday. He is sitting up in a chair. He is awake and alert in no acute distress. He's afebrile. Hemodynamically stable. He is on AirVo hypo-oxygen at 60 L and 50% FiO2. He remains on Zosyn. Continued on Decadron and Lovenox. Continued on vitamin lui pplements. Remains on albuterol, Symbicort, Spiriva. NicoDerm patch in place. Blood sugar 262. Calcium 1.9. The patient is seen today 08/18/2023 in follow-up on the regular medical floor. He has sitting up in a chair at the bedside. Awake and alert in no acute distress. He is still on AirVo high flow oxygen at 60 L and 50% FiO2. Today's chest x-ray continues to show similar basilar airspace opacities. His pro calcitonin was 0.78. He is continued on Zosyn. Continues on Decadron, Lovenox, vitamin supplements. Remains on Symbicort, albuterol, Spiriva. NicoDerm patch in place. He has normal saline at KVO. Objective - Vital Signs Vital signs: Vital Signs Temp 98.1 F 08/18/23 07:04 Pulse 61 08/18/23 07:04 Resp 20 08/18/23 07:04 BP 150/91 08/18/23 07:04 Pulse Ox 97 08/18/23 08:34 FiO2 48 08/18/23 12:11 Intake & Output 08/17/23 08/18/23 08/18/23 18:59 06:59 18:59 Intake Total 350 350 Output Total 1900 1735 Balance -1550 -1385 Weight 96.5 kg Intake: IV 350 .9NS 250 Piperacillin-Tazobactam 3 100 .375 gm In Sodium Chloride 0.9% 100 ml @ 25 mls/hr IVPB Q8HR [facility] Rx# :[id number] Oral 350 Output: Urine 1900 1735 Other: Voiding Method Indwelling Catheter Urinal # Voids 3 - Exam GENERAL EXAM: Alert, pleasant 68-year-old male, a AirVo high flow oxygen at 60 L and 50% FiO2, in no apparent distress. HEAD: Normocephalic. EYES: Normal reaction of pupils, equal size. NOSE: Clear with pink turbinates. THROAT: No erythema or exudates. NECK: No masses, no JVD. CHEST: No chest wall deformity. LUNGS: Equal air entry with crackles in the bilateral bases. CVS: S1 and S2 normal with no audible murmur, regular rhythm. ABDOMEN: No hepatosplenomegaly, normal bowel sounds, no guarding or rigidity. SPINE: No scoliosis or deformity SKIN: No rashes CENTRAL NERVOUS SYSTEM: No focal deficits, tone is normal in all 4 extremities. EXTREMITIES: There is no peripheral edema. No clubbing, no cyanosis. Peripheral pulses are intact. - Labs CBC & Chem 7: 08/18/23 05:39 08/18/23 05:39 Labs: Abnormal Lab Results - Last 24 Hours (Table) 08/17/23 08/17/23 08/18/23 Range/Units 17:15 20:52 05:39 WBC 11.60 H (4.50-10.00) X 10*3/uL RBC 4.23 L (4.40-5.60) X 10*6/uL Hgb 11.9 L (13.0-17.0) g/dL Hct 37.4 L (39.6-50.0) % MCHC 31.8 L (32.0-37.0) g/dL Creatinine (0.6-1.5) mg/dL BUN/Creatinine Ratio (12.00-20.00) Ratio Glucose (70-110) mg/dL POC Glucose (mg/dL) 315 H 300 H (70-110) mg/dL Calcium (8.7-10.3) mg/dL Total Protein (6.2-8.2) g/dL Albumin (3.8-4.9) g/dL Albumin/Globulin Ratio (1.60-3.17) Ratio 08/18/23 08/18/23 08/18/23 Range/Units 05:39 06:06 11:31 WBC (4.50-10.00) X 10*3/uL RBC (4.40-5.60) X 10*6/uL Hgb (13.0-17.0) g/dL Hct (39.6-50.0) % MCHC (32.0-37.0) g/dL Creatinine 0.4 L (0.6-1.5) mg/dL BUN/Creatinine Ratio 24.25 H (12.00-20.00) Ratio Glucose 157 H (70-110) mg/dL POC Glucose (mg/dL) 166 H 286 H (70-110) mg/dL Calcium 8.6 L (8.7-10.3) mg/dL Total Protein 4.7 L (6.2-8.2) g/dL Albumin 2.4 L (3.8-4.9) g/dL Albumin/Globulin Ratio 1.04 L (1.60-3.17) Ratio Assessment and Plan Assessment: Covid 19 infection. Symptoms started over 10 days ago and the patient tested positive over a week ago on an outpatient basis. The diagnosis was confirmed here in the hospital. His is admitted for the same. The patient may have a limited Covid 19 related pneumonia based on chest x-ray findings. Patient also has a mild hypoxic respiratory failure addition to various other constitutional symptoms. The patient has been vaccinated 2 without any boosters. This is his first infection with Covid 19 Acute hypoxic respiratory failure injury to above and suspected superimposed bacterial pneumonia with elevated pro calcitonin, currently on AirVo high flow oxygen remains on Zosyn COPD and the patient smokes up to 2 pack of cigarettes a day with a component of COPD exacerbation Generalized weakness and lethargy and fatigue along with some altered level of consciousness, with a negative CAT scan of the brain and the patient is improving. D-dimer is at low Diabetes mellitus type 2, poorly controlled and outpatient basis with an elevated HbA1c level and the patient is currently on Levemir insulin 24 units and a sliding scale coverage. Hypothyroidism Hypertension Hyperlipidemia Plan: The patient was seen and evaluated Chest x-ray, labs and medications reviewed Continue the current treatment plan Titrate the FiO2 as tolerated We will continue to follow I have personally seen and examined the patient, performed the documentation and the assessment and plan as written. Number of minutes spent on the visit: 10.
[2023-08-18 16:21] LABS: Glucose,Whole Blood 333 mg/dL (70-110)
[2023-08-18 21:17] LABS: Glucose,Whole Blood 367 mg/dL (70-110)
[2023-08-18] MEDS: ATORVASTATIN 20 MG TAB PO SCH (21:42)
[2023-08-18] MEDS: ASCORBIC ACID 500 MG TAB PO SCH (21:42)
[2023-08-18] MEDS: CITALOPRAM HYDROBROMIDE 20 MG TAB PO SCH (21:42)
[2023-08-19] MEDS: PIPERACILLIN-TAZOBACTAM 3.375 GM in SODIUM CHLORIDE 0.9% 100 ML IVPB SCH ×2 (00:16→08:42)
[2023-08-19] MEDS: SODIUM CHLORIDE 0.9% 1,000 ML IV SCH (02:40)
[2023-08-19] MEDS: ASPIRIN 325 MG TAB PO SCH (06:04)
[2023-08-19] MEDS: ACETAMINOPHEN TAB 325 MG TAB PO PRN ×2 (06:05→18:02)
[2023-08-19] MEDS: MELOXICAM 7.5 MG TAB PO SCH (06:05)
[2023-08-19] MEDS: LORATADINE 10 MG TAB PO SCH (06:05)
[2023-08-19] MEDS: CHOLECALCIFEROL 125 MCG (5000 IU) TABLET PO SCH (06:05)
[2023-08-19] MEDS: LEVOTHYROXINE 137 MCG TAB PO SCH (06:05)
[2023-08-19] MEDS: carvediloL 12.5 MG TAB PO SCH ×2 (06:06→17:59)
[2023-08-19] MEDS: PANTOPRAZOLE 40 MG TABLET PO SCH (06:06)
[2023-08-19 06:08] LABS: Glucose,Whole Blood 148 mg/dL (70-110)
[2023-08-19] MEDS: INSULIN ASPART (NovoLOG) 100 UNIT/ML VIAL SQ SCH ×4 (06:09→21:49)
[2023-08-19] MEDS: ALBUTEROL HFA INHALER INHALATION SCH ×4 (08:00→21:23)
[2023-08-19] MEDS: SYMBICORT 160-4.5 MCG INHALER INHALATION SCH ×2 (08:00→21:24)
[2023-08-19] MEDS: TIOTROPIUM 2.5 MCG INHALER INHALATION SCH (08:00)
[2023-08-19] MEDS: dexAMETHasone 2 MG TAB PO SCH (08:37)
[2023-08-19] MEDS: ZINC SULFATE 220 MG CAP PO SCH (08:38)
[2023-08-19 08:39] LABS: ALT 36 U/L (10-49); AST 20 U/L (14-35); Albumin 2.4 g/dL (3.8-4.9); Alkaline Phosphatase 82 U/L (41-126); Blood Urea Nitrogen 9.6 mg/dL (9.0-27.0); Calcium 8.8 mg/dL (8.7-10.3); Carbon Dioxide 30.8 mmol/L (21.6-31.8); Chloride 99 mmol/L (96-109); Globulin 2.4 g/dL (1.6-3.3); Glucose 149 mg/dL (70-110); Sodium 136 mmol/L (135-145); Total Bilirubin 0.3 mg/dL (0.3-1.2); Total Protein 4.8 g/dL (6.2-8.2)
[2023-08-19] MEDS: MULTIVITAMINS, THERA 1 EACH TAB PO SCH (08:39)
[2023-08-19] MEDS: guaiFENesin 600 MG TABLET.ER PO SCH ×4 (08:39→21:49)
[2023-08-19] MEDS: INSULIN DETEMIR (LEVEMIR) 100 UNIT/ML SYR SQ SCH ×3 (08:39→22:22)
[2023-08-19] MEDS: NICOTINE 21MG/24HR PATCH TRANSDERM SCH (08:39)
[2023-08-19] MEDS: buPROPion XL 150 MG TAB.ER.24H PO SCH ×2 (08:40→21:49)
[2023-08-19] MEDS: ENOXAPARIN 40 MG/0.4 ML SYRINGE SQ SCH (08:40)
[2023-08-19] MEDS ORDERED: PIPERACILLIN-TAZOBACTAM 3.375 GM in SODIUM CHLORIDE 0.9% 100 ML IVPB ONE (08:45)
[2023-08-19 09:09] LABS: Basophils # (M) 0 X 10*3/uL (0.00-0.10); HCT 36.3 % (39.6-50.0); HGB 11.8 g/dL (13.0-17.0); MCH 28.2 pg (27.0-32.0); MCHC 32.5 g/dL (32.0-37.0); MCV 86.6 FL (80.0-97.0); Mean Platelet Volume 9.9 FL (9.5-12.2); NRBC Per 100 WBC 0 X 10*3/uL (0.00-0.01); Platelet Count 381 X 10*3/uL (140-440); RBC 4.19 X 10*6/uL (4.40-5.60); RDW 14.6 % (11.5-14.5); WBC 9.39 X 10*3/uL (4.50-10.00)
[2023-08-19 09:18] LABS: Neutrophils # (M) 7.98 X 10*3/uL (1.80-7.70)
[2023-08-19 09:20] LABS: Eosinophils # (M) 0.09 X 10*3/uL (0.04-0.35); Lymphocytes # (M) 0.28 X 10*3/uL (0.90-5.00); Monocytes # (M) 0.38 X 10*3/uL (0.20-1.00); Myelocytes % 5 % (0-0); Neutrophils % (M) 85 %; Promyelocytes # (M) 0.19 k/uL (0); Promyelocytes % 2 %; RBC Morphology Normal (Normal)
[2023-08-19 11:34] LABS: Glucose,Whole Blood 318 mg/dL (70-110)
--- NOTE | 2023-08-19 13:12 | P.PN ---
Subjective Progress Note Date: 08/19/23 Patient is 68-year-old male presents emergency department for altered mental status. Patient has been positive for COVID-19 for 7 days. He's been sick and weak for the last 2 weeks. Currently patient is brought in by EMS after his family member called for concerns of altered mental status. . The patient been feeling lethargic, weak, and becoming more incoherent and at the same time feeling tired and fatigued without any stamina or energy. His oral intake has also been diminished and the patient was complaining of some shortness of breath in addition. He has not been infected with Covid 19 in the past and this is current infection. His symptoms started approximately 10 days ago and the melinda ent tested positive approximately a week ago based on an outpatient. He has not received any treatment on outpatient basis. Patient is vaccinated for COVID-19 2 and the patient not been infected in the past.. Complains of total body pain, cough, shortness of breath.. The patient's is admitted for the same and currently she is hospitalized for Covid 19 infection and pneumonia. He has no focal neurological deficit and a CAT scan of the brain was negative. The chest x-ray showed no acute abnormalities. He has COPD. There is some mild increased interstitial markings bilaterally which could reflect bronchitis or limited Covid 19 related pneumonia changes. The patient is currently on 2 L of oxygen nasal cannula with pulse ox of 93% patient is running a low-grade fever. Also, his echoes at 10.1 with a hemoglobin of 14.6 and a platelet count of 146. D-dimer is at 0.6. Sodium is at 134 with a potassium level of 3.1. BUN is 16 with a creatinine of 0.4. Pro-calcitonin level is at 1.2. TSH 0.8. LDH level is at 117. On today's evaluation of 08/10/2023, seeing the patient for a follow-up. Slightly improved compared to yesterday. Still having issues with lethargy and weakness. No altered mentation at this point in time. No nausea and emesis. He has a congested cough as the patient has advanced COPD and is a chronic smoker. He remains on Decadron. Some elevation of blood sugar is noted and the patient's HbA1c level is at 9.6 indicating portal blood sugar control. The d- dimer is at 0.6. TSH 0.8. Pro-calcitonin level was interestingly elevated at 1.2. No clear indication for an underlying bacterial infection at this point in time. The patient remains on Lovenox for DVT prophylaxis. Home medications of his COPD remains on Symbicort and albuterol HFA [id number]. The patient is seen today 08/11/2023 in follow-up on the regular medical floor. He is currently resting comfortably in bed. Awake and alert in no acute distress. He is sitting up in bed. He is maintaining O2 saturations in the 90s on room air. His a dry nonproductive cough. White count 7.6. Hemoglobin 12.0. Platelets 207. Sodium 136. Potassium 4.2. Bicarb 27. BUN 24. Creatinine 0.49. Glucose 108. AST 22. ALT 19. He is continued on Symbicort, Spiriva, albuterol, vitamin supplements. Maintained on Decadron. Lovenox for DVT prophylaxis. NicoDerm patch in place. The patient is seen today 08/17/2023 in follow-up on the regular medical floor. He was transferred out of the intensive care unit yesterday. He is sitting up in a chair. He is awake and alert in no acute distress. He's afebrile. Hemodynamically stable. He is on AirVo hypo-oxygen at 60 L and 50% FiO2. He remains on Zosyn. Continued on Decadron and Lovenox. Continued on vitamin lui pplements. Remains on albuterol, Symbicort, Spiriva. NicoDerm patch in place. Blood sugar 262. Calcium 1.9. The patient is seen today 08/18/2023 in follow-up on the regular medical floor. He has sitting up in a chair at the bedside. Awake and alert in no acute distress. He is still on AirVo high flow oxygen at 60 L and 50% FiO2. Today's chest x-ray continues to show similar basilar airspace opacities. His pro calcitonin was 0.78. He is continued on Zosyn. Continues on Decadron, Lovenox, vitamin supplements. Remains on Symbicort, albuterol, Spiriva. NicoDerm patch in place. He has normal saline at KVO. The patient is seen today 08/19/2023 in follow-up on the regular medical floor. He is awake and alert. Sitting up in a chair. Continued on AirVo high flow oxygen at 60 L and 50% FiO2. His recent pro calcitonin was down to 0.78. He is continued on Zosyn. He has normal saline at 25 ML's per hour. White count 9.3. Hemoglobin 11.8. Platelets 381. Sodium 136. Potassium 4.0. Bicarb 31. BUN 9.6. Creatinine 0.4. Glucose 149. He is continued on Symbicort and Spiriva and albuterol. Maintained on Decadron. Lovenox for DVT prophylaxis. NicoDerm patch in place. Continued on vitamin supplements. Objective - Vital Signs Vital signs: Vital Signs Temp 97.9 F 08/19/23 07:04 Pulse 55 L 08/19/23 07:04 Resp 20 08/19/23 09:36 BP 135/86 08/19/23 07:04 Pulse Ox 95 08/19/23 11:23 FiO2 48 08/19/23 11:23 Intake & Output 08/18/23 08/19/23 08/19/23 18:59 06:59 18:59 Intake Total 100 Balance 100 Weight 96.5 kg Intake: Oral 100 Other: Voiding Method Urinal - Exam GENERAL EXAM: Alert, 68-year-old male, up in a chair, a AirVo high flow oxygen at 60 L and 50% FiO2, in no apparent distress. HEAD: Normocephalic. EYES: Normal reaction of pupils, equal size. NOSE: Clear with pink turbinates. THROAT: No erythema or exudates. NECK: No masses, no JVD. CHEST: No chest wall deformity. LUNGS: Equal air entry with crackles in the bilateral bases. CVS: S1 and S2 normal with no audible murmur, regular rhythm. ABDOMEN: No hepatosplenomegaly, normal bowel sounds, no guarding or rigidity. SPINE: No scoliosis or deformity SKIN: No rashes CENTRAL NERVOUS SYSTEM: No focal deficits, tone is normal in all 4 extremities. EXTREMITIES: There is no peripheral edema. No clubbing, no cyanosis. Peripheral pulses are intact. - Labs CBC & Chem 7: 08/19/23 04:29 08/19/23 04:29 Labs: Abnormal Lab Results - Last 24 Hours (Table) 08/18/23 08/18/23 08/19/23 Range/Units 16:20 21:12 04:29 RBC 4.19 L (4.40-5.60) X 10*6/uL Hgb 11.8 L (13.0-17.0) g/dL Hct 36.3 L (39.6-50.0) % RDW 14.6 H (11.5-14.5) % Neutrophils # (Manual) 7.98 H (1.80-7.70) X 10*3/uL Lymphocytes # (Manual) 0.28 L (0.90-5.00) X 10*3/uL Promyelocytes # (Man) 0.19 H (0) k/uL Creatinine (0.6-1.5) mg/dL BUN/Creatinine Ratio (12.00-20.00) Ratio Glucose (70-110) mg/dL POC Glucose (mg/dL) 333 H 367 H (70-110) mg/dL Total Protein (6.2-8.2) g/dL Albumin (3.8-4.9) g/dL Albumin/Globulin Ratio (1.60-3.17) Ratio 08/19/23 08/19/23 08/19/23 Range/Units 04:29 06:07 11:33 RBC (4.40-5.60) X 10*6/uL Hgb (13.0-17.0) g/dL Hct (39.6-50.0) % RDW (11.5-14.5) % Neutrophils # (Manual) (1.80-7.70) X 10*3/uL Lymphocytes # (Manual) (0.90-5.00) X 10*3/uL Promyelocytes # (Man) (0) k/uL Creatinine 0.4 L (0.6-1.5) mg/dL BUN/Creatinine Ratio 24.00 H (12.00-20.00) Ratio Glucose 149 H (70-110) mg/dL POC Glucose (mg/dL) 148 H 318 H (70-110) mg/dL Total Protein 4.8 L (6.2-8.2) g/dL Albumin 2.4 L (3.8-4.9) g/dL Albumin/Globulin Ratio 1.00 L (1.60-3.17) Ratio Assessment and Plan Assessment: Covid 19 infection. Symptoms started over 10 days ago and the patient tested positive over a week ago on an outpatient basis. The diagnosis was confirmed here in the hospital. His is admitted for the same. The patient may have a limited Covid 19 related pneumonia based on chest x-ray findings. Patient also has a mild hypoxic respiratory failure addition to various other constitutional symptoms. The patient has been vaccinated 2 without any boosters. This is his first infection with Covid 19 Acute hypoxic respiratory failure injury to above and suspected superimposed bacterial pneumonia with elevated pro calcitonin, currently on AirVo high flow oxygen completed Zosyn COPD and the patient smokes up to 2 pack of cigarettes a day with a component of COPD exacerbation Generalized weakness and lethargy and fatigue along with some altered level of consciousness, with a negative CAT scan of the brain and the patient is improving. D-dimer is at low Diabetes mellitus type 2, poorly controlled and outpatient basis with an elevated HbA1c level and the patient is currently on Levemir insulin 24 units and a sliding scale coverage. Hypothyroidism Hypertension Hyperlipidemia Plan: The patient was seen and evaluated Labs and medications reviewed Discontinue Zosyn Continue the current treatment plan Remains on AirVo high flow at 60 L and 50% FiO2 Attempt to transition to have high flow nasal cannula Titrate the FiO2 as tolerated We will continue to follow I have personally seen and examined the patient, performed the documentation and the assessment and plan as written. Number of minutes spent on the visit: 10.
[2023-08-19 16:15] LABS: Glucose,Whole Blood 461 mg/dL (70-110)
--- NOTE | 2023-08-19 21:20 | P.PN ---
Subjective Progress Note Date: 08/19/23 Patient has been moved out of the ICU continues on airvo oxygen support at 60L with FiO2 48%, plan is for patient to be weaned off the airvo and placed on hi flow cannula. Patient up to 1500 on his IS. IV antibiotics have been discontinued. He is agitated and is hoping to be able to be discharged soon. Review of Systems Constitutional: Denied any fatigue denied any fever. Cardio vascular: denied any chest pain, palpitations Gastrointestinal: denied any nausea, vomiting, diarrhea Pulmonary: Denied any shortness of breath cough Neurologic denied any new focal deficits All inpatient medications were reviewed and appropriate changes in these medications as dictated in the interval history and assessment and plan. PHYSICAL EXAMINATION: GENERAL: The patient is alert and oriented x3, not in any acute distress. Well developed, well nourished. HEENT: Pupils are round and equally reacting to light. EOMI. No scleral icterus. No conjunctival pallor. Normocephalic, atraumatic. No pharyngeal erythema. No thyromegaly. CARDIOVASCULAR: S1 and S2 present. No murmurs, rubs, or gallops. PULMONARY: Chest is clear to auscultation, no wheezing or crackles. ABDOMEN: Soft, nontender, nondistended, normoactive bowel sounds. No palpable organomegaly. MUSCULOSKELETAL: No joint swelling or deformity. EXTREMITIES: No cyanosis, clubbing, or pedal edema. NEUROLOGICAL: Gross neurological examination did not reveal any focal deficits. SKIN: No rashes. Assessment Acute covid 19 infection with underlying pneumonia and sepsis with elevated inflammatory markers. Acute hypoxic respiratory failure secondary to acute covid infection and COPD exacerbation mild COPD exacerbation Elevated D Dimer with no evidence of pulmonary embolism. Chronic nicotine use Diabetes Mellitus type 2 HX of coronary artery disease and prior cardiac stenting Gastroesophageal reflux disease Hypthyroidism Hypertension currently hypotensive Hyperlipidemia GI prophylaxis DVT prophylaxis Full Code Plan Continue to encourage incentive spirometer 10 x an hour Continue on oxygen support and wean as tolerated Continue on sliding scale insulin and ACHS accuchecks, levemir has been increased at HS and also scheduled insulin added for improved glycemic control. IV zosyn has been discontinued patient has completed course of therapy. Patient continues on 10 day course of oral dexamethasone; currently on day 8. He remains on bronchodilators and recommending aggresive bronchopulmonary hygiene Encouarged to increase activity level as tolerated Continue all other medications and supportive care. The impression and plan of care has been dictated by Nurse Wilmar Joyner as directed. Dr. Darrel MD I have performed a history and physical examination and medical decision making of this patient, discussed the same with the dictator, and agree with the dict ators assessment and plan as written, documented as a scribe. Based on total visit time, I have performed more than 50% of this visit. Objective - Vital Signs Vital signs: Vital Signs Temp 98.2 F 08/19/23 12:53 Pulse 72 08/19/23 12:53 Resp 19 08/19/23 12:53 BP 114/68 08/19/23 12:53 Pulse Ox 93 L 08/19/23 12:53 FiO2 51 08/19/23 15:00 Intake & Output 08/18/23 08/19/23 08/19/23 18:59 06:59 18:59 Intake Total 100 Balance 100 Weight 96.5 kg Intake: Oral 100 Other: Voiding Method Urinal - Labs CBC & Chem 7: 08/19/23 04:29 08/19/23 04:29 Labs: Abnormal Lab Results - Last 24 Hours (Table) 08/18/23 08/18/23 08/19/23 Range/Units 16:20 21:12 04:29 RBC 4.19 L (4.40-5.60) X 10*6/uL Hgb 11.8 L (13.0-17.0) g/dL Hct 36.3 L (39.6-50.0) % RDW 14.6 H (11.5-14.5) % Neutrophils # (Manual) 7.98 H (1.80-7.70) X 10*3/uL Lymphocytes # (Manual) 0.28 L (0.90-5.00) X 10*3/uL Promyelocytes # (Man) 0.19 H (0) k/uL Creatinine (0.6-1.5) mg/dL BUN/Creatinine Ratio (12.00-20.00) Ratio Glucose (70-110) mg/dL POC Glucose (mg/dL) 333 H 367 H (70-110) mg/dL Total Protein (6.2-8.2) g/dL Albumin (3.8-4.9) g/dL Albumin/Globulin Ratio (1.60-3.17) Ratio 08/19/23 08/19/23 08/19/23 Range/Units 04:29 06:07 11:33 RBC (4.40-5.60) X 10*6/uL Hgb (13.0-17.0) g/dL Hct (39.6-50.0) % RDW (11.5-14.5) % Neutrophils # (Manual) (1.80-7.70) X 10*3/uL Lymphocytes # (Manual) (0.90-5.00) X 10*3/uL Promyelocytes # (Man) (0) k/uL Creatinine 0.4 L (0.6-1.5) mg/dL BUN/Creatinine Ratio 24.00 H (12.00-20.00) Ratio Glucose 149 H (70-110) mg/dL POC Glucose (mg/dL) 148 H 318 H (70-110) mg/dL Total Protein 4.8 L (6.2-8.2) g/dL Albumin 2.4 L (3.8-4.9) g/dL Albumin/Globulin Ratio 1.00 L (1.60-3.17) Ratio Assessment and Plan Time with Patient: Less than 30
[2023-08-19 21:22] LABS: Glucose,Whole Blood 345 mg/dL (70-110)
[2023-08-19] MEDS: CITALOPRAM HYDROBROMIDE 20 MG TAB PO SCH (21:49)
[2023-08-19] MEDS: ASCORBIC ACID 500 MG TAB PO SCH (21:49)
[2023-08-19] MEDS: ATORVASTATIN 20 MG TAB PO SCH (21:49)
[2023-08-20] MEDS: SODIUM CHLORIDE 0.9% 1,000 ML IV SCH (02:17)
[2023-08-20 06:46] LABS: Glucose,Whole Blood 134 mg/dL (70-110)
[2023-08-20] MEDS: INSULIN ASPART (NovoLOG) 100 UNIT/ML VIAL SQ SCH ×7 (06:46→20:48)
[2023-08-20] MEDS: ASPIRIN 325 MG TAB PO SCH (06:51)
[2023-08-20] MEDS: LEVOTHYROXINE 137 MCG TAB PO SCH (06:51)
[2023-08-20] MEDS: carvediloL 12.5 MG TAB PO SCH ×2 (06:51→17:22)
[2023-08-20] MEDS: LORATADINE 10 MG TAB PO SCH (06:51)
[2023-08-20] MEDS: PANTOPRAZOLE 40 MG TABLET PO SCH (06:51)
[2023-08-20] MEDS: CHOLECALCIFEROL 125 MCG (5000 IU) TABLET PO SCH (06:52)
[2023-08-20] MEDS: ACETAMINOPHEN TAB 325 MG TAB PO PRN (06:52)
[2023-08-20] MEDS: MELOXICAM 7.5 MG TAB PO SCH (06:53)
--- NOTE | 2023-08-20 07:56 | XR ---
EXAMINATION TYPE: XR chest 1V portable DATE OF EXAM: 08/20/2023 7:09 AM CLINICAL INDICATION:Male, 68 years old with history of Covid, pneumonia; [facility] COMPARISON: Chest radiograph from two days prior. TECHNIQUE: XR chest 1V portable Frontal view of the chest. FINDINGS: Lungs/Pleura: Bibasilar atelectasis. No evidence for pneumothorax, pleural effusion or focal consolid ation. Pulmonary vascularity: Unremarkable. Heart/mediastinum: Cardiomediastinal silhouette is unremarkable. Musculoskeletal: No acute osseous pathology. Other findings: None Lines/Tubes: IMPRESSION: Low lung volumes with a generalized hazy appearance which could represent bibasilar atelectasis.
[2023-08-20] MEDS: dexAMETHasone 2 MG TAB PO SCH (08:29)
[2023-08-20] MEDS: ENOXAPARIN 40 MG/0.4 ML SYRINGE SQ SCH (08:29)
[2023-08-20] MEDS: MULTIVITAMINS, THERA 1 EACH TAB PO SCH (08:29)
[2023-08-20] MEDS: ZINC SULFATE 220 MG CAP PO SCH (08:29)
[2023-08-20] MEDS: NICOTINE 21MG/24HR PATCH TRANSDERM SCH (08:29)
[2023-08-20] MEDS: guaiFENesin 600 MG TABLET.ER PO SCH ×4 (08:29→20:31)
[2023-08-20] MEDS: buPROPion XL 150 MG TAB.ER.24H PO SCH ×2 (08:33→20:31)
[2023-08-20] MEDS: ALBUTEROL HFA INHALER INHALATION SCH ×4 (09:54→21:15)
[2023-08-20] MEDS: SYMBICORT 160-4.5 MCG INHALER INHALATION SCH ×2 (09:54→21:13)
[2023-08-20] MEDS: TIOTROPIUM 2.5 MCG INHALER INHALATION SCH (09:55)
[2023-08-20] MEDS ORDERED: DOCUSATE 100 MG CAP PO PRN (11:05)
[2023-08-20] MEDS ORDERED: LACTULOSE 20 GM/30 ML CUP PO ONE (11:15)
[2023-08-20 11:23] LABS: Glucose,Whole Blood 279 mg/dL (70-110)
--- NOTE | 2023-08-20 15:08 | P.PN ---
Subjective Progress Note Date: 08/20/23 Patient is 68-year-old male presents emergency department for altered mental status. Patient has been positive for COVID-19 for 7 days. He's been sick and weak for the last 2 weeks. Currently patient is brought in by EMS after his family member called for concerns of altered mental status. . The patient been feeling lethargic, weak, and becoming more incoherent and at the same time feeling tired and fatigued without any stamina or energy. His oral intake has also been diminished and the patient was complaining of some shortness of breath in addition. He has not been infected with Covid 19 in the past and this is current infection. His symptoms started approximately 10 days ago and the melinda ent tested positive approximately a week ago based on an outpatient. He has not received any treatment on outpatient basis. Patient is vaccinated for COVID-19 2 and the patient not been infected in the past.. Complains of total body pain, cough, shortness of breath.. The patient's is admitted for the same and currently she is hospitalized for Covid 19 infection and pneumonia. He has no focal neurological deficit and a CAT scan of the brain was negative. The chest x-ray showed no acute abnormalities. He has COPD. There is some mild increased interstitial markings bilaterally which could reflect bronchitis or limited Covid 19 related pneumonia changes. The patient is currently on 2 L of oxygen nasal cannula with pulse ox of 93% patient is running a low-grade fever. Also, his echoes at 10.1 with a hemoglobin of 14.6 and a platelet count of 146. D-dimer is at 0.6. Sodium is at 134 with a potassium level of 3.1. BUN is 16 with a creatinine of 0.4. Pro-calcitonin level is at 1.2. TSH 0.8. LDH level is at 117. On today's evaluation of 08/10/2023, seeing the patient for a follow-up. Slightly improved compared to yesterday. Still having issues with lethargy and weakness. No altered mentation at this point in time. No nausea and emesis. He has a congested cough as the patient has advanced COPD and is a chronic smoker. He remains on Decadron. Some elevation of blood sugar is noted and the patient's HbA1c level is at 9.6 indicating portal blood sugar control. The d- dimer is at 0.6. TSH 0.8. Pro-calcitonin level was interestingly elevated at 1.2. No clear indication for an underlying bacterial infection at this point in time. The patient remains on Lovenox for DVT prophylaxis. Home medications of his COPD remains on Symbicort and albuterol HFA [id number]. The patient is seen today 08/11/2023 in follow-up on the regular medical floor. He is currently resting comfortably in bed. Awake and alert in no acute distress. He is sitting up in bed. He is maintaining O2 saturations in the 90s on room air. His a dry nonproductive cough. White count 7.6. Hemoglobin 12.0. Platelets 207. Sodium 136. Potassium 4.2. Bicarb 27. BUN 24. Creatinine 0.49. Glucose 108. AST 22. ALT 19. He is continued on Symbicort, Spiriva, albuterol, vitamin supplements. Maintained on Decadron. Lovenox for DVT prophylaxis. NicoDerm patch in place. The patient is seen today 08/17/2023 in follow-up on the regular medical floor. He was transferred out of the intensive care unit yesterday. He is sitting up in a chair. He is awake and alert in no acute distress. He's afebrile. Hemodynamically stable. He is on AirVo hypo-oxygen at 60 L and 50% FiO2. He remains on Zosyn. Continued on Decadron and Lovenox. Continued on vitamin lui pplements. Remains on albuterol, Symbicort, Spiriva. NicoDerm patch in place. Blood sugar 262. Calcium 1.9. The patient is seen today 08/18/2023 in follow-up on the regular medical floor. He has sitting up in a chair at the bedside. Awake and alert in no acute distress. He is still on AirVo high flow oxygen at 60 L and 50% FiO2. Today's chest x-ray continues to show similar basilar airspace opacities. His pro calcitonin was 0.78. He is continued on Zosyn. Continues on Decadron, Lovenox, vitamin supplements. Remains on Symbicort, albuterol, Spiriva. NicoDerm patch in place. He has normal saline at KVO. The patient is seen today 08/19/2023 in follow-up on the regular medical floor. He is awake and alert. Sitting up in a chair. Continued on AirVo high flow oxygen at 60 L and 50% FiO2. His recent pro calcitonin was down to 0.78. He is continued on Zosyn. He has normal saline at 25 ML's per hour. White count 9.3. Hemoglobin 11.8. Platelets 381. Sodium 136. Potassium 4.0. Bicarb 31. BUN 9.6. Creatinine 0.4. Glucose 149. He is continued on Symbicort and Spiriva and albuterol. Maintained on Decadron. Lovenox for DVT prophylaxis. NicoDerm patch in place. Continued on vitamin supplements. The patient is seen today 08/20/2023 in follow-up on the regular medical floor. He is awake and alert in no acute distress. He is currently on AirVo high flow oxygen at 45 L and 50% FiO2. Chest x-ray continues to show low lung volumes with generalized hazy appearance which could represent bibasilar atelectasis. Blood sugar 134. He is continued on Symbicort, Spiriva, albuterol, Decadron and Lovenox for DVT prophylaxis. NicoDerm patch in place. Remains on vitamin supplements. Objective - Vital Signs Vital signs: Vital Signs Temp 97.8 F 08/20/23 14:00 Pulse 59 L 08/20/23 14:00 Resp 18 08/20/23 14:00 BP 127/85 08/20/23 14:00 Pulse Ox 99 08/20/23 14:00 FiO2 50 08/20/23 09:59 Intake & Output 08/19/23 08/20/23 08/20/23 18:59 06:59 18:59 Intake Total 400 Output Total 1100 Balance 400 -1100 Intake: Oral 400 Output: Urine 1100 Other: Voiding Method Urinal Urinal - Exam GENERAL EXAM: Alert, 68-year-old male, on AirVo high flow oxygen at 50 L and 50% FiO2, in no apparent distress. HEAD: Normocephalic. EYES: Normal reaction of pupils, equal size. NOSE: Clear with pink turbinates. THROAT: No erythema or exudates. NECK: No masses, no JVD. CHEST: No chest wall deformity. LUNGS: Equal air entry with crackles in the bilateral bases. CVS: S1 and S2 normal with no audible murmur, regular rhythm. ABDOMEN: No hepatosplenomegaly, normal bowel sounds, no guarding or rigidity. SPINE: No scoliosis or deformity SKIN: No rashes CENTRAL NERVOUS SYSTEM: No focal deficits, tone is normal in all 4 extremities. EXTREMITIES: There is no peripheral edema. No clubbing, no cyanosis. Pe ripheral pulses are intact. - Labs CBC & Chem 7: 08/19/23 04:29 08/19/23 04:29 Labs: Abnormal Lab Results - Last 24 Hours (Table) 08/19/23 08/19/23 08/20/23 Range/Units 16:13 21:21 06:43 POC Glucose (mg/dL) 461 H 345 H 134 H (70-110) mg/dL 08/20/23 Range/Units 11:22 POC Glucose (mg/dL) 279 H (70-110) mg/dL Assessment and Plan Assessment: Covid 19 infection. Symptoms started over 10 days ago and the patient tested positive over a week ago on an outpatient basis. The diagnosis was confirmed here in the hospital. His is admitted for the same. The patient may have a limited Covid 19 related pneumonia based on chest x-ray findings. Patient a lso has a mild hypoxic respiratory failure addition to various other constitutional symptoms. The patient has been vaccinated 2 without any boosters. This is his first infection with Covid 19 Acute hypoxic respiratory failure secondary to above and suspected superimposed bacterial pneumonia with elevated pro calcitonin, currently on AirVo high flow oxygen completed Zosyn COPD and the patient smokes up to 2 pack of cigarettes a day with a component of COPD exacerbation Generalized weakness and lethargy and fatigue along with some altered level of consciousness, with a negative CAT scan of the brain and the patient is improving. D-dimer is at low Diabetes mellitus type 2, poorly controlled and outpatient basis with an elevated HbA1c level and the patient is currently on Levemir insulin 24 units and a sliding scale coverage. Hypothyroidism Hypertension Hyperlipidemia Plan: The patient was seen and evaluated Labs and medications reviewed Continue the current treatment plan Transition to 15 L high flow nasal cannula Titrate the FiO2 as tolerated We will continue to follow I have personally seen and examined the patient, performed the documentation and the assessment and plan as written. Number of minutes spent on the visit: 10.
[2023-08-20 17:11] LABS: Glucose,Whole Blood 338 mg/dL (70-110)
[2023-08-20] MEDS: CITALOPRAM HYDROBROMIDE 20 MG TAB PO SCH (20:31)
[2023-08-20] MEDS: ASCORBIC ACID 500 MG TAB PO SCH (20:31)
[2023-08-20] MEDS: INSULIN DETEMIR (LEVEMIR) 100 UNIT/ML SYR SQ SCH (20:31)
[2023-08-20] MEDS: ATORVASTATIN 20 MG TAB PO SCH (20:31)
[2023-08-20 20:41] LABS: Glucose,Whole Blood 287 mg/dL (70-110)
--- NOTE | 2023-08-20 22:07 | P.PN ---
Subjective Progress Note Date: 08/20/23 Patient has been moved out of the ICU continues on airvo oxygen support at 60L with FiO2 48%, plan is for patient to be weaned off the airvo and placed on hi flow cannula. Patient up to 1500 on his IS. IV antibiotics have been discontinued. He is agitated and is hoping to be able to be discharged soon. 08/20/2023 Patient on the medical floor. Has been weaned off airvo currently on 15L hi flow nasal cannula. He is encouraged to use incentive spirometer currently pulling 1500. He has reported no BM in days. He had a follow up chest xray today shows low lung volumes with a generalized hazy appearance which could represent bibasilar atelectasis. Review of Systems Constitutional: Denied any fatigue denied any fever. Cardio vascular: denied any chest pain, palpitations Gastrointestinal: denied any nausea, vomiting, diarrhea Pulmonary: Denied any shortness of breath cough Neurologic denied any new focal deficits All inpatient medications were reviewed and appropriate changes in these medications as dictated in the interval history and assessment and plan. PHYSICAL EXAMINATION: GENERAL: The patient is alert and oriented x3, not in any acute distress. Well developed, well nourished. HEENT: Pupils are round and equally reacting to light. EOMI. No scleral icterus. No conjunctival pallor. Normocephalic, atraumatic. No pharyngeal erythema. No thyromegaly. CARDIOVASCULAR: S1 and S2 present. No murmurs, rubs, or gallops. PULMONARY: Chest is clear to auscultation, no wheezing or crackles. ABDOMEN: Soft, nontender, nondistended, normoactive bowel sounds. No palpable organomegaly. MUSCULOSKELETAL: No joint swelling or deformity. EXTREMITIES: No cyanosis, clubbing, or pedal edema. NEUROLOGICAL: Gross neurological examination did not reveal any focal deficits. SKIN: No rashes. Assessment Acute covid 19 infection with underlying pneumonia and sepsis with elevated inflammatory markers. Acute hypoxic respiratory failure secondary to acute covid infection and COPD exacerbation mild COPD exacerbation Elevated D Dimer with no evidence of pulmonary embolism. Chronic nicotine use Diabetes Mellitus type 2 HX of coronary artery disease and prior cardiac stenting Gastroesophageal reflux disease Hypthyroidism Hypertension currently hypotensive Hyperlipidemia GI prophylaxis DVT prophylaxis Full Code Plan Continue to encourage incentive spirometer 10 x an hour Continue on oxygen support and wean as tolerated Continue on sliding scale insulin and ACHS accuchecks, levemir has been increased at HS and also scheduled insulin added for improved glycemic control. IV zosyn has been discontinued patient has completed course of therapy. Patient continues on 10 day course of oral dexamethasone; currently on day 9. He remains on bronchodilators and recommending aggresive bronchopulmonary hygiene Encouarged to increase activity level as tolerated Continue all other medications and supportive care. The impression and plan of care has been dictated by Sherlyn Blancas, Nurse Practitioner as directed. Dr. Darrel MD I have performed a history and physical examination and medical decision making of this patient, discussed the same with the dictator, and agree with the dictators assessment and plan as written, documented as a scribe. Based on total visit time, I have performed more than 50% of this visit. Objective - Vital Signs Vital signs: Vital Signs Temp 98.4 F 08/20/23 20:00 Pulse 61 08/20/23 20:00 Resp 17 08/20/23 20:00 BP 114/64 08/20/23 20:00 Pulse Ox 100 08/20/23 20:00 FiO2 50 08/20/23 09:59 Intake & Output 08/20/23 08/20/23 08/21/23 06:59 18:59 06:59 Output Total 1100 Balance -1100 Output: Urine 1100 Other: Voiding Method Urinal # Voids 1 # Bowel Movements 1 - Labs CBC & Chem 7: 08/19/23 04:29 08/19/23 04:29 Labs: Abnormal Lab Results - Last 24 Hours (Table) 08/20/23 08/20/23 08/20/23 Range/Units 06:43 11: 17:09 POC Glucose (mg/dL) 134 H 279 H 338 H (70-110) mg/dL 08/20/23 Range/Units 20:39 POC Glucose (mg/dL) 287 H (70-110) mg/dL Assessment and Plan Time with Patient: Less than 30
[2023-08-21] MEDS: SODIUM CHLORIDE 0.9% 1,000 ML IV SCH (00:34)
[2023-08-21 06:03] LABS: Glucose,Whole Blood 184 mg/dL (70-110)
[2023-08-21] MEDS: carvediloL 12.5 MG TAB PO SCH ×2 (06:41→17:16)
[2023-08-21] MEDS: ASPIRIN 325 MG TAB PO SCH (06:41)
[2023-08-21] MEDS: MELOXICAM 7.5 MG TAB PO SCH (06:41)
[2023-08-21] MEDS: CHOLECALCIFEROL 125 MCG (5000 IU) TABLET PO SCH (06:41)
[2023-08-21] MEDS: LORATADINE 10 MG TAB PO SCH (06:41)
[2023-08-21] MEDS: PANTOPRAZOLE 40 MG TABLET PO SCH (06:42)
[2023-08-21] MEDS: INSULIN ASPART (NovoLOG) 100 UNIT/ML VIAL SQ SCH ×7 (06:42→23:07)
[2023-08-21] MEDS: LEVOTHYROXINE 137 MCG TAB PO SCH (06:44)
[2023-08-21 07:21] LABS: Sodium 135 mmol/L (137-145)
[2023-08-21 07:22] LABS: African American GFR (CKD) >90 (>60 ml/min/1.73 sqM); Anion Gap 4 mmol/L; Blood Urea Nitrogen 14 mg/dL (9-20); Calcium 8.6 mg/dL (8.4-10.2); Carbon Dioxide 32 mmol/L (22-30); Chloride 99 mmol/L (98-107); Glucose 180 mg/dL (74-99); Non-African American GFR(CKD) >90 (>60 ml/min/1.73 sqM); Potassium 4.1 mmol/L (3.5-5.1)
[2023-08-21] MEDS: ENOXAPARIN 40 MG/0.4 ML SYRINGE SQ SCH (07:45)
[2023-08-21] MEDS: dexAMETHasone 2 MG TAB PO SCH (07:45)
[2023-08-21] MEDS: ZINC SULFATE 220 MG CAP PO SCH (07:46)
[2023-08-21] MEDS: guaiFENesin 600 MG TABLET.ER PO SCH ×4 (07:46→23:06)
[2023-08-21] MEDS: buPROPion XL 150 MG TAB.ER.24H PO SCH ×2 (07:46→23:07)
[2023-08-21] MEDS: MULTIVITAMINS, THERA 1 EACH TAB PO SCH (07:46)
[2023-08-21] MEDS: NICOTINE 21MG/24HR PATCH TRANSDERM SCH (07:46)
[2023-08-21] MEDS: ALBUTEROL HFA INHALER INHALATION SCH ×4 (08:21→21:14)
[2023-08-21] MEDS: SYMBICORT 160-4.5 MCG INHALER INHALATION SCH ×2 (08:21→21:13)
[2023-08-21] MEDS: TIOTROPIUM 2.5 MCG INHALER INHALATION SCH (08:23)
[2023-08-21 11:31] LABS: Glucose,Whole Blood 279 mg/dL (70-110)
--- NOTE | 2023-08-21 14:02 | P.PN ---
Subjective Progress Note Date: 08/21/23 Patient is 68-year-old male presents emergency department for altered mental status. Patient has been positive for COVID-19 for 7 days. He's been sick and weak for the last 2 weeks. Currently patient is brought in by EMS after his family member called for concerns of altered mental status. . The patient been feeling lethargic, weak, and becoming more incoherent and at the same time feeling tired and fatigued without any stamina or energy. His oral intake has also been diminished and the patient was complaining of some shortness of breath in addition. He has not been infected with Covid 19 in the past and this is current infection. His symptoms started approximately 10 days ago and the melinda ent tested positive approximately a week ago based on an outpatient. He has not received any treatment on outpatient basis. Patient is vaccinated for COVID-19 2 and the patient not been infected in the past.. Complains of total body pain, cough, shortness of breath.. The patient's is admitted for the same and currently she is hospitalized for Covid 19 infection and pneumonia. He has no focal neurological deficit and a CAT scan of the brain was negative. The chest x-ray showed no acute abnormalities. He has COPD. There is some mild increased interstitial markings bilaterally which could reflect bronchitis or limited Covid 19 related pneumonia changes. The patient is currently on 2 L of oxygen nasal cannula with pulse ox of 93% patient is running a low-grade fever. Also, his echoes at 10.1 with a hemoglobin of 14.6 and a platelet count of 146. D-dimer is at 0.6. Sodium is at 134 with a potassium level of 3.1. BUN is 16 with a creatinine of 0.4. Pro-calcitonin level is at 1.2. TSH 0.8. LDH level is at 117. On today's evaluation of 08/10/2023, seeing the patient for a follow-up. Slightly improved compared to yesterday. Still having issues with lethargy and weakness. No altered mentation at this point in time. No nausea and emesis. He has a congested cough as the patient has advanced COPD and is a chronic smoker. He remains on Decadron. Some elevation of blood sugar is noted and the patient's HbA1c level is at 9.6 indicating portal blood sugar control. The d- dimer is at 0.6. TSH 0.8. Pro-calcitonin level was interestingly elevated at 1.2. No clear indication for an underlying bacterial infection at this point in time. The patient remains on Lovenox for DVT prophylaxis. Home medications of his COPD remains on Symbicort and albuterol HFA [id number]. The patient is seen today 08/11/2023 in follow-up on the regular medical floor. He is currently resting comfortably in bed. Awake and alert in no acute distress. He is sitting up in bed. He is maintaining O2 saturations in the 90s on room air. His a dry nonproductive cough. White count 7.6. Hemoglobin 12.0. Platelets 207. Sodium 136. Potassium 4.2. Bicarb 27. BUN 24. Creatinine 0.49. Glucose 108. AST 22. ALT 19. He is continued on Symbicort, Spiriva, albuterol, vitamin supplements. Maintained on Decadron. Lovenox for DVT prophylaxis. NicoDerm patch in place. The patient is seen today 08/17/2023 in follow-up on the regular medical floor. He was transferred out of the intensive care unit yesterday. He is sitting up in a chair. He is awake and alert in no acute distress. He's afebrile. Hemodynamically stable. He is on AirVo hypo-oxygen at 60 L and 50% FiO2. He remains on Zosyn. Continued on Decadron and Lovenox. Continued on vitamin lui pplements. Remains on albuterol, Symbicort, Spiriva. NicoDerm patch in place. Blood sugar 262. Calcium 1.9. The patient is seen today 08/18/2023 in follow-up on the regular medical floor. He has sitting up in a chair at the bedside. Awake and alert in no acute distress. He is still on AirVo high flow oxygen at 60 L and 50% FiO2. Today's chest x-ray continues to show similar basilar airspace opacities. His pro calcitonin was 0.78. He is continued on Zosyn. Continues on Decadron, Lovenox, vitamin supplements. Remains on Symbicort, albuterol, Spiriva. NicoDerm patch in place. He has normal saline at KVO. The patient is seen today 08/19/2023 in follow-up on the regular medical floor. He is awake and alert. Sitting up in a chair. Continued on AirVo high flow oxygen at 60 L and 50% FiO2. His recent pro calcitonin was down to 0.78. He is continued on Zosyn. He has normal saline at 25 ML's per hour. White count 9.3. Hemoglobin 11.8. Platelets 381. Sodium 136. Potassium 4.0. Bicarb 31. BUN 9.6. Creatinine 0.4. Glucose 149. He is continued on Symbicort and Spiriva and albuterol. Maintained on Decadron. Lovenox for DVT prophylaxis. NicoDerm patch in place. Continued on vitamin supplements. The patient is seen today 08/20/2023 in follow-up on the regular medical floor. He is awake and alert in no acute distress. He is currently on AirVo high flow oxygen at 45 L and 50% FiO2. Chest x-ray continues to show low lung volumes with generalized hazy appearance which could represent bibasilar atelectasis. Blood sugar 134. He is continued on Symbicort, Spiriva, albuterol, Decadron and Lovenox for DVT prophylaxis. NicoDerm patch in place. Remains on vitamin supplements. The patient is seen today 08/21/2023 in follow-up on the regular medical floor. He is sitting up in a chair at the bedside. Awake and alert in no acute distress. He has been transitioned to 12 L high flow nasal cannula. He is feeling well. No worsening shortness of breath, cough or congestion. He is continue on Symbicort, Spiriva, albuterol, Decadron. Lovenox for DVT prophylaxis. Vitamin supplements. NicoDerm patch in place. Sodium 135. Potassium 4.1. Bicarb 32. BUN 14. Creatinine 0.40. Glucose 180. Objective - Vital Signs Vital signs: Vital Signs Temp 98.3 F 08/21/23 08:01 Pulse 54 L 08/21/23 08:01 Resp 22 08/21/23 11:11 BP 134/76 08/21/23 08:01 Pulse Ox 99 08/21/23 11:54 FiO2 50 08/20/23 09:59 Intake & Output 08/20/23 08/21/23 08/21/23 18:59 06:59 18:59 Other: Voiding Method Urinal Toilet Urinal # Voids 1 # Bowel Movements 1 - Exam GENERAL EXAM: Alert, pleasant 68-year-old male, up in a chair, on 12 L high flow nasal cannula, in no apparent distress. HEAD: Normocephalic. EYES: Normal reaction of pupils, equal size. NOSE: Clear with pink turbinates. THROAT: No erythema or exudates. NECK: No masses, no JVD. CHEST: No chest wall deformity. LUNGS: Equal air entry with crackles in the bilateral bases. CVS: S1 and S2 normal with no audible murmur, regular rhythm. ABDOMEN: No hepatosplenomegaly, normal bowel sounds, no guarding or rigidity. SPINE: No scoliosis or deformity SKIN: No rashes CENTRAL NERVOUS SYSTEM: No focal deficits, tone is normal in all 4 extremities. EXTREMITIES: There is no peripheral edema. No clubbing, no cyanosis. Peripheral pulses are intact. - Labs CBC & Chem 7: 08/19/23 04:29 08/21/23 05:46 Labs: Abnormal Lab Results - Last 24 Hours (Table) 08/20/23 08/20/23 08/21/23 Range/Units 17:09 20:39 05:46 Sodium 135 L (137-145) mmol/L Carbon Dioxide 32 H (22-30) mmol/L Creatinine 0.40 L (0.66-1.25) mg/dL Glucose 180 H (74-99) mg/dL POC Glucose (mg/dL) 338 H 287 H (70-110) mg/dL 08/21/23 08/21/23 Range/Units 06:02 11:26 Sodium (137-145) mmol/L Carbon Dioxide (22-30) mmol/L Creatinine (0.66-1.25) mg/dL Glucose (74-99) mg/dL POC Glucose (mg/dL) 184 H 279 H (70-110) mg/dL Assessment and Plan Assessment: Covid 19 infection. Symptoms started over 10 days ago and the patient tested positive over a week ago on an outpatient basis. The diagnosis was confirmed here in the hospital. His is admitted for the same. The patient may have a limited Covid 19 related pneumonia based on chest x-ray findings. Patient also has a mild hypoxic respiratory failure addition to various other constitutional symptoms. The patient has been vaccinated 2 without any boosters. This is his first infection with Covid 19 Acute hypoxic respiratory failure secondary to above and suspected superimposed bacterial pneumonia with elevated pro calcitonin, currently on 12 L high flow nasal cannula, completed Zosyn COPD and the patient smokes up to 2 pack of cigarettes a day with a component of COPD exacerbation Generalized weakness and lethargy and fatigue along with some altered level of consciousness, with a negative CAT scan of the brain and the patient is im proving. D-dimer is at low Diabetes mellitus type 2, poorly controlled and outpatient basis with an elevated HbA1c level and the patient is currently on Levemir insulin 24 units and a sliding scale coverage. Hypothyroidism Hypertension Hyperlipidemia Plan: The patient was seen and evaluated Labs and medications reviewed Continue the current treatment plan Transitioned to 12 L high flow nasal cannula Titrate down the FiO2 as tolerated Home once able to tolerate 4-5 L We will continue to follow I have personally seen and examined the patient, performed the documentation and the assessment and plan as written. Number of minutes spent on the visit: 10.
[2023-08-21 17:04] LABS: Glucose,Whole Blood 313 mg/dL (70-110)
[2023-08-21 20:19] LABS: Glucose,Whole Blood 319 mg/dL (70-110)
[2023-08-21] MEDS: CITALOPRAM HYDROBROMIDE 20 MG TAB PO SCH (23:05)
[2023-08-21] MEDS: ASCORBIC ACID 500 MG TAB PO SCH (23:05)
[2023-08-21] MEDS: ATORVASTATIN 20 MG TAB PO SCH (23:06)
[2023-08-21] MEDS: INSULIN DETEMIR (LEVEMIR) 100 UNIT/ML SYR SQ SCH (23:08)
[2023-08-22 03:24] VITALS: RESP 18
[2023-08-22] MEDS: ASPIRIN 325 MG TAB PO SCH (06:14)
[2023-08-22] MEDS: LORATADINE 10 MG TAB PO SCH (06:14)
[2023-08-22] MEDS: carvediloL 12.5 MG TAB PO SCH (06:14)
[2023-08-22] MEDS: PANTOPRAZOLE 40 MG TABLET PO SCH (06:14)
[2023-08-22] MEDS: CHOLECALCIFEROL 125 MCG (5000 IU) TABLET PO SCH (06:14)
[2023-08-22] MEDS: MELOXICAM 7.5 MG TAB PO SCH (06:15)
[2023-08-22 06:28] LABS: Glucose,Whole Blood 90 mg/dL (70-110)
[2023-08-22] MEDS: INSULIN ASPART (NovoLOG) 100 UNIT/ML VIAL SQ SCH ×4 (06:36→11:41)
[2023-08-22] MEDS: LEVOTHYROXINE 137 MCG TAB PO SCH (06:55)
[2023-08-22 08:03] VITALS: BP 144/78; PULSE 41; TEMP 97.6
[2023-08-22] MEDS: SODIUM CHLORIDE 0.9% 1,000 ML IV SCH (08:04)
[2023-08-22] MEDS: ZINC SULFATE 220 MG CAP PO SCH (08:09)
[2023-08-22] MEDS: dexAMETHasone 2 MG TAB PO SCH (08:09)
[2023-08-22] MEDS: NICOTINE 21MG/24HR PATCH TRANSDERM SCH (08:10)
[2023-08-22] MEDS: MULTIVITAMINS, THERA 1 EACH TAB PO SCH (08:10)
[2023-08-22] MEDS: guaiFENesin 600 MG TABLET.ER PO SCH ×2 (08:10→11:41)
[2023-08-22] MEDS: ENOXAPARIN 40 MG/0.4 ML SYRINGE SQ SCH (08:10)
[2023-08-22] MEDS: buPROPion XL 150 MG TAB.ER.24H PO SCH (08:11)
--- NOTE | 2023-08-22 08:24 | P.PN ---
Subjective Progress Note Date: 08/21/23 Patient has been moved out of the ICU continues on airvo oxygen support at 60L with FiO2 48%, plan is for patient to be weaned off the airvo and placed on hi flow cannula. Patient up to 1500 on his IS. IV antibiotics have been discontinued. He is agitated and is hoping to be able to be discharged soon. 08/20/2023 Patient on the medical floor. Has been weaned off airvo currently on 15L hi flow nasal cannula. He is encouraged to use incentive spirometer currently pulling 1500. He has reported no BM in days. He had a follow up chest xray today shows low lung volumes with a generalized hazy appearance which could represent bibasilar atelectasis. 08/21/2023 Patient is evaluated today sitting up in the chair. He is currently on 14L hi flow cannula. Using incentive spirometer. He is on oral dexamethasone. Breathing better. Sodium 135, renal function stable. Blood glucose in the 300s. Review of Systems Constitutional: Denied any fatigue denied any fever. Cardio vascular: denied any chest pain, palpitations Gastrointestinal: denied any nausea, vomiting, diarrhea Pulmonary: Denied any shortness of breath cough Neurologic denied any new focal deficits All inpatient medications were reviewed and appropriate changes in these medications as dictated in the interval history and assessment and plan. PHYSICAL EXAMINATION: GENERAL: The patient is alert and oriented x3, not in any acute distress. Well developed, well nourished. HEENT: Pupils are round and equally reacting to light. EOMI. No scleral icterus. No conjunctival pallor. Normocephalic, atraumatic. No pharyngeal erythema. No thyromegaly. CARDIOVASCULAR: S1 and S2 present. No murmurs, rubs, or gallops. PULMONARY: Chest is clear to auscultation, no wheezing or crackles. ABDOMEN: Soft, nontender, nondistended, normoactive bowel sounds. No palpable organomegaly. MUSCULOSKELETAL: No joint swelling or deformity. EXTREMITIES: No cyanosis, clubbing, or pedal edema. NEUROLOGICAL: Gross neurological examination did not reveal any focal deficits. SKIN: No rashes. Assessment Acute covid 19 infection with underlying pneumonia and sepsis with elevated inflammatory markers. Acute hypoxic respiratory failure secondary to acute covid infection and COPD exacerbation mild COPD exacerbation Elevated D Dimer with no evidence of pulmonary embolism. Chronic nicotine use Diabetes Mellitus type 2 HX of coronary artery disease and prior cardiac stenting Gastroesophageal reflux disease Hypthyroidism Hypertension currently hypotensive Hyperlipidemia GI prophylaxis DVT prophylaxis Full Code Plan Continue to encourage incentive spirometer 10 x an hour Continue on oxygen support and wean as tolerated Continue on sliding scale insulin and ACHS accuchecks, levemir has been increased at HS and also scheduled insulin added for improved glycemic control. IV zosyn has been discontinued patient has completed course of therapy. Patient continues on 10 day course of oral dexamethasone; currently on day 10 He remains on bronchodilators and recommending aggresive bronchopulmonary hygiene Encouarged to increase activity level as tolerated Continue all other medications and supportive care. The impression and plan of care has been dictated by Sherlyn Blancas, Nurse Practitioner as directed. Dr. Darrel MD I have performed a history and physical examination and medical decision making of this patient, discussed the same with the dictator, and agree with the dictators assessment and plan as written, documented as a scribe. Based on total visit time, I have performed more than 50% of this visit. Objective - Vital Signs Vital signs: Vital Signs Temp 98.2 F 08/22/23 01:50 Pulse 56 L 08/22/23 01:50 Resp 18 08/22/23 01:50 BP 129/77 08/22/23 01:50 Pulse Ox 94 L 08/22/23 01:50 FiO2 50 08/20/23 09:59 Intake & Output 08/21/23 08/21/23 08/22/23 06:59 18:59 06:59 Intake Total 450 Balance 450 Intake: Oral 450 Other: Voiding Method Toilet Toilet Urinal Urinal - Labs CBC & Chem 7: 08/19/23 04:29 08/21/23 05:46 Labs: Abnormal Lab Results - Last 24 Hours (Table) 08/21/23 08/21/23 08/21/23 Range/Units 05:46 06:02 11:26 Sodium 135 L (137-145) mmol/L Carbon Dioxide 32 H (22-30) mmol/L Creatinine 0.40 L (0.66-1.25) mg/dL Glucose 180 H (74-99) mg/dL POC Glucose (mg/dL) 184 H 279 H (70-110) mg/dL 08/21/23 08/21/23 Range/Units 17:02 20:17 Sodium (137-145) mmol/L Carbon Dioxide (22-30) mmol/L Creatinine (0.66-1.25) mg/dL Glucose (74-99) mg/dL POC Glucose (mg/dL) 313 H 319 H (70-110) mg/dL Assessment and Plan Time with Patient: Less than 30
[2023-08-22] MEDS: SYMBICORT 160-4.5 MCG INHALER INHALATION SCH (08:37)
[2023-08-22] MEDS: TIOTROPIUM 2.5 MCG INHALER INHALATION SCH (08:37)
[2023-08-22] MEDS: ALBUTEROL HFA INHALER INHALATION SCH ×2 (08:37→11:37)
[2023-08-22 11:33] LABS: Glucose,Whole Blood 264 mg/dL (70-110)
--- NOTE | 2023-08-22 15:26 | P.PN ---
Subjective Progress Note Date: 08/22/23 Patient is 68-year-old male presents emergency department for altered mental status. Patient has been positive for COVID-19 for 7 days. He's been sick and weak for the last 2 weeks. Currently patient is brought in by EMS after his family member called for concerns of altered mental status. . The patient been feeling lethargic, weak, and becoming more incoherent and at the same time feeling tired and fatigued without any stamina or energy. His oral intake has also been diminished and the patient was complaining of some shortness of breath in addition. He has not been infected with Covid 19 in the past and this is current infection. His symptoms started approximately 10 days ago and the melinda ent tested positive approximately a week ago based on an outpatient. He has not received any treatment on outpatient basis. Patient is vaccinated for COVID-19 2 and the patient not been infected in the past.. Complains of total body pain, cough, shortness of breath.. The patient's is admitted for the same and currently she is hospitalized for Covid 19 infection and pneumonia. He has no focal neurological deficit and a CAT scan of the brain was negative. The chest x-ray showed no acute abnormalities. He has COPD. There is some mild increased interstitial markings bilaterally which could reflect bronchitis or limited Covid 19 related pneumonia changes. The patient is currently on 2 L of oxygen nasal cannula with pulse ox of 93% patient is running a low-grade fever. Also, his echoes at 10.1 with a hemoglobin of 14.6 and a platelet count of 146. D-dimer is at 0.6. Sodium is at 134 with a potassium level of 3.1. BUN is 16 with a creatinine of 0.4. Pro-calcitonin level is at 1.2. TSH 0.8. LDH level is at 117. On today's evaluation of 08/10/2023, seeing the patient for a follow-up. Slightly improved compared to yesterday. Still having issues with lethargy and weakness. No altered mentation at this point in time. No nausea and emesis. He has a congested cough as the patient has advanced COPD and is a chronic smoker. He remains on Decadron. Some elevation of blood sugar is noted and the patient's HbA1c level is at 9.6 indicating portal blood sugar control. The d- dimer is at 0.6. TSH 0.8. Pro-calcitonin level was interestingly elevated at 1.2. No clear indication for an underlying bacterial infection at this point in time. The patient remains on Lovenox for DVT prophylaxis. Home medications of his COPD remains on Symbicort and albuterol HFA [id number]. The patient is seen today 08/11/2023 in follow-up on the regular medical floor. He is currently resting comfortably in bed. Awake and alert in no acute distress. He is sitting up in bed. He is maintaining O2 saturations in the 90s on room air. His a dry nonproductive cough. White count 7.6. Hemoglobin 12.0. Platelets 207. Sodium 136. Potassium 4.2. Bicarb 27. BUN 24. Creatinine 0.49. Glucose 108. AST 22. ALT 19. He is continued on Symbicort, Spiriva, albuterol, vitamin supplements. Maintained on Decadron. Lovenox for DVT prophylaxis. NicoDerm patch in place. The patient is seen today 08/17/2023 in follow-up on the regular medical floor. He was transferred out of the intensive care unit yesterday. He is sitting up in a chair. He is awake and alert in no acute distress. He's afebrile. Hemodynamically stable. He is on AirVo hypo-oxygen at 60 L and 50% FiO2. He remains on Zosyn. Continued on Decadron and Lovenox. Continued on vitamin lui pplements. Remains on albuterol, Symbicort, Spiriva. NicoDerm patch in place. Blood sugar 262. Calcium 1.9. The patient is seen today 08/18/2023 in follow-up on the regular medical floor. He has sitting up in a chair at the bedside. Awake and alert in no acute distress. He is still on AirVo high flow oxygen at 60 L and 50% FiO2. Today's chest x-ray continues to show similar basilar airspace opacities. His pro calcitonin was 0.78. He is continued on Zosyn. Continues on Decadron, Lovenox, vitamin supplements. Remains on Symbicort, albuterol, Spiriva. NicoDerm patch in place. He has normal saline at KVO. The patient is seen today 08/19/2023 in follow-up on the regular medical floor. He is awake and alert. Sitting up in a chair. Continued on AirVo high flow oxygen at 60 L and 50% FiO2. His recent pro calcitonin was down to 0.78. He is continued on Zosyn. He has normal saline at 25 ML's per hour. White count 9.3. Hemoglobin 11.8. Platelets 381. Sodium 136. Potassium 4.0. Bicarb 31. BUN 9.6. Creatinine 0.4. Glucose 149. He is continued on Symbicort and Spiriva and albuterol. Maintained on Decadron. Lovenox for DVT prophylaxis. NicoDerm patch in place. Continued on vitamin supplements. The patient is seen today 08/20/2023 in follow-up on the regular medical floor. He is awake and alert in no acute distress. He is currently on AirVo high flow oxygen at 45 L and 50% FiO2. Chest x-ray continues to show low lung volumes with generalized hazy appearance which could represent bibasilar atelectasis. Blood sugar 134. He is continued on Symbicort, Spiriva, albuterol, Decadron and Lovenox for DVT prophylaxis. NicoDerm patch in place. Remains on vitamin supplements. The patient is seen today 08/21/2023 in follow-up on the regular medical floor. He is sitting up in a chair at the bedside. Awake and alert in no acute distress. He has been transitioned to 12 L high flow nasal cannula. He is feeling well. No worsening shortness of breath, cough or congestion. He is continue on Symbicort, Spiriva, albuterol, Decadron. Lovenox for DVT prophylaxis. Vitamin supplements. NicoDerm patch in place. Sodium 135. Potassium 4.1. Bicarb 32. BUN 14. Creatinine 0.40. Glucose 180. The patient is seen today 08/22/2023 in follow-up on the regular medical floor. He is awake and alert in no acute distress. Sitting up in a chair at the [facility]. He has actually been titrated down to 3 L/m per nasal cannula. Denies any worsening shortness of breath, cough or congestion. He is continued on Symbicort, Spiriva, albuterol, Decadron. Lovenox for DVT prophylaxis. Vitamin supplements. NicoDerm patch in place. Objective - Vital Signs Vital signs: Vital Signs Temp 97.6 F 08/22/23 06:54 Pulse 41 L 08/22/23 06:54 Resp 18 08/22/23 06:54 BP 144/78 08/22/23 06:54 Pulse Ox 88 L 08/22/23 10:02 FiO2 50 08/20/23 09:59 Intake & Output 08/21/23 08/22/23 08/22/23 18:59 06:59 18:59 Intake Total 450 Output Total 1450 Balance 450 -1450 Intake: Oral 450 Output: Urine 1450 Other: Voiding Method Toilet Toilet Urinal Urinal # Voids 1 - Exam GENERAL EXAM: Alert, pleasant 68-year-old male, on 3 liters nasal cannula, in no apparent distress. HEAD: Normocephalic. EYES: Normal reaction of pupils, equal size. NOSE: Clear with pink turbinates. THROAT: No erythema or exudates. NECK: No masses, no JVD. CHEST: No chest wall deformity. LUNGS: Equal air entry with crackles in the bilateral bases. CVS: S1 and S2 normal with no audible murmur, regular rhythm. ABDOMEN: No hepatosplenomegaly, normal bowel sounds, no guarding or rigidity. SPINE: No scoliosis or deformity SKIN: No rashes CENTRAL NERVOUS SYSTEM: No focal deficits, tone is normal in all 4 extremities. EXTREMITIES: There is no peripheral edema. No clubbing, no cyanosis. Peripheral pulses are intact. - Labs CBC & Chem 7: 08/19/23 04:29 08/21/23 05:46 Labs: Abnormal Lab Results - Last 24 Hours (Table) 08/21/23 08/21/23 08/22/23 Range/Units 17:02 20:17 11:31 POC Glucose (mg/dL) 313 H 319 H 264 H (70-110) mg/dL Assessment and Plan Assessment: Covid 19 infection. Symptoms started over 10 days ago and the patient tested positive over a week ago on an outpatient basis. The diagnosis was confirmed here in the hospital. His is admitted for the same. The patient may have a limited Covid 19 related pneumonia based on chest x-ray findings. Patient also has a mild hypoxic respiratory failure addition to various other constitutional symptoms. The patient has been vaccinated 2 without any boosters. This is his first infection with Covid 19 Acute hypoxic respiratory failure secondary to above and suspected superimposed bacterial pneumonia with elevated pro calcitonin, currently on 3 L nasal cannula, completed Zosyn COPD and the patient smokes up to 2 pack of cigarettes a day with a component of COPD exacerbation Generalized weakness and lethargy and fatigue along with some altered level of consciousness, with a negative CAT scan of the brain and the patient is improving. D-dimer is at low Diabetes mellitus type 2, poorly controlled and outpatient basis with an elevated HbA1c level and the patient is currently on Levemir insulin 24 units an d a sliding scale coverage. Hypothyroidism Hypertension Hyperlipidemia Plan: The patient was seen and evaluated Labs and medications reviewed Oxygen currently at 3 L nasal cannula Cleared for discharge from the pulmonary standpoint Follow-up in our office in 1 week I have personally seen and examined the patient, performed the documentation and the assessment and plan as written. Number of minutes spent on the visit: 10.
--- NOTE | 2023-08-23 13:16 | P.DS ---
Providers Date of admission: 08/08/23 22:02 Attending physician: Dajuan Cifuentes Consults: 08/08/23 22:02 Consult Physician Routine Consulting Provider: Cynthia Sanchez Consult Reason/Comments: hypoxia Do you want consulting provider notified?: Yes Primary care physician: Dalia Canales Hospital Course: Final Diagnosis Acute covid 19 infection with underlying pneumonia and sepsis with elevated inflammatory markers. Acute hypoxic respiratory failure secondary to acute covid infection and COPD exacerbation mild COPD exacerbation Elevated D Dimer with no evidence of pulmonary embolism. Chronic nicotine use Diabetes Mellitus type 2 HX of coronary artery disease and prior cardiac stenting Gastroesophageal reflux disease Hypthyroidism Hypertension currently hypotensive Hyperlipidemia GI prophylaxis DVT prophylaxis Full Code Discharge disposition Patient is stable for discharge home has been set up with home oxygen at 2 L nasal cannula. Patient to continue with incentive spirometer 10 times an hour while awake. Patient will continue on an oral prednisone taper. Recommended to continue on bronchodilators and inhaled steroids. Patient to repeat a BMP and CBC in 2-3 days. Patient will require close follow-up with pulmonary services has an appointment made for September 03 at 10:15 AM. Additionally patient has a appointment scheduled with his primary provider Dr. Dalia Canales on June 28 at 3 PM. Hospital Course This is a 68-year-old patient follows Dr. Dalia Canales. Chronic stable medical conditions include CAD with stent in 2011, diabetes, GERD, hypertension, hyperlipidemia, prostatitis, hypothyroid,. Patient is a smoker. Patient tested positive for COVID 6 days ago prior to admission. Started getting symptoms or shortness of breath cough or sputum that is not able to expectorate. In the last 2 days symptoms became much worse with fever, chills, body aches and decreased appetite. Patient's pulse ox was down to 90% on room air. Patient's is also admitted to the hospital COVID. Patient also diagnosed with COVID. Admitted to the hospital with consult to pulmonary service and admitted to the medical floor. Patient was a rapid response for worsening respiratory failure ended up on a 100% nonrebreather. Had a chest x-ray done which reveals a small right-sided pleural effusion and received a dose of IV Lasix. Was transferred to the intensive care unit and was placed on a 100% FiO2 BiPAP /. D-Dimer is elevated at 2.11 which is increased from 0.60 on admission. He has been started on IV zosyn empirically as well as PO decadron. Went for chest CTA reveals no d dimer, has bibasilar and right perihilar airspace consolidation. Representing pneumonia. Continued on steroids, antibiotics, inhaled steroids and bronchodilators. Patient did improve was moved out of the ICU on airvo oxygen support with 60L of O2. IV antibiotics have been discontinued he has completed course of therapy. Follow up chest xray shows basilar atelectasis with cleared of pleural effusion. He is given incentive spirometer and encouraged to use. He was able to be weaned to 2L of oxygen and has been up ambulating with increased activity tolerance. White count has normalized to 9.39. Hemoglobin 11.8, Sodium 135, BUN 14, creatinine 0.40. He is afebrile, heart rate in the 50s, blood pressure 144/78, 88% on room air, on 2-L of oxygen for discharge. Lungs are diminished but clear, alert x 4. Discharged home. Please see medication reconciliation for a list of current medications. Thank you for allowing us to participate in the care of this patient. The impression and plan of care has been dictated by Sherlyn Blancas, Nurse Practitioner as directed. Dr. Darrel MD I have performed a history and physical examination and medical decision making of this patient, discussed the same with the dictator, and agree with the dictators assessment and plan as written, documented as a scribe. Based on total visit time, I have performed more than 50% of this visit. Patient Condition at Discharge: Fair Plan - Discharge Summary New Discharge Prescriptions: New Docusate [Colace] 100 mg PO DAILY PRN #0 cap PRN Reason: Constipation methylPREDNISolone Dose Pack [Medrol Dose Pack] 4 mg PO DIRECTED #21 tab guaiFENesin [Mucinex] 600 mg PO QID tab Zinc Sulfate [Orazinc] 220 mg PO DAILY #15 cap Albuterol Inhaler [Ventolin Hfa Inhaler] 2 puff INHALATION RT-QID PRN #1 each PRN Reason: Shortness Of Breath Or Wheezing Continue Meloxicam 15 mg PO AC-BRKFST carvediloL [Coreg*] 12.5 mg PO BID Aspirin EC [Ecotrin] 325 mg PO W/BRKFST Albuterol Sulfate [Proair Hfa] 2 puff INHALATION RT-QID PRN PRN Reason: Shortness Of Breath Mv-Min/Folic/K1/Lycopen/Lutein [Centrum Silver Men Tablet] 1 tab PO DAILY Ascorbic Acid [Vitamin C] 1,000 mg PO HS Fluticasone Propion/Salmeterol [Wixela 500-50 Inhub] 1 puff INHALATION RT-BID Levothyroxine Sodium 137 mcg PO AC-BRKFST metFORMIN HCL 1,000 mg PO BID Glimepiride [Amaryl] 4 mg PO W/BRKFST Famotidine [Pepcid] 20 mg PO BID Atorvastatin [Lipitor] 20 mg PO HS Cholecalciferol [Vitamin D3 (125 Mcg = 5000 Iu)] 125 mcg PO AC-BRKFST Tiotropium [place] [Spiriva Handihaler] 1 cap INHALATION RT-DAILY buPROPion XL [Wellbutrin XL] 150 mg PO BID Citalopram Hydrobromide [CeleXA] 20 mg PO HS Pioglitazone [Actos] 30 mg PO HS Insulin Glargine,Hum.rec.anlog [Toujeo Solostar] 24 units SQ HS Insulin Aspart [NovoLOG Flexpen] 5 - 10 units SQ AC-TID Loratadine [Claritin] 10 mg PO AC-BRKFST Discontinued Omeprazole 20 mg PO AC-BRKFST Lisinopril-Hctz 10-12.5 mg [Zestoretic 10-12.5] 1 tab PO AC-BRKFST Discharge Medication List Albuterol Sulfate [Proair Hfa] 2 puff INHALATION RT-QID PRN 12/26/15 [History] Aspirin EC [Ecotrin] 325 mg PO W/BRKFST 12/26/15 [History] Meloxicam 15 mg PO AC-BRKFST 12/26/15 [History] carvediloL [Coreg*] 12.5 mg PO BID 12/26/15 [History] Ascorbic Acid [Vitamin C] 1,000 mg PO HS 08/08/23 [History] Atorvastatin [Lipitor] 20 mg PO HS 08/08/23 [History] Cholecalciferol [Vitamin D3 (125 Mcg = 5000 Iu)] 125 mcg PO AC-BRKFST 08/08/23 [History] Citalopram Hydrobromide [CeleXA] 20 mg PO HS 08/08/23 [History] Famotidine [Pepcid] 20 mg PO BID 08/08/23 [History] Fluticasone Propion/Salmeterol [Wixela 500-50 Inhub] 1 puff INHALATION RT-BID 08/08/23 [History] Glimepiride [Amaryl] 4 mg PO W/BRKFST 08/08/23 [History] Insulin Aspart [NovoLOG Flexpen] 5 - 10 units SQ AC-TID 08/08/23 [History] Insulin Glargine,Hum.rec.anlog [Toujeo Solostar] 24 units SQ HS 08/08/23 [History] Levothyroxine Sodium 137 mcg PO AC-BRKFST 08/08/23 [History] Loratadine [Claritin] 10 mg PO AC-BRKFST 08/08/23 [History] Mv-Min/Folic/K1/Lycopen/Lutein [Centrum Silver Men Tablet] 1 tab PO DAILY 08/08/23 [History] Pioglitazone [Actos] 30 mg PO HS 08/08/23 [History] Tiotropium [place] [Spiriva Handihaler] 1 cap INHALATION RT-DAILY 08/08/23 [History] buPROPion XL [Wellbutrin XL] 150 mg PO BID 08/08/23 [History] metFORMIN HCL 1,000 mg PO BID 08/08/23 [History] Albuterol Inhaler [Ventolin Hfa Inhaler] 2 puff INHALATION RT-QID PRN #1 each 08/22/23 [Rx] Docusate [Colace] 100 mg PO DAILY PRN #0 cap 08/22/23 [Rx] Zinc Sulfate [Orazinc] 220 mg PO DAILY #15 cap 08/22/23 [Rx] guaiFENesin [Mucinex] 600 mg PO QID tab 08/22/23 [Rx] methylPREDNISolone Dose Pack [Medrol Dose Pack] 4 mg PO DIRECTED #21 tab 08/22/23 [Rx] Follow up Appointment(s)/Referral(s): [facility] [NON-STAFF] - As Needed (oxygen and walker) Dalia Canales DO [Primary Care Provider] - 08/28/23 3:00 pm Omar Schmitt DO [Doctor of Osteopathic Medicine] - 09/03/23 10:15 am [facility]iting Nurse, [NON-STAFF] - As Needed Ambulatory/Diagnostic Orders: Basic Metabolic Panel [LAB.AMB] Location: None Selected Complete Blood Count w/diff [LAB.AMB] Time Frame: 3 Days, Location: None Selected Patient Instructions/Handouts: COVID-19 (Coronavirus Disease 2019) (DC) Discharge Disposition: HOME WITH HOME HEALTH SERVICES
== END 2023-08-22 13:38 | disposition home health service (06) | DRG 871 ==
LOC: EC 19:22 → 4SSUR 22:02 → 2SICU 08-12 06:52 → 4SSUR 08-16 16:13
PROVIDERS: ADMIT Hospitalist; ATTEND Hospitalist
PROC: 3E0333Z Introduction of Anti-inflammatory into Peripheral Vein, Percutaneous Approach (ICD-10-PCS; principal; 2023-08-09)
DX: A41.89 Other specified sepsis (principal); J12.82 Pneumonia due to coronavirus disease 2019; U07.1 COVID-19; J96.01 Acute respiratory failure with hypoxia; J15.9 Unspecified bacterial pneumonia; J44.1 Chronic obstructive pulmonary disease with (acute) exacerbation; J44.0 Chronic obstructive pulmonary disease with (acute) lower respiratory infection; J90 Pleural effusion, not elsewhere classified; E78.5 Hyperlipidemia, unspecified; F17.210 Nicotine dependence, cigarettes, uncomplicated; I10 Essential (primary) hypertension; I25.10 Atherosclerotic heart disease of native coronary artery without angina pectoris; Z95.5 Presence of coronary angioplasty implant and graft; I25.2 Old myocardial infarction; K21.9 Gastro-esophageal reflux disease without esophagitis; F32.A Depression, unspecified; Z79.1 Long term (current) use of non-steroidal anti-inflammatories (NSAID); Z79.4 Long term (current) use of insulin; Z79.51 Long term (current) use of inhaled steroids; Z79.82 Long term (current) use of aspirin; Z79.84 Long term (current) use of oral hypoglycemic drugs; Z79.890 Hormone replacement therapy; Z79.899 Other long term (current) drug therapy
CPT/HCPCS: 36415; 36600; 70450; 71045; 71275; 80048; 80053; 82805; 83036; 83605; 83615; 83735; 84100; 84145; 84443; 84484; 85025; 85027; 85379; 85610; 85730; 86140; 87636; 93005; 94640; 94660; 94760; 96361; 96374; 99285

== ENCOUNTER 2024-04-29 20:15 | Inpatient (IN) | payer MEDICARE ==
[2024-04-29] MEDS ORDERED: MAGNESIUM SULFATE-D5W PMX 200 ML IVPB ONE (20:36)
[2024-04-29] MEDS ORDERED: MORPHINE SULFATE 4 MG/ML SYRINGE ONE (20:37)
[2024-04-30] MEDS ORDERED: LEVOTHYROXINE 88 MCG TAB ONE (06:11)
[2024-04-30] MEDS ORDERED: LEVOTHYROXINE 50 MCG TAB ONE (06:11)
[2024-04-30] MEDS ORDERED: FAMOTIDINE 20 MG TAB ONE ×2 (09:55→21:53)
[2024-04-30] MEDS ORDERED: METOPROLOL TARTRATE 25 MG TAB ONE (09:55)
[2024-04-30] MEDS ORDERED: ASPIRIN 81 MG ONE ×2 (09:55→23:59)
[2024-04-30] MEDS ORDERED: CYANOCOBALAMIN 500 MCG TAB ONE (09:56)
[2024-04-30] MEDS ORDERED: ASCORBIC ACID 500 MG TAB ONE ×2 (09:56→23:59)
[2024-04-30] MEDS ORDERED: ZINC SULFATE 220 MG CAP ONE ×2 (09:56→23:59)
[2024-04-30] MEDS ORDERED: MELOXICAM 7.5 MG TAB ONE (09:56)
[2024-04-30] MEDS ORDERED: CHOLECALCIFEROL 125 MCG (5000 IU) TABLET ONE ×2 (09:56→23:59)
[2024-04-30] MEDS ORDERED: metFORMIN 500 MG TAB ONE ×3 (09:56→23:59)
[2024-04-30] MEDS ORDERED: ACETAMINOPHEN TAB 325 MG TAB ONE (16:54)
[2024-04-30] MEDS ORDERED: methylPREDNISolone SOD SUCCI 40 MG/ML 1 ML VIAL ONE (16:54)
[2024-04-30] MEDS ORDERED: PANTOPRAZOLE 40 MG TABLET PO ONE (16:54)
[2024-04-30] MEDS ORDERED: INSULIN ASPART (NovoLOG) 100 UNIT/ML VIAL SQ ONE (16:55)
[2024-04-30] MEDS ORDERED: CITALOPRAM HYDROBROMIDE 20 MG TAB ONE (21:53)
[2024-04-30] MEDS ORDERED: ATORVASTATIN 20 MG TAB ONE (21:54)
[2024-04-30] MEDS ORDERED: PIOGLITAZONE 30 MG TAB ONE (23:59)
[2024-04-30] MEDS ORDERED: SODIUM CHLORIDE 0.9% 1,000 ML BAG ONE (23:59)
[2024-04-30] MEDS ORDERED: METOPROLOL SUCCINATE (ER) 25 MG TAB.ER.24H PO ONE (23:59)
[2024-05-01] MEDS ORDERED: methylPREDNISolone SOD SUCCI 40 MG/ML 1 ML VIAL ONE ×4 (00:20→23:01)
[2024-05-01] MEDS ORDERED: ACETAMINOPHEN TAB 325 MG TAB ONE ×3 (00:26→21:02)
[2024-05-01] MEDS ORDERED: LEVOTHYROXINE 88 MCG TAB ONE (06:35)
[2024-05-01] MEDS ORDERED: ASPIRIN 81 MG ONE (06:35)
[2024-05-01] MEDS ORDERED: metFORMIN 500 MG TAB ONE ×2 (06:36→20:55)
[2024-05-01] MEDS ORDERED: ASCORBIC ACID 500 MG TAB ONE (06:36)
[2024-05-01] MEDS ORDERED: METOPROLOL SUCCINATE (ER) 25 MG TAB.ER.24H PO ONE (06:36)
[2024-05-01] MEDS ORDERED: FAMOTIDINE 20 MG TAB ONE (06:36)
[2024-05-01] MEDS ORDERED: INSULIN ASPART (NovoLOG) 100 UNIT/ML VIAL SQ ONE (06:37)
[2024-05-01] MEDS ORDERED: CHOLECALCIFEROL 125 MCG (5000 IU) TABLET ONE (06:37)
[2024-05-01] MEDS ORDERED: CYANOCOBALAMIN 500 MCG TAB ONE ×2 (06:37→06:44)
[2024-05-01] MEDS ORDERED: MELOXICAM 7.5 MG TAB ONE (06:37)
[2024-05-01] MEDS ORDERED: ZINC SULFATE 220 MG CAP ONE (07:00)
[2024-05-01] MEDS ORDERED: SYMBICORT 80-4.5 MCG INHALER INHALATION ONE (08:00)
[2024-05-01] MEDS ORDERED: ONDANSETRON 4 MG/2 ML VIAL ONE (09:27)
[2024-05-01] MEDS ORDERED: PANTOPRAZOLE 40 MG TABLET PO ONE (09:27)
[2024-05-01] MEDS ORDERED: HEPARIN SODIUM,PORCINE 5,000 UNIT/ML 1 ML VIAL ONE ×2 (16:57→23:01)
[2024-05-01] MEDS ORDERED: ATORVASTATIN 20 MG TAB ONE (20:55)
[2024-05-01] MEDS ORDERED: CITALOPRAM HYDROBROMIDE 20 MG TAB ONE (20:55)
[2024-05-01] MEDS ORDERED: PIOGLITAZONE 30 MG TAB ONE (23:59)
[2024-05-02] MEDS ORDERED: ASPIRIN 81 MG ONE (06:08)
[2024-05-02] MEDS ORDERED: metFORMIN 500 MG TAB ONE ×2 (06:08→20:32)
[2024-05-02] MEDS ORDERED: ZINC SULFATE 220 MG CAP ONE (06:08)
[2024-05-02] MEDS ORDERED: ASCORBIC ACID 500 MG TAB ONE (06:09)
[2024-05-02] MEDS ORDERED: METOPROLOL SUCCINATE (ER) 25 MG TAB.ER.24H PO ONE (06:09)
[2024-05-02] MEDS ORDERED: CHOLECALCIFEROL 125 MCG (5000 IU) TABLET ONE (06:09)
[2024-05-02] MEDS ORDERED: MELOXICAM 7.5 MG TAB ONE (06:09)
[2024-05-02] MEDS ORDERED: CYANOCOBALAMIN 500 MCG TAB ONE (06:10)
[2024-05-02] MEDS ORDERED: INSULIN ASPART (NovoLOG) 100 UNIT/ML VIAL SQ ONE ×2 (07:10→16:53)
[2024-05-02] MEDS ORDERED: SYMBICORT 80-4.5 MCG INHALER INHALATION ONE (08:00)
[2024-05-02] MEDS ORDERED: methylPREDNISolone SOD SUCCI 40 MG/ML 1 ML VIAL ONE ×2 (09:05→15:56)
[2024-05-02] MEDS ORDERED: HEPARIN SODIUM,PORCINE 5,000 UNIT/ML 1 ML VIAL ONE ×2 (09:06→15:56)
[2024-05-02] MEDS ORDERED: PANTOPRAZOLE 40 MG TABLET PO ONE (09:07)
[2024-05-02] MEDS ORDERED: LORATADINE 10 MG TAB ONE (09:09)
[2024-05-02] MEDS ORDERED: MULTIVITAMINS, THERA 1 EACH TAB ONE (09:10)
[2024-05-02] MEDS ORDERED: ACETAMINOPHEN TAB 325 MG TAB ONE ×2 (11:42→20:32)
[2024-05-02] MEDS ORDERED: ATORVASTATIN 20 MG TAB ONE (20:33)
[2024-05-02] MEDS ORDERED: CITALOPRAM HYDROBROMIDE 20 MG TAB ONE (20:33)
[2024-05-02] MEDS ORDERED: PIOGLITAZONE 30 MG TAB ONE ×2 (23:59)
[2024-05-02] MEDS ORDERED: LEVOTHYROXINE 137 MCG TAB ONE (23:59)
[2024-05-02] MEDS ORDERED: ONDANSETRON 4 MG/2 ML VIAL ONE (23:59)
[2024-05-03] MEDS ORDERED: methylPREDNISolone SOD SUCCI 40 MG/ML 1 ML VIAL ONE ×3 (00:03→15:06)
[2024-05-03] MEDS ORDERED: HEPARIN SODIUM,PORCINE 5,000 UNIT/ML 1 ML VIAL ONE ×2 (00:03→09:55)
[2024-05-03] MEDS ORDERED: ASPIRIN 81 MG ONE (06:57)
[2024-05-03] MEDS ORDERED: METOPROLOL TARTRATE 25 MG TAB ONE (06:57)
[2024-05-03] MEDS ORDERED: ZINC SULFATE 220 MG CAP ONE (06:57)
[2024-05-03] MEDS ORDERED: metFORMIN 500 MG TAB ONE ×2 (06:57→20:26)
[2024-05-03] MEDS ORDERED: CHOLECALCIFEROL 125 MCG (5000 IU) TABLET ONE (06:58)
[2024-05-03] MEDS ORDERED: LEVOTHYROXINE 125 MCG TAB ONE (06:58)
[2024-05-03] MEDS ORDERED: ASCORBIC ACID 500 MG TAB ONE (06:58)
[2024-05-03] MEDS ORDERED: MELOXICAM 7.5 MG TAB ONE (06:58)
[2024-05-03] MEDS ORDERED: CYANOCOBALAMIN 500 MCG TAB ONE (06:58)
[2024-05-03] MEDS ORDERED: INSULIN ASPART (NovoLOG) 100 UNIT/ML VIAL SQ ONE ×4 (06:59→20:27)
[2024-05-03] MEDS ORDERED: PANTOPRAZOLE 40 MG/10 ML VIAL ONE (09:55)
[2024-05-03] MEDS ORDERED: MULTIVITAMINS, THERA 1 EACH TAB ONE (09:55)
[2024-05-03] MEDS ORDERED: FAMOTIDINE 20 MG TAB ONE ×2 (09:55→20:26)
[2024-05-03] MEDS ORDERED: LORATADINE 10 MG TAB ONE ×2 (09:55→10:22)
[2024-05-03] MEDS ORDERED: ACETAMINOPHEN TAB 325 MG TAB ONE ×3 (10:21→23:59)
[2024-05-03] MEDS ORDERED: ONDANSETRON 4 MG/2 ML VIAL ONE (15:25)
[2024-05-03] MEDS ORDERED: SYMBICORT 80-4.5 MCG INHALER INHALATION ONE (20:02)
[2024-05-03] MEDS ORDERED: CITALOPRAM HYDROBROMIDE 20 MG TAB ONE (20:26)
[2024-05-03] MEDS ORDERED: ATORVASTATIN 20 MG TAB ONE (20:27)
[2024-05-03] MEDS ORDERED: METOPROLOL SUCCINATE (ER) 25 MG TAB.ER.24H PO ONE (23:59)
[2024-05-03] MEDS ORDERED: PIOGLITAZONE 30 MG TAB ONE (23:59)
[2024-05-03] MEDS ORDERED: SALT AND SODA MOUTHWASH 1,000 ML PO ONE (23:59)
[2024-05-03] MEDS ORDERED: LEVOTHYROXINE 137 MCG TAB ONE (23:59)
[2024-05-04] MEDS ORDERED: HEPARIN SODIUM,PORCINE 5,000 UNIT/ML 1 ML VIAL ONE ×4 (00:41→23:57)
[2024-05-04] MEDS ORDERED: ACETAMINOPHEN TAB 325 MG TAB ONE ×3 (01:19→15:45)
[2024-05-04] MEDS ORDERED: metFORMIN 500 MG TAB ONE ×2 (08:41→21:09)
[2024-05-04] MEDS ORDERED: ASPIRIN 81 MG ONE (08:41)
[2024-05-04] MEDS ORDERED: LORATADINE 10 MG TAB ONE (08:41)
[2024-05-04] MEDS ORDERED: CYANOCOBALAMIN 500 MCG TAB ONE (08:41)
[2024-05-04] MEDS ORDERED: CHOLECALCIFEROL 125 MCG (5000 IU) TABLET ONE (08:41)
[2024-05-04] MEDS ORDERED: METOPROLOL SUCCINATE (ER) 25 MG TAB.ER.24H PO ONE (08:41)
[2024-05-04] MEDS ORDERED: MULTIVITAMINS, THERA 1 EACH TAB ONE (08:41)
[2024-05-04] MEDS ORDERED: ASCORBIC ACID 500 MG TAB ONE (08:41)
[2024-05-04] MEDS ORDERED: FAMOTIDINE 20 MG TAB ONE ×2 (08:42→21:09)
[2024-05-04] MEDS ORDERED: PANTOPRAZOLE 40 MG TABLET PO ONE (08:42)
[2024-05-04] MEDS ORDERED: ZINC SULFATE 220 MG CAP ONE (09:39)
[2024-05-04] MEDS ORDERED: INSULIN ASPART (NovoLOG) 100 UNIT/ML VIAL SQ ONE ×2 (12:55→17:59)
[2024-05-04] MEDS ORDERED: methylPREDNISolone SOD SUCCI 125 MG/2 ML VIAL ONE ×3 (14:04→23:59)
[2024-05-04] MEDS ORDERED: FAMOTIDINE 20 MG/2 ML VIAL ONE ×2 (14:05→23:59)
[2024-05-04] MEDS ORDERED: MORPHINE SULFATE 4 MG/ML SYRINGE ONE (14:22)
[2024-05-04] MEDS ORDERED: ATORVASTATIN 20 MG TAB ONE (21:09)
[2024-05-04] MEDS ORDERED: CITALOPRAM HYDROBROMIDE 20 MG TAB ONE (21:09)
[2024-05-04] MEDS ORDERED: SYMBICORT 80-4.5 MCG INHALER INHALATION ONE (23:59)
[2024-05-04] MEDS ORDERED: predniSONE 50 MG TAB ONE (23:59)
[2024-05-04] MEDS ORDERED: FOSAPREPITANT DIMEGLUMINE 150 MG VIAL IV ONE (23:59)
[2024-05-04] MEDS ORDERED: [UNRECOGNIZED DRUG - OTHER] IV ONE (23:59)
[2024-05-04] MEDS ORDERED: SODIUM CHLORIDE 0.9% 250 ML BAG ONE (23:59)
[2024-05-04] MEDS ORDERED: MELOXICAM 7.5 MG TAB ONE (23:59)
[2024-05-04] MEDS ORDERED: SODIUM CHLORIDE 0.9% 500 ML BAG ONE (23:59)
[2024-05-04] MEDS ORDERED: SODIUM CHLORIDE 0.9% 50 ML BAG IV ONE (23:59)
[2024-05-04] MEDS ORDERED: PIOGLITAZONE 30 MG TAB ONE (23:59)
[2024-05-04] MEDS ORDERED: ONDANSETRON 2 MG/1 ML 20 ML (MDV) VIAL ONE (23:59)
[2024-05-04] MEDS ORDERED: LEVOTHYROXINE 137 MCG TAB ONE (23:59)
[2024-05-05] MEDS ORDERED: HEPARIN SODIUM,PORCINE 5,000 UNIT/ML 1 ML VIAL ONE ×3 (09:00→23:59)
[2024-05-05] MEDS ORDERED: ASPIRIN 81 MG ONE (09:01)
[2024-05-05] MEDS ORDERED: LORATADINE 10 MG TAB ONE (09:01)
[2024-05-05] MEDS ORDERED: CYANOCOBALAMIN 500 MCG TAB ONE (09:01)
[2024-05-05] MEDS ORDERED: METOPROLOL SUCCINATE (ER) 25 MG TAB.ER.24H PO ONE (09:01)
[2024-05-05] MEDS ORDERED: metFORMIN 500 MG TAB ONE ×2 (09:02→21:36)
[2024-05-05] MEDS ORDERED: ASCORBIC ACID 500 MG TAB ONE (09:02)
[2024-05-05] MEDS ORDERED: INSULIN ASPART (NovoLOG) 100 UNIT/ML VIAL SQ ONE ×2 (09:02→12:59)
[2024-05-05] MEDS ORDERED: PANTOPRAZOLE 40 MG TABLET PO ONE (09:03)
[2024-05-05] MEDS ORDERED: FAMOTIDINE 20 MG TAB ONE (09:03)
[2024-05-05] MEDS ORDERED: CHOLECALCIFEROL 125 MCG (5000 IU) TABLET ONE (09:03)
[2024-05-05] MEDS ORDERED: MULTIVITAMINS, THERA 1 EACH TAB ONE (09:03)
[2024-05-05] MEDS ORDERED: ACETAMINOPHEN TAB 325 MG TAB ONE ×2 (13:58→21:56)
[2024-05-05] MEDS ORDERED: CITALOPRAM HYDROBROMIDE 20 MG TAB ONE (21:35)
[2024-05-05] MEDS ORDERED: ATORVASTATIN 20 MG TAB ONE (21:35)
[2024-05-05] MEDS ORDERED: SYMBICORT 80-4.5 MCG INHALER INHALATION ONE (23:59)
[2024-05-05] MEDS ORDERED: PIOGLITAZONE 30 MG TAB ONE (23:59)
[2024-05-05] MEDS ORDERED: MELOXICAM 7.5 MG TAB ONE (23:59)
[2024-05-05] MEDS ORDERED: ZINC SULFATE 220 MG CAP ONE (23:59)
[2024-05-05] MEDS ORDERED: LEVOTHYROXINE 137 MCG TAB ONE (23:59)
[2024-05-06] MEDS ORDERED: INSULIN ASPART (NovoLOG) 100 UNIT/ML VIAL SQ ONE ×5 (05:55→20:58)
[2024-05-06] MEDS ORDERED: METOPROLOL SUCCINATE (ER) 25 MG TAB.ER.24H PO ONE (08:23)
[2024-05-06] MEDS ORDERED: CYANOCOBALAMIN 500 MCG TAB ONE (08:23)
[2024-05-06] MEDS ORDERED: ASPIRIN 81 MG ONE (08:23)
[2024-05-06] MEDS ORDERED: LORATADINE 10 MG TAB ONE (08:23)
[2024-05-06] MEDS ORDERED: HEPARIN SODIUM,PORCINE 5,000 UNIT/ML 1 ML VIAL ONE ×2 (08:23→17:51)
[2024-05-06] MEDS ORDERED: MULTIVITAMINS, THERA 1 EACH TAB ONE (08:24)
[2024-05-06] MEDS ORDERED: PANTOPRAZOLE 40 MG TABLET PO ONE (08:24)
[2024-05-06] MEDS ORDERED: ASCORBIC ACID 500 MG TAB ONE (08:24)
[2024-05-06] MEDS ORDERED: CHOLECALCIFEROL 125 MCG (5000 IU) TABLET ONE (08:24)
[2024-05-06] MEDS ORDERED: FAMOTIDINE 20 MG TAB ONE (08:24)
[2024-05-06] MEDS ORDERED: metFORMIN 500 MG TAB ONE ×2 (08:24→20:16)
[2024-05-06] MEDS ORDERED: methylPREDNISolone SOD SUCCI 125 MG/2 ML VIAL ONE ×2 (10:35→23:59)
[2024-05-06] MEDS ORDERED: FAMOTIDINE 20 MG/2 ML VIAL ONE ×2 (10:36→23:59)
[2024-05-06] MEDS ORDERED: diphenhydrAMINE 50 MG/ML 1 ML VIAL ONE (11:58)
[2024-05-06] MEDS ORDERED: CITALOPRAM HYDROBROMIDE 20 MG TAB ONE (20:16)
[2024-05-06] MEDS ORDERED: ATORVASTATIN 20 MG TAB ONE (20:16)
[2024-05-06] MEDS ORDERED: LEVOTHYROXINE 137 MCG TAB ONE (23:59)
[2024-05-06] MEDS ORDERED: SYMBICORT 80-4.5 MCG INHALER INHALATION ONE (23:59)
[2024-05-06] MEDS ORDERED: SODIUM CHLORIDE 0.9% 50 ML BAG IV ONE ×2 (23:59)
[2024-05-06] MEDS ORDERED: CYCLOPHOSPHAMIDE IV ONE (23:59)
[2024-05-06] MEDS ORDERED: SODIUM CHLORIDE 0.9% 250 ML BAG ONE ×2 (23:59)
[2024-05-06] MEDS ORDERED: ZINC SULFATE 220 MG CAP ONE (23:59)
[2024-05-06] MEDS ORDERED: VINCRISTINE SULFATE IV ONE (23:59)
[2024-05-06] MEDS ORDERED: ALBUTEROL HFA INHALER INHALATION ONE (23:59)
[2024-05-06] MEDS ORDERED: MELOXICAM 7.5 MG TAB ONE (23:59)
[2024-05-06] MEDS ORDERED: OLANZapine 2.5 MG TAB ONE (23:59)
[2024-05-06] MEDS ORDERED: ONDANSETRON 2 MG/1 ML 20 ML (MDV) VIAL ONE (23:59)
[2024-05-06] MEDS ORDERED: DOXOrubicin HCL 50 MG/25 ML VIAL IV ONE (23:59)
[2024-05-06] MEDS ORDERED: predniSONE 50 MG TAB ONE (23:59)
[2024-05-06] MEDS ORDERED: FOSAPREPITANT DIMEGLUMINE 150 MG VIAL IV ONE (23:59)
[2024-05-06] MEDS ORDERED: PIOGLITAZONE 30 MG TAB ONE (23:59)
[2024-05-07] MEDS ORDERED: ONDANSETRON 4 MG/2 ML VIAL ONE (03:16)
[2024-05-07] MEDS ORDERED: INSULIN ASPART (NovoLOG) 100 UNIT/ML VIAL SQ ONE ×3 (05:36→13:19)
[2024-05-07] MEDS ORDERED: FILGRASTIM-SNDZ 480 MCG/0.8 ML SYRINGE SQ ONE (09:00)
[2024-05-07] MEDS ORDERED: ASPIRIN 81 MG ONE (09:03)
[2024-05-07] MEDS ORDERED: METOPROLOL SUCCINATE (ER) 25 MG TAB.ER.24H PO ONE (09:03)
[2024-05-07] MEDS ORDERED: CYANOCOBALAMIN 500 MCG TAB ONE (09:03)
[2024-05-07] MEDS ORDERED: HEPARIN SODIUM,PORCINE 5,000 UNIT/ML 1 ML VIAL ONE (09:03)
[2024-05-07] MEDS ORDERED: LORATADINE 10 MG TAB ONE (09:03)
[2024-05-07] MEDS ORDERED: CHOLECALCIFEROL 125 MCG (5000 IU) TABLET ONE (09:05)
[2024-05-07] MEDS ORDERED: ASCORBIC ACID 500 MG TAB ONE (09:05)
[2024-05-07] MEDS ORDERED: metFORMIN 500 MG TAB ONE (09:05)
[2024-05-07] MEDS ORDERED: PANTOPRAZOLE 40 MG TABLET PO ONE (09:05)
[2024-05-07] MEDS ORDERED: MULTIVITAMINS, THERA 1 EACH TAB ONE (09:05)
[2024-05-07] MEDS ORDERED: FAMOTIDINE 20 MG TAB ONE (09:06)
--- NOTE | 2024-05-31 11:43 | CT ---
EXAM: CT Chest With Intravenous Contrast CLINICAL HISTORY: non hodgkins lymphoma. no other hx. TECHNIQUE: Axial computed tomography images of the chest with intravenous contrast. CTDI is 14.85 mGy and DLP is 895.7 mGy-cm. This CT exam was performed using one or more of the following dose reduction techniques: automated exposure control, adjustment of the mA and/or kV according to patient size, and/or use of iterative reconstruction technique. COMPARISON: No previous studies. FINDINGS: Lungs: Mild to moderate COPD. Located posterior laterally the right middle lobe, a 0.5 cm noncalcified nodule is noted. Airway is normal. Minimal scarring and subsegmental atelectasis in the mid lower lung zones. Pleural space:Unremarkable. No pneumothorax. No significant effusion. Heart: 0.4 cm pericardial effusion is noted. Cardiomegaly. No significant coronary artery calcifications. Mediastinum: Small hiatal hernia and distal esophagitis. 3.2 x 1.6 cm subcarinal lymph node is noted. Thyroid: Thyroid gland is unremarkable. Bones/joints: Severe degenerative disc disease of the thoracic spine and kyphosis are noted. No acute fracture. No dislocation. Soft tissues:Unremarkable. Vasculature:Atherosclerotic disease of the thoracic aorta. No thoracic aortic aneurysm. Lymph nodes: 1.6 cm enlarged pretracheal lymph node is noted. A2.3 x 1.9 cm enlarged right hilar lymph node is noted. There is right axillary lymphadenopathy with largest lymph fat measuring 2 x 1.1 cmin extent. There is left axillary lymphadenopathy with the largest lymph fat measuring up to 1.8 cm in extent. IMPRESSION: No acute findings in the chest. EXAM: CT Abdomen and Pelvis With Intravenous Contrast CLINICAL HISTORY: non hodgkins lymphoma. no other hx. TECHNIQUE: Axial computed tomography images of the abdomen and pelvis with intravenous contrast. CTDI is 14.85 mGy and DLP is 895.7 mGy-cm. This CT exam was performed using one or more of the following dose reduction techniques: automated exposure control, adjustment of the mA and/or kV according to patient size, and/or use of iterative reconstruction technique. COMPARISON: No previous studies. FINDINGS: Lung bases:Unremarkable. No mass. No consolidation. ABDOMEN: Liver: Liver is normal in contour. Gallbladder and bile ducts:Unremarkable. No calcified stones. No ductal dilation. Pancreas: The head, body, tail of the pancreas are unremarkable. No ductal dilation. Spleen: There is splenomegaly. Adrenals: The adrenal glands are unremarkable. Kidneys and ureters:Unremarkable. No solid mass. No hydronephrosis. Stomach and bowel: Moderate quantity of stool throughout the colon. Diverticulosis without diverticulitis. No obstruction. PELVIS: Appendix:No findings to suggest acute appendicitis. Bladder:Unremarkable. No mass. Reproductive:Unremarkable as visualized. ABDOMEN and PELVIS: Intraperitoneal space:Unremarkable. No free air. No significant fluid collection. Bones/joints:No acute fracture. No dislocation. No spondylolysis. Soft tissues: Ischiorectal fat is clean. Vasculature: Portal vein is patent. Atherosclerotic disease of the abdominal aorta extending to the common iliac arteries. Flow is noted within the celiac, SMA, the renal arteries, and ZAHRA. No abdominal aortic aneurysm. Lymph nodes: There is extensive retroperitoneal gastrohepatic and stacey hepatis lymphadenopathy. Pelvic sidewall and inguinal lymphadenopathy. Other findings: Multilevel vacuum disc. IMPRESSION: 1. There is extensive axillary, mediastinal, hilar, retroperitoneal, pelvic sidewall, inguinal, stacey hepatis, and gastrohepatic lymphadenopathy compatible with patient's history. PET imaging is advised to follow-up for the sake of completeness of workup. 2. Her splenomegaly. 3. 0.5 cm indeterminate nodule at the right midlung which should be followed based on the Fleischner Society guidelines. Repeat CT imaging of the chest in 12 months is advised for follow-up. 4. Atherosclerotic disease. 5. ASCVD. 6. Cardiomegaly. 7. Pericardial effusion. 8. Gallbladder is unremarkable. 9. No renal calculus or hydronephrosis. 10. No bowel obstruction. 11. Diverticulosis without diverticulitis. Radiologist: Alfonso Mcfarland MD Electronically Signed: 05/01/24 03:06 Study ready at 00:07 and initial results transmitted at 03:06 Results also transmitted to Film Room, Film Room @ [phone] (Fax) MTDD
--- NOTE | 2024-05-31 11:44 | CT ---
EXAM: CT Neck With Intravenous Contrast CLINICAL HISTORY: hx non hodgkins lymphoma. No other hx or symptoms listed. TECHNIQUE: Axial computed tomography images of the neck with intravenous contrast. CTDI is 298.2 mGyand DLP is 8.1 mGy-cm. This CT exam was performed using one or more of the following dose reduction techniques: automated exposure control, adjustment of the mA and/or kV according to patient size, and/or use of iterative reconstruction technique. COMPARISON: No relevant prior studies available. FINDINGS: Enlarged bilateral cervical, supraclavicular and mediastinal lymph nodes. IMPRESSION: Diffuse lymphadenopathy in the neck and upper chest, likely related to history of lymphoma. Radiologist: Sandra Ramon MD Electronically Signed: 05/01/24 01:59 Study ready at 23:24 and initial results transmitted at 01:59 Results also transmitted to Film Room, Film Room @ [phone] (Fax) MTDD
--- NOTE | 2024-06-09 09:39 | XR ---
Patient: Arturo Boothe L Ordering Physician: Unknown, Unknown ID: [id number] Phone, Pager: Phone: N/A Pager: N/A : 1955 Age/Gender: 69Y, M Primary Location: N/A Procedure: XR chest 2V Study Date: 04/29/2024 4:51:36 PM EXAMINATION TYPE: XR chest 2V DATE OF EXAM: 05/16/2024 11:25 AM CLINICAL INDICATION: Chest pain and weakness COMPARISON: Chest radiographs from 08/20/2024 TECHNIQUE: XR chest 2V Frontal view of the chest. FINDINGS: Lungs/Pleura: Subtle right lower lung airspace opacities in frontal view. There are low lung volumes however possibly represent atelectasis versus airspace disease. There is no evidence of pleural effus ion, focal consolidation, or pneumothorax. Pulmonary vascularity: Unremarkable. Heart/mediastinum: Cardiomediastinal silhouette is unremarkable. Musculoskeletal: No acute osseous pathology. IMPRESSION: Low lung volumes with possible right lower lung airspace opacities correlate for pneumonia. Is to be secondary to low lung volumes. Attention follow-up.
--- NOTE | 2024-06-16 20:47 | CDI ---
Documentation Clarification Form Date: 06/16/2024 08: 22: 32 PM From: Nithya Hall Phone: Admit Date: 04/29/2024 08: 15: 00 PM Patient Name: Arturo Boothe Visit Number: [id number] Discharge Date: 05/07/2024 04: 24: 00 PM ATTENTION: The Clinical Documentation Specialists (CDI) and [facility] Coding Staff appreciate your assistance in clarifying documentation. Please respond to the clarification below the line at the bottom and electronically sign. The CDI & [facility] Coding staff will review the response and follow-up if needed. Please note: Queries are made part of the Legal Health Record. If you have any questions, please contact the author of this message via ITS. Doctor/Provider: Lance Oh Conflicting documentation has been found in the medical record. As attending physician, please provide clarification. 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 Located posterior laterally the RML lobe, a 0. 5 cm noncalcified noduleis noted. Airway is normal. Minimalscarringand subsegmentalatelectasis in the mid lower lung zones. Pleural space: Unremarkable. Nopneumothorax. No significanteffusion. Heart: 0. 4 cmpericardial effusionis noted. Cardiomegaly. No significant coronary arterycalcifications. Mediastinum: Smallhiatal herniaand distalesophagitis. 3. 2 x 1. 6 cm subcarinal lymphnodeis noted. Thyroid: Thyroid gland is unremarkable. Bones/joints: SevereDDD of the thoracicspine and kyphosisare noted. No acutefracture. Nodislocation. Soft tissues: Unremarkable. Vasculature: Atheroscleroticdisease of the thoracic aorta. Nothoracic aortic aneurysm. Lymphnodes: 1. 6 cmenlargedpretracheal lymphnodeis noted. A2. 3 x 1. 9 cm enlargedright hilar lymphnodeis noted. There isright axillary lymphadenopathywith largest lymph fat measuring 2 x 1. 1 min extent. There isleft axillary lymphadenopathywith the largest lymph fat measuring up to 1. 8 cm in extent. Treatment: Rituximab via PICC Please clarify which diagnosis is most appropriate: [ ] Large B Cell Lymphoma [ X ] Mantle Cell Lymphoma [ ] Other (please specify) [ ] Unable to determine (Template Last Revised: November 2020) MTDD
== END 2024-05-07 16:24 | disposition home or self-care (01) | DRG 840 ==
LOC: UNDODISIN 20:15 → 3NCARDOBS 20:15
PROVIDERS: ADMIT Internal Medicine; ATTEND Internal Medicine
PROC: 02HV33Z Insertion of Infusion Device into Superior Vena Cava, Percutaneous Approach (ICD-10-PCS; principal; 2024-05-03)
DX: C83.10 Mantle cell lymphoma, unspecified site (principal); E88.3 Tumor lysis syndrome; D61.818 Other pancytopenia; J96.11 Chronic respiratory failure with hypoxia; D69.6 Thrombocytopenia, unspecified; J44.9 Chronic obstructive pulmonary disease, unspecified; E11.65 Type 2 diabetes mellitus with hyperglycemia; R16.2 Hepatomegaly with splenomegaly, not elsewhere classified; Z99.81 Dependence on supplemental oxygen; I10 Essential (primary) hypertension; E03.9 Hypothyroidism, unspecified; D63.0 Anemia in neoplastic disease; I25.10 Atherosclerotic heart disease of native coronary artery without angina pectoris; D75.89 Other specified diseases of blood and blood-forming organs; T38.0X5A Adverse effect of glucocorticoids and synthetic analogues, initial encounter; T45.1X5A Adverse effect of antineoplastic and immunosuppressive drugs, initial encounter; J35.8 Other chronic diseases of tonsils and adenoids; Z79.1 Long term (current) use of non-steroidal anti-inflammatories (NSAID); Z79.890 Hormone replacement therapy; Z79.82 Long term (current) use of aspirin; Z79.84 Long term (current) use of oral hypoglycemic drugs; Z87.891 Personal history of nicotine dependence; Z95.5 Presence of coronary angioplasty implant and graft; Z79.899 Other long term (current) drug therapy; I25.2 Old myocardial infarction
CPT/HCPCS: 70491; 71046; 71260; 74177; 86850; 86900; 86901; 99285

== ENCOUNTER → 2024-06-21 | Outpatient (CLI) | payer MEDICARE ==
--- NOTE | 2024-06-21 22:16 | MR ---
EXAMINATION TYPE: MR brain wo/w con DATE OF EXAM: 06/21/2024 10:00 PM CLINICAL INDICATION: Male, 69 years old with history of C83.10 MANTLE CELL LYMPHOMA; PHH, lymphoma COMPARISON: None TECHNIQUE: Multi planar, multi sequence imaging was performed through the brain including: T1, T2, In version recovery, susceptibility weighted imaging and gradient echo imaging and Diffusion weighted im aging. The patient was then given intravenous contrast and multi planar, T1 fat-saturation images wer e obtained. IV Contrast: 9 cc Gadavist FINDINGS: The weber-white junctions, ventricular system, basal cisterns appear unremarkable. Prominent perivascu lar space in the right antony and left cerebellum versus remote injury. Additional injuries with scolio sis the bilateral centrum semiovale/mazariegos radiata. Diffusion-weighted imaging shows no evidence of r estricted diffusion to suggest acute/subacute infarct. Intracranial arterial flow voids are maintaine d. Midline structures show no abnormality. Scattered foci of high T2 signal intensity are seen within the periventricular white matter. The susceptibility weighted images do not reveal any evidence for micro-hemorrhage. After administration of gadolinium, no abnormal enhancement is seen. The bone marrow signal is within normal limits. Paranasal sinuses and mastoid air cells: No significant paranasal sinus disease. Visualized orbits: Orbital contents are intact. IMPRESSION: 1. No evidence of intracranial mass, acute/subacute infarct, or abnormal enhancement. 2. Nonspecific white matter changes, likely related to small vessel ischemic disease. 3. Prior mazariegos radiata/centrum semiovale injuries. [facility], , 06/21/2024 10:13 PM
== END | disposition home or self-care (01) ==
LOC: RADMRIMAIN 21:00
PROVIDERS: ATTEND Internal Medicine Hematology & Oncology
DX: C83.10 Mantle cell lymphoma, unspecified site (principal)
CPT/HCPCS: 70553

== ENCOUNTER → 2024-07-01 | Outpatient (CLI) | payer MEDICARE ==
--- NOTE | 2024-07-03 23:00 | PE ---
EXAMINATION TYPE: PET CT fusion skull to thigh DATE OF EXAM: 07/01/2024 CLINICAL INDICATION:Male, 69 years old with history of C83.10 Lymphoma; TECHNIQUE: Following the intravenous administration of 10.87 mCi of F-18 FDG, whole body images are performed from the skull base to the midthigh. Images are reviewed on the computer in the coronal, axial, and sagittal planes. Reconstructed rotating images are created on independent workstation and reviewed on the computer. A non-contrast CT is performed in conjunction with the PET scan. Glucose level 159 mg/dL CT DLP: 893.79 mGycm, Automated exposure control for dose reduction was used. COMPARISON: CT 04/30/2024, 08/12/2023, 11/30/2019, PET/CT None, MRI: 06/21/2024 FINDINGS: Mediastinal SUV mean is 1.8. Hepatic parenchyma SUV mean is 2.5. SKULL BASE AND NECK: Previously seen lymph nodes within the neck are all now below 1 cm short axis. Examples include a left jugular lymph node max SUV of 1.9. Right jugular lymph node max SUV of 2.1. CHEST, MEDIASTINUM, AND HILAR REGION: Previously seen lymph nodes within the chest are all now below 1 cm short axis. Examples include a precarinal lymph node with a maximum SUV of 1.8. Upper right paratracheal lymph node with a maximum SUV of 1.3. Right hilar lymph node max SUV 2.7. Left hilar lymph node max SUV 2.6. Anterior epicardial lymph node with a maximum SUV of 0.7. ABDOMEN AND PELVIS: Previously seen lymph nodes within the abdomen and pelvis are all now below 1 cm short axis. Examples include a left periaortic lymph node with a maximum SUV 1.6. Periportal lymph node with a maximum SUV of 2.2. Right external iliac chain lymph node with a maximum SUV of 1.3. Left external iliac chain lymph node with a maximum SUV of 1.6. Decrease now mild splenomegaly with a maximum SUV of 2.9. Spleen previously measured 21.4 cm in AP di mension, now 15.1 cm in AP dimension. MUSCULOSKELETAL STRUCTURES: No suspicious radiotracer activity. OTHER CT: Bilateral aphakia. Atherosclerotic calcification of the intracranial vasculature. Right car otid bulb calcifications. Punctate calcifications within the right parotid gland. Right PICC line wit h distal tip terminating at the cavoatrial junction. Mild cardiomegaly. Stable trace pericardial effu randa. Moderate coronary artery calcification of the LAD. Mild atelectatic calcification of the aorta and its branches. Scattered colonic diverticulosis most prominent within the sigmoid colon. Pelvic ph leboliths. Osteoarthritic change of both hips the right greater the left. IMPRESSION: Marked positive response to therapy with decreased size of previously seen extensive adenopathy now m easuring less than 1 short axis with radiotracer levels at background. Decreased size of splenomegaly now near background levels. [facility], , 07/03/2024 10:57 PM
== END | disposition home or self-care (01) ==
LOC: RADPETMAIN 14:48
PROVIDERS: ATTEND Internal Medicine Hematology & Oncology
DX: C83.10 Mantle cell lymphoma, unspecified site
CPT/HCPCS: 78815

== ENCOUNTER → 2024-07-19 | Outpatient (CLI) | payer MEDICARE ==
--- NOTE | 2024-07-19 12:07 | FL ---
Exam Date: 07/19/2024 11:52 AM. Modified barium swallow for dysphagia. Consistencies administered: Various consistency of barium. Fluoro time: 51 sec fl No images were sent to PACS. Please see speech pathology report. DAP: Not reported mGym2 Gycm2 [facility], , 07/19/2024 12:05 PM
== END | disposition home or self-care (01) ==
LOC: RADFLMAIN 11:16
PROVIDERS: ATTEND Otolaryngology
DX: J35.8 Other chronic diseases of tonsils and adenoids (principal)
CPT/HCPCS: 74230

== ENCOUNTER 2024-08-10 10:20 | Day surgery (SDC) | payer MEDICARE ==
[2024-08-09 08:40] VITALS: BMI 30.5
[2024-08-10 10:47] VITALS: TEMP 97
[2024-08-10 11:00] LABS: Glucose,Whole Blood 166 mg/dL (70-110)
[2024-08-10] MEDS: IV FLUID CONTINUATION 1,000 ML IV ONE (11:01)
[2024-08-10] MEDS: LACTATED RINGERS 1,000 ML IV SCH (11:02)
[2024-08-10 11:19] LABS: Anisocytosis Slight; Basophils # (A) 0.1 k/uL (0-0.2); Basophils % (A) 1 %; Eosinophils # (A) 0.5 k/uL (0-0.7); Eosinophils % (A) 10 %; HCT 29.3 % (39.0-53.0); HGB 9.4 gm/dL (13.0-17.5); Hypochromasia Slight; Lymphocytes # (A) 0.4 k/uL (1.0-4.8); Lymphocytes % (A) 8 %; MCH 27.1 pg (25.0-35.0); MCHC 32.1 g/dL (31.0-37.0); MCV 84.4 fL (80.0-100.0); Mean Platelet Volume 8.1; Microcytosis Slight; Monocytes # (A) 0.4 k/uL (0-1.0); Monocytes % (A) 8 %; Neutrophils # (A) 3.8 k/uL (1.3-7.7); Neutrophils % (A) 70 %; Platelet Count 281 k/uL (150-450); Poikilocytosis Slight; RBC 3.47 m/uL (4.30-5.90); RDW 19.8 % (11.5-15.5); WBC 5.3 k/uL (3.8-10.6)
[2024-08-10] MEDS: METHOTREXATE SODIUM (PF) 25 MG/ML 2 ML VIAL INTRATHECA NR (11:22)
--- NOTE | 2024-08-10 11:52 | P.PCN ---
Date of Procedure: 08/10/24 Procedure(s) Performed: Preoperative diagnosis: Lymphoma Post operative diagnoses: Lymphoma Procedure= lumbar puncture Anesthesia= local infiltration with lidocaine 1% 3 mL. Condition: stable Complication: none. Description of the procedure procedure risk and benefits discussed with the patient and family, consent signed. Patient and the procedure area placed in sitting position , back prepped with chlorhexidine 3 times been local infiltration of the skin and subcutaneous tissue with lidocaine 1% 3 mL for skin and subcu interstitial frustrations at L4 5 levels then 22-gauge Quincke-type needle advanced slowly at L4- 5 interlaminar space there was positive cerebrospinal fluid which was clear, no heme, no paresthesia ,total of 4 ML of clear cerebrospinal fluid collected , and after that patient received chemotherapy as per surgery services, patient received methotrexate intrat hecally (given by Sandrita resendiz NP ), then the needle removed and a Band-Aid applied and patient tolerated the procedure well without any complications. note= patient had lymphoma he is getting chemotherapy as per oncology services and there was request to do lumbar puncture to give prophylactic chemotherapy intrathecally , and further management as per oncology services
[2024-08-10] MEDS: IV FLUID CONTINUATION 800 ML IV ONE (11:54)
[2024-08-10 12:19] VITALS: RESP 16
[2024-08-10 13:02] LABS: Glucose,CSF 101 mg/dL (40-70); Total Protein,CSF 62 mg/dL (12-60)
[2024-08-10 13:09] LABS: Appearance,CSF Clear; CSF Tube Number 1
[2024-08-10 13:10] LABS: Nucleated Cells, CSF 2 u/L (0-5); Red Blood Cell,CSF 5 u/L (0-10)
[2024-08-10 13:21] VITALS: BP 126/78; PULSE 77
--- NOTE | 2024-08-10 15:30 | P.PCN ---
Date of Procedure: 08/10/24 Preoperative Diagnosis: Mantle cell lymphoma Postoperative Diagnosis: mantle cell lymphoma Procedure(s) Performed: LP with prophylactic intrathecal methotrexate instillation Estimated Blood Loss (ml): 0 Pathology: other (orders for cell count/diff/protein/cytology/flow [id number] panel) Condition: stable Disposition: same day Indications for Procedure: Mantle Cell lymphoma Description of Procedure: Lumbar puncture performed by Anesthesiologist, 4 cc of clear cerebrospinal fluid was removed. 12 mg of preservative-free methotrexate diluted to a concentration of 5 mg/mL, total of 2.4 mL was instilled slowly over 2 minutes. This was followed by 1.6 cc of preservative-free normal saline flush in a latex free syringe over 1 minute. Patient tolerated procedure well.
== END 2024-08-10 13:35 | disposition home or self-care (01) ==
LOC: ORPAIN 10:20
PROVIDERS: ATTEND Specialist
DX: C83.10 Mantle cell lymphoma, unspecified site (principal); I10 Essential (primary) hypertension; E11.9 Type 2 diabetes mellitus without complications; Z79.82 Long term (current) use of aspirin; Z79.899 Other long term (current) drug therapy; Z88.8 Allergy status to other drugs, medicaments and biological substances; Z79.01 Long term (current) use of anticoagulants
CPT/HCPCS: 88108; 84157; 82945; 85025; 89050; 62270; J9260

== ENCOUNTER 2024-09-02 09:09 | Day surgery (SDC) | payer MEDICARE ==
[~2024-09-02 09:09] MED LIST: LACTATED RINGERS 1,000 ML IV SCH
[2024-09-02 10:09] VITALS: BP 131/91; TEMP 97.1
[2024-09-02 10:18] LABS: Glucose,Whole Blood 107 mg/dL (70-110)
--- NOTE | 2024-09-02 10:39 | P.PCN ---
Date of Procedure: 09/02/24 Procedure(s) Performed: Preoperative diagnosis: Lymphoma Post operative diagnoses: Lymphoma Procedure= lumbar puncture Anesthesia= local infiltration with lidocaine 1% 3 mL. Condition: stable Complication: none. Description of the procedure procedure risk and benefits discussed with the patient and family, consent signed. Patient and the procedure area placed in sitting position , back prepped with chlorhexidine 3 times been local infiltration of the skin and subcutaneous tissue with lidocaine 1% 3 mL for skin and subcu interstitial frustrations at L4 5 levels then 22-gauge Quincke-type needle advanced slowly at L4- 5 interlaminar space there was positive cerebrospinal fluid which was clear, no heme, no paresthesia ,total of 4 ML of clear cerebrospinal fluid collected , and after that patient received chemotherapy as per oncology services, patient received methotrexate intr athecally (given by Sandrita resendiz NP ), then the needle removed and a Band-Aid applied and patient tolerated the procedure well without any complications. note= patient had lymphoma he is getting chemotherapy as per oncology services and there was request to do lumbar puncture to give prophylactic chemotherapy intrathecally , and further management as per oncology services
[2024-09-02 10:45] VITALS: PULSE 74; RESP 16
[2024-09-02 11:09] LABS: Glucose,Whole Blood 80 mg/dL (70-110)
[2024-09-02] MEDS: METHOTREXATE SODIUM (PF) 25 MG/ML 2 ML VIAL INTRATHECA NR (11:27)
--- NOTE | 2024-09-02 11:34 | P.PCN ---
Date of Procedure: 09/02/24 Preoperative Diagnosis: Mantle cell lymphoma Postoperative Diagnosis: Mantle cell lymphoma Procedure(s) Performed: LP with IT chemotherapy administration Estimated Blood Loss (ml): 0 Pathology: none sent Condition: stable Disposition: same day Indications for Procedure: Mantle cell lymphoma, prophylactic intrathecal chemotherapy Description of Procedure: LP performed by Dr. Gagnon, 4cc clear CSF removed. 12mg of preservative free methotrexate diluted to 5mg/ml with sterile/preservative free NS for a total 2.4ml was instilled slowly over 2 minutes followed by 1.6cc sterile NS flush in a latex free syringe over 1 min. Needle was removed. Pt tolerated procedure well.
== END 2024-09-02 11:32 | disposition home or self-care (01) ==
LOC: ORPAIN 09:09
PROVIDERS: ATTEND Specialist
DX: C83.10 Mantle cell lymphoma, unspecified site (principal)
CPT/HCPCS: 62270; J9260

== ENCOUNTER → 2024-09-03 | Outpatient (CLI) | payer MEDICARE ==
--- NOTE | 2024-09-03 16:39 | PE ---
EXAMINATION TYPE: PET CT fusion skull to thigh DATE OF EXAM: 09/03/2024 CLINICAL INDICATION:Male, 69 years old with history of C83.10 lymphoma; TECHNIQUE: Following the intravenous administration of 10.6 mCi of F-18 FDG, whole body images are performed from the skull base to the midthigh. Images are reviewed on the computer in the coronal, a xial, and sagittal planes. Reconstructed rotating images are created on independent workstation and reviewed on the computer. A non-contrast CT is performed in conjunction with the PET scan. Glucose level 154 mg/dL CT DLP: 764.35 mGycm, Automated exposure control for dose reduction was used. COMPARISON: CT 08/12/2023, 08/08/2023, 07/16/2023, PET/CT 07/01/2024, MRI: 06/21/2024 FINDINGS: Mediastinal SUV mean is 1.9. Hepatic parenchyma SUV mean is 2.5. SKULL BASE AND NECK: Previously seen lymph nodes within the neck are again all below 1 cm short axis with FDG activity abo ve background. CHEST, MEDIASTINUM, AND HILAR REGION: Previously seen lymph nodes within the chest are again below 1 cm short axis with no significant FDG activity above background. Patchy groundglass opacities within the right lung with low level tracer uptake with a maximum SUV of 2.7. ABDOMEN AND PELVIS: Previously seen lymph nodes within the abdomen and pelvis are again all below 1 cm short axis without FDG activity above background. Stable mild splenomegaly, measuring 15.1 cm in AP dimension. Measures maximum SUV of 2.0, previously 2.9. MUSCULOSKELETAL STRUCTURES: No suspicious radiotracer activity. OTHER CT: Bilateral aphakia. Atherosclerotic calcification of the intracranial vasculature. Right car otid bulb calcifications. Punctate calcifications within the right parotid gland. Right-sided palatin e tonsilloliths. Right PICC line with distal tip terminating at the superior cavoatrial junction. Mil d bilateral gynecomastia. Mild cardiomegaly. Stable trace pericardial effusion. Moderate coronary art gin calcification of the LAD. Mild atelectatic calcification of the aorta and its branches. Scattered colonic diverticulosis most prominent within the sigmoid colon. Pelvic phleboliths. Osteoarthritic change of both hips the right greater the left. IMPRESSION: 1. No FDG avid lymphadenopathy to suggest recurrence or residual disease. 2. Stable mild splenomegaly with decreased FDG activity now at background levels. 3. Right lung patchy groundglass opacities with low level FDG activity suggests an infectious/inflam matory process. [facility], , 09/03/2024 4:36 PM
== END | disposition home or self-care (01) ==
LOC: RADPETMAIN 07:15
PROVIDERS: ATTEND Internal Medicine Hematology & Oncology
DX: C83.10 Mantle cell lymphoma, unspecified site (principal); R16.1 Splenomegaly, not elsewhere classified; K57.30 Diverticulosis of large intestine without perforation or abscess without bleeding; H27.03 Aphakia, bilateral; I51.7 Cardiomegaly; M16.0 Bilateral primary osteoarthritis of hip
CPT/HCPCS: 78815; A9552

== ENCOUNTER → 2024-09-23 | Outpatient (CLI) | payer MEDICARE ==
--- NOTE | 2024-09-23 09:59 | XR ---
EXAMINATION TYPE: XR cervical spine 5 views comp DATE OF EXAM: 09/23/2024 9:02 AM COMPARISON: None CLINICAL INDICATION: Male, 69 years old with history of M54.2 cervicalgia, , FINDINGS: The patient is pendulous. No predental space widening or prevertebral soft tissue swelling. Moderate to severe degenerative disc disease C4-C6 levels. Trace grade 1 anterolisthesis C3-C4 grade 1 retroli sthesis C4-C5. Remaining alignment is maintained. Moderate to advanced facet and uncovertebral joint arthropathy especially made cervical spine. On the right, changes resulting in severe bony neuroforaminal narrowing C5-C6 and moderate to severe at C4-C5 and C6-C7. On the left, changes result in mild bony neuroforaminal narrowing at C5-C6. Normal odontoid view. IMPRESSION: 1. Moderate to advanced spondylotic changes especially C4-C6 levels. 2. Degenerative grade 1 spondylolisthesis C3-C4 and C4-C5. 3. Bony neuroforaminal narrowing particularly on the right at C5-C6. [facility], , 09/23/2024 9:57 AM
== END | disposition home or self-care (01) ==
LOC: RADXRMAIN 08:42
PROVIDERS: ATTEND Family Medicine
DX: M47.812 Spondylosis without myelopathy or radiculopathy, cervical region (principal); M43.12 Spondylolisthesis, cervical region
CPT/HCPCS: 72050

== ENCOUNTER 2024-09-24 13:11 | Day surgery (SDC) | payer MEDICARE ==
[2024-09-24] MEDS ORDERED: LACTATED RINGERS 1,000 ML IV SCH (13:27)
[2024-09-24 13:47] LABS: Glucose,Whole Blood 196 mg/dL (70-110)
[2024-09-24 14:01] VITALS: TEMP 97.4
--- NOTE | 2024-09-24 14:48 | P.PCN ---
Date of Procedure: 09/24/24 Procedure(s) Performed: Preoperative diagnosis: Lymphoma Post operative diagnoses: Lymphoma Procedure= lumbar puncture Anesthesia= local infiltration with lidocaine 1% 3 mL. Condition: stable Complication: none. Description of the procedure procedure risk and benefits discussed with the patient and family, consent signed. Patient and the procedure area placed in sitting position , back prepped with chlorhexidine 3 times been local infiltration of the skin and subcutaneous tissue with lidocaine 1% 3 mL for skin and subcu interstitial frustrations at L4 5 levels then 22-gauge Quincke-type needle advanced slowly at L4- 5 interlaminar space there was positive cerebrospinal fluid which was clear, no heme, no paresthesia ,total of 4 ML of clear cerebrospinal fluid collected , and after that patient received chemotherapy as per oncology services, patient received methotrexate intr athecally (given by Sandrita resendiz NP ), then the needle removed and a Band-Aid applied and patient tolerated the procedure well without any complications. note= patient had lymphoma he is getting chemotherapy as per oncology services and there was request to do lumbar puncture to give prophylactic chemotherapy intrathecally , and further management as per oncology services
[2024-09-24 15:01] VITALS: RESP 16
[2024-09-24 15:16] VITALS: BP 157/90; PULSE 77
[2024-09-24] MEDS: METHOTREXATE SODIUM (PF) 25 MG/ML 2 ML VIAL INTRATHECA NR (15:18)
--- NOTE | 2024-09-24 15:22 | P.PCN ---
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 Gagnon, 4cc clear CSF removed. 12mg of preservative free methotrexate diluted to 5mg/ml with sterile/preservative free NS for a total 2.4ml was instilled slowly over 2 minutes followed by 1.6cc sterile NS flush in a latex free syringe over 1 min. Needle was removed. Pt tolerated procedure well.
== END 2024-09-24 15:38 | disposition home or self-care (01) ==
LOC: ORPAIN 13:11
PROVIDERS: ATTEND Specialist
DX: C83.10 Mantle cell lymphoma, unspecified site (principal); E11.9 Type 2 diabetes mellitus without complications; Z79.82 Long term (current) use of aspirin; Z79.899 Other long term (current) drug therapy; Z79.1 Long term (current) use of non-steroidal anti-inflammatories (NSAID); Z91.09 Other allergy status, other than to drugs and biological substances
CPT/HCPCS: 96450; J9260; 62270

== ENCOUNTER → 2024-10-01 | Outpatient (CLI) | payer MEDICARE ==
[2024-10-01 15:08] LABS: HCT 36.9 % (39.6-50.0); HGB 11.7 g/dL (13.0-17.0); MCH 28.8 pg (27.0-32.0); MCHC 31.7 g/dL (32.0-37.0); MCV 90.9 FL (80.0-97.0); NRBC Per 100 WBC 0 X 10*3/uL (0.00-0.01); Platelet Count 264 X 10*3/uL (140-440); RBC 4.06 X 10*6/uL (4.40-5.60); RDW 16.8 % (11.5-14.5); WBC 5.52 X 10*3/uL (4.50-10.00)
[2024-10-01 15:31] LABS: NT-Pro-B-Type Natriuretic Pept 120 pg/mL (0-125)
[2024-10-01 15:42] LABS: ALT 22 U/L (10-49); AST 20 U/L (14-35); Albumin 4.1 g/dL (3.8-4.9); Albumin/Globulin Ratio 1.58 Ratio (1.60-3.17); Alkaline Phosphatase 96 U/L (41-126); Blood Urea Nitrogen 14.5 mg/dL (9.0-27.0); Calcium 9.7 mg/dL (8.7-10.3); Carbon Dioxide 25.8 mmol/L (21.6-31.8); Chloride 103 mmol/L (96-109); Chol/HDL Ratio 3.34 Ratio; Globulin 2.6 g/dL (1.6-3.3); Glucose 187 mg/dL (70-110); LDL Cholesterol,Calculated 82.1 mg/dL (0.0-131.0); Potassium 4.3 mmol/L (3.5-5.5); Sodium 140 mmol/L (135-145); Total Bilirubin 0.3 mg/dL (0.3-1.2); Total Protein 6.7 g/dL (6.2-8.2)
== END | disposition home or self-care (01) ==
LOC: LABWHC1 08:02
PROVIDERS: ATTEND Student in an Organized Health Care Education/Training Program
DX: Z13.6 Encounter for screening for cardiovascular disorders (principal); I50.9 Heart failure, unspecified; I42.9 Cardiomyopathy, unspecified; D72.9 Disorder of white blood cells, unspecified; E11.9 Type 2 diabetes mellitus without complications; E78.5 Hyperlipidemia, unspecified; E03.9 Hypothyroidism, unspecified; E83.42 Hypomagnesemia; R79.89 Other specified abnormal findings of blood chemistry
CPT/HCPCS: 36415; 80053; 80061; 83036; 83880; 84443; 85027

== ENCOUNTER 2024-10-14 09:53 | Day surgery (SDC) | payer MEDICARE ==
[2024-10-12 14:58] VITALS: BMI 32.8
[2024-10-14 10:51] LABS: Glucose,Whole Blood 93 mg/dL (70-110)
[2024-10-14] MEDS ORDERED: METHOTREXATE SODIUM (PF) 25 MG/ML 2 ML VIAL INTRATHECA NR (11:00)
[2024-10-14 11:04] VITALS: TEMP 97.1
--- NOTE | 2024-10-14 11:31 | P.PCN ---
Date of Procedure: 10/14/24 Procedure(s) Performed: Preoperative diagnosis: Lymphoma Post operative diagnoses: Lymphoma Procedure= lumbar puncture Anesthesia= local infiltration with lidocaine 1% 3 mL. Condition: stable Complication: none. Description of the procedure procedure risk and benefits discussed with the patient and family, consent signed. Patient and the procedure area placed in sitting position , back prepped with chlorhexidine 3 times been local infiltration of the skin and subcutaneous tissue with lidocaine 1% 3 mL for skin and subcu interstitial frustrations at L4 5 levels then 22-gauge Quincke-type needle advanced slowly at L4- 5 interlaminar space there was positive cerebrospinal fluid which was clear, no heme, no paresthesia ,total of 4 ML of clear cerebrospinal fluid collected , and after that patient received chemotherapy as per oncology services, patient received methotrexate intr athecally (given by Sandrita resendiz NP ), then the needle removed and a Band-Aid applied and patient tolerated the procedure well without any complications. note= patient had lymphoma he is getting chemotherapy as per oncology services and there was request to do lumbar puncture to give prophylactic chemotherapy intrathecally , and further management as per oncology services
[2024-10-14] MEDS: IV FLUID CONTINUATION 1,000 ML IV ONE (11:36)
[2024-10-14 11:40] VITALS: RESP 16
[2024-10-14 11:48] LABS: Glucose,Whole Blood 92 mg/dL (70-110)
[2024-10-14 11:59] VITALS: BP 150/90; PULSE 64
[2024-10-14 13:37] LABS: Appearance,CSF Clear; CSF Tube Number 1; CSF Tube Volume 3.8; Nucleated Cells, CSF 1 u/L (0-5); Red Blood Cell,CSF 1 u/L (0-10)
[2024-10-14 13:54] LABS: Glucose,CSF 78 mg/dL (40-70); Total Protein,CSF 74 mg/dL (12-60)
--- NOTE | 2024-10-14 15:28 | P.PCN ---
Date of Procedure: 10/14/24 Preoperative Diagnosis: Mantle cell lymphoma Postoperative Diagnosis: Mantle cell lymphoma Procedure(s) Performed: LP with intrathecal chemotherapy administration Estimated Blood Loss (ml): 0 IV fluids (ml): 0 Pathology: other (sent for) Condition: stable Disposition: same day Indications for Procedure: Mantle cell lymphoma Description of Procedure: LP performed by Dr. Gagnon, 4cc clear CSF removed. 12mg of preservative free methotrexate diluted to 5mg/ml with sterile/preservative free NS for a total 2.4ml was instilled slowly over 2 minutes followed by a 1.6cc sterile NS flush in a latex free syringe over 1 min. Needle was removed. Pt tolerated procedure well.
== END 2024-10-14 13:03 | disposition home or self-care (01) ==
LOC: ORPAIN 09:53
PROVIDERS: ATTEND Specialist
DX: C83.10 Mantle cell lymphoma, unspecified site (principal)
CPT/HCPCS: 62270; 82945; 84157; 88108; 89050; 96450

== ENCOUNTER → 2024-11-24 | Outpatient (CLI) | payer MEDICARE ==
[2024-11-24 10:46] LABS: African American GFR (CKD) >90 (>60 ml/min/1.73 sqM); Blood Urea Nitrogen 14 mg/dL (9-20); Non-African American GFR(CKD) >90 (>60 ml/min/1.73 sqM)
--- NOTE | 2024-11-24 15:03 | CT ---
EXAMINATION TYPE: CT ChestAbdPelvis w con CT DLP: 1912.4 mGycm, Automated exposure control for dose reduction was used. DATE OF EXAM: 11/24/2024 12:21 PM COMPARISON: PET CT 09/03/2024, 07/01/2024, CTA chest 08/12/2023, CT chest 07/16/2023, CT Chest Abdome n Pelvis With 04/30/2024 CLINICAL INDICATION:Male, 69 years old with history of C83.10 MANTLE CELL LYMPHOMA, UNSPECIFIED SITE; [facility], MANTLE CELL LYMPHOMA Technique: Multiple axial images of the chest, abdomen, and pelvis were obtained following the intrav enous administration of 100 mL Isovue-300. Oral contrast was administered. Two-dimensional coronal an d sagittal reconstructions were obtained. Findings: CHEST: LUNGS/ PLEURA: No pleural effusion, pneumothorax, focal consolidation. Bilateral lower lobe minimal d ependent subsegmental atelectasis. Mild centrilobular emphysematous changes. No suspicious pulmonary nodule or mass. AIRWAY: Patent and unremarkable.. HEART: Cardiomegaly is demonstrated.Trace pericardial effusion Moderate coronary artery calcification s present. MEDIASTINUM: No evidence of adenopathy. VASCULATURE: No aortic aneurysm. Mild atherosclerotic calcification of the aortic arch. MUSCULOSKELETAL: No acute osseous abnormalities. No aggressive osseous lesion. SOFT TISSUES/LYMPH NODES: Unremarkable. LOWER NECK: No significant findings. ABDOMEN: ABDOMEN LIVER: Unremarkable GALLBLADDER AND BILE DUCTS: Unremarkable. PANCREAS: Unremarkable. SPLEEN: Upper limits of normal for size measuring 13.9 cm. Previously it measured 15.1 cm. ADRENAL GLANDS: Unremarkable. KIDNEYS AND URETERS: No evidence of hydronephrosis or renal calculus. The kidneys enhance symmetrical ly. Contrast is demonstrated within both collecting systems and proximal ureters on the delayed phase . PELVIS BLADDER: Unremarkable REPRODUCTIVE: Unremarkable. ABDOMEN & PELVIS STOMACH AND BOWEL: Stomach and duodenum are unremarkable. Extensive distal colonic diverticulosis wit hout evidence for acute diverticulitis. The appendix is within normal limits. Enteric contrast reache s the mid to distal small bowel. No focal bowel wall thickening or surrounding inflammatory changes. No evidence of bowel obstruction. PERITONEUM: No evidence of pneumoperitoneum or free fluid. VASCULATURE: Mild atherosclerotic calcifications are present throughout the abdominal aorta and its b ranches. Few pelvic phleboliths. MUSCULOSKELETAL: No acute osseous abnormalities. No aggressive osseous lesion. Multilevel degenerativ e disc disease. Most pronounced at L1-L2 and L4-L5. LYMPH NODES: No evidence for lymphadenopathy. SOFT TISSUE/ABDOMINAL WALL: Unremarkable IMPRESSION: 1. No acute process within the chest, abdomen or pelvis. 2. No pathologically enlarged lymph nodes identified to suggest recurrence. 3. Decreased size of the spleen now at the upper limits of normal for size. 4. Colonic diverticulosis without evidence for acute diverticulitis. 5. Mild emphysematous changes. [facility], , 11/24/2024 3:01 PM
== END | disposition home or self-care (01) ==
LOC: RADCTMAIN 09:53
PROVIDERS: ATTEND Internal Medicine Hematology & Oncology
DX: C83.10 Mantle cell lymphoma, unspecified site (principal); K57.30 Diverticulosis of large intestine without perforation or abscess without bleeding; J43.9 Emphysema, unspecified
CPT/HCPCS: 82565; 84520; 71260; 74177; 36415; Q9967

== ENCOUNTER → 2024-12-14 | Outpatient (CLI) | payer MEDICARE ==
[2024-12-14 19:14] LABS: NT-Pro-B-Type Natriuretic Pept 159 pg/mL (0-125)
[2024-12-14 20:36] LABS: ALT 20 U/L (10-49); AST 21 U/L (14-35); Albumin/Globulin Ratio 1.54 Ratio (1.60-3.17); Alkaline Phosphatase 101 U/L (41-126); BUN/Creat Ratio 19.33 Ratio (12.00-20.00); Blood Urea Nitrogen 11.6 mg/dL (9.0-27.0); Calcium 9.5 mg/dL (8.7-10.3); Carbon Dioxide 26.9 mmol/L (21.6-31.8); Chloride 102 mmol/L (96-109); Globulin 2.6 g/dL (1.6-3.3); Glucose 251 mg/dL (70-110); Potassium 4.3 mmol/L (3.5-5.5); Sodium 140 mmol/L (135-145); Total Bilirubin 0.2 mg/dL (0.3-1.2); Total Protein 6.6 g/dL (6.2-8.2)
== END | disposition home or self-care (01) ==
LOC: LABWHC1 09:22
PROVIDERS: ATTEND Student in an Organized Health Care Education/Training Program
DX: I50.9 Heart failure, unspecified (principal); E11.9 Type 2 diabetes mellitus without complications; R79.89 Other specified abnormal findings of blood chemistry
CPT/HCPCS: 36415; 80053; 83036; 83880

== ENCOUNTER → 2025-03-02 | Outpatient (CLI) | payer MEDICARE ==
[2025-03-02 10:23] LABS: HCT 40.2 % (39.6-50.0); MCH 29.4 pg (27.0-32.0); MCHC 32.3 g/dL (32.0-37.0); Mean Platelet Volume 10.1 FL (9.5-12.2); NRBC Per 100 WBC 0 X 10*3/uL (0.00-0.01); Platelet Count 271 X 10*3/uL (140-440); RBC 4.42 X 10*6/uL (4.40-5.60); RDW 14.2 % (11.5-14.5); WBC 4.85 X 10*3/uL (4.50-10.00)
[2025-03-02 16:29] LABS: ALT 22 U/L (10-49); AST 19 U/L (14-35); Albumin 4.1 g/dL (3.8-4.9); Albumin/Globulin Ratio 1.58 Ratio (1.60-3.17); Alkaline Phosphatase 94 U/L (41-126); BUN/Creat Ratio 33.33 Ratio (12.00-20.00); Calcium 9.6 mg/dL (8.7-10.3); Carbon Dioxide 26.2 mmol/L (21.6-31.8); Chloride 104 mmol/L (96-109); Chol/HDL Ratio 3.05 Ratio; Globulin 2.6 g/dL (1.6-3.3); Glucose 174 mg/dL (70-110); LDL Cholesterol,Calculated 80.3 mg/dL (0.0-131.0); Potassium 4.5 mmol/L (3.5-5.5); Sodium 143 mmol/L (135-145); Total Bilirubin 0.3 mg/dL (0.3-1.2); Total Protein 6.7 g/dL (6.2-8.2)
[2025-03-02 16:39] LABS: NT-Pro-B-Type Natriuretic Pept 63 pg/mL (0-125)
== END | disposition home or self-care (01) ==
LOC: LABWHC1 07:50
PROVIDERS: ATTEND Student in an Organized Health Care Education/Training Program
DX: D72.9 Disorder of white blood cells, unspecified (principal); I50.9 Heart failure, unspecified; E03.9 Hypothyroidism, unspecified; E78.5 Hyperlipidemia, unspecified; E11.9 Type 2 diabetes mellitus without complications; R53.83 Other fatigue
CPT/HCPCS: 36415; 80053; 80061; 83036; 83880; 84443; 85027

== ENCOUNTER 2025-04-22 09:10 | Day surgery (SDC) | payer MEDICARE ==
[2025-04-19 08:16] VITALS: BMI 35.4
[2025-04-22] MEDS ORDERED: LIDOCAINE 1% (10MG/ML) FOR IV START INTRADERMA PRN (09:22)
[2025-04-22] MEDS: IV FLUID CONTINUATION 1,000 ML IV ONE (09:37)
[2025-04-22 09:54] LABS: Glucose,Whole Blood 185 mg/dL (70-110)
[2025-04-22] MEDS: LACTATED RINGERS 1,000 ML IV SCH (09:54)
[2025-04-22 09:57] VITALS: TEMP 97
[2025-04-22] MEDS ORDERED: PROPOFOL 10 MG/ML 20 ML VIAL IV ONE (10:19)
[2025-04-22] MEDS ORDERED: LIDOCAINE 1% INJ 10MG/ML (20 ML MDV) ONE (10:19)
--- NOTE | 2025-04-22 10:29 | P.PCN ---
Date of Procedure: 04/22/25 Procedure(s) Performed: BRIEF HISTORY: Patient is a 70-year-old, pleasant, white male discomfort of endoscopies upon evaluation of longstanding GERD and Ybarra's esophagus. He is on omeprazole 20 mg twice daily and daily has been having worsening heartburn.. PROCEDURE PERFORMED: Esophagogastroduodenoscopy with biopsy. PREOPERATIVE DIAGNOSIS: History of GERD and Ybarra's esophagus. IV sedation per anesthesia. PROCEDURE: After informed consent was obtained, the patient was brought into the endoscopy unit. IV conscious sedation was administered by Anesthesia under continuous monitoring. Initially the Olympus GIF-140 video endoscope was inserted into the mouth. Esophagus intubated without any difficulty. It was gradually advanced into the stomach and duodenum and carefully examined. The bulb and the second part of the duodenum appeared normal. The scope at this time was withdrawn to the stomach, adequately insufflated with air, and upon careful examination, mucosa of the antrum, body, cardia and the fundus appeared normal. The scope was then withdrawn into the esophagus. No hiatal hernia noted. The GE junction was located at 40 cm from the incisors. There was a long segment of Ybarra's esophagus extending from 37 to 40 cm from the incisors and multiple biopsies were done from this area. The rest of the esophagus appeared normal. There were no erosions or ulcerations seen and the patient tolerated the procedure well. IMPRESSION: 1. Ybarra's esophagus extending from 37 to 40 cm from the incisors status post multiple biopsies. 2. Small hiatal hernia. RECOMMENDATIONS: The findings of this examination were discussed with the patient as well as his family. He was advised to follow-up with the biopsy results. If the biopsy does not have any dysplasia, recommend repeat upper endoscopy in 3 years. In the meantime since the patient is having worsening heartburn despite being on omeprazole 20 mg twice daily, I recommended to change the medication to Protonix 40 mg twice daily and follow antireflux measures and use Pepcid at bedtime as needed
[2025-04-22 10:44] VITALS: RESP 16
[2025-04-22 11:05] VITALS: BP 133/93; PULSE 72
== END 2025-04-22 11:23 | disposition home or self-care (01) ==
LOC: ORWHC2ENDO 09:10
PROVIDERS: ATTEND Internal Medicine Gastroenterology
DX: K22.70 Barrett's esophagus without dysplasia (principal); K21.9 Gastro-esophageal reflux disease without esophagitis; K44.9 Diaphragmatic hernia without obstruction or gangrene; I25.2 Old myocardial infarction; Z95.5 Presence of coronary angioplasty implant and graft; I10 Essential (primary) hypertension; E78.5 Hyperlipidemia, unspecified; I25.10 Atherosclerotic heart disease of native coronary artery without angina pectoris; J44.9 Chronic obstructive pulmonary disease, unspecified; E11.9 Type 2 diabetes mellitus without complications; E03.9 Hypothyroidism, unspecified; Z87.891 Personal history of nicotine dependence; Z79.899 Other long term (current) drug therapy; Z99.81 Dependence on supplemental oxygen; Z79.51 Long term (current) use of inhaled steroids; Z79.84 Long term (current) use of oral hypoglycemic drugs; Z79.890 Hormone replacement therapy
CPT/HCPCS: 43239; 88305